=== PATIENT | female | born 1935 | race Caucasian/White ===

== ENCOUNTER → 2017-02-07 | Outpatient (CLI) | payer MEDICARE, BC ==
--- NOTE | 2017-02-07 12:54 | XR ---
EXAMINATION TYPE: XR cervical spine comp DATE OF EXAM: 02/07/2017 COMPARISON: NONE HISTORY: Pain TECHNIQUE: Four views are submitted. FINDINGS: The odontoid is intact. There are no compression deformities. The prevertebral soft tissue structur es are within normal limits. Severe degenerative disc disease with large anterior hypertrophic spurs at levels C3-C7. Marked facet arthropathy at all levels. Calcifications in the soft tissue the neck are likely vascular. Biapical pleural thickening. Multilev el foraminal encroachment at all levels bilaterally. Coarsened interstitial changes involving the dwaine g apices may been the basis of chronic interstitial lung disease. IMPRESSION: 1. Severe multilevel degenerative disc disease with bilateral foraminal encroachment recommend follow -up MRI. See above.
== END | disposition home or self-care (01) ==
LOC: RADXRYALE 10:35
PROVIDERS: ATTEND Physician Assistant Medical
DX: M50.31 Other cervical disc degeneration, high cervical region (principal)
CPT/HCPCS: 72050

== ENCOUNTER → 2017-09-16 | Outpatient (CLI) | payer MEDICARE, BC ==
--- NOTE | 2017-09-16 17:33 | XR ---
Right RIBS with PA chest x-ray HISTORY: Trauma 4 days prior, right rib pain Frontal view of the chest and 2 views of the right ribs submitted. No comparisons Chest x-ray is limited, patient is kyphotic and rotated. Interstitial lung disease is noted incidenta lly, the heart may be enlarged. Aorta is dense. Bone mineralization is decreased which could limit sensitivity. No displaced rib fracture is evident. There is no pneumothorax or pleural effusion. Arthropathy noted incidentally in the right shoulder. IMPRESSION: Exam is limited. Bone scan could be performed for increased sensitivity. Interstitial dwaine g disease and possible cardiomegaly. Low bone mineralization limits the exam. Only 2 view exam submit reynaldo of the ribs.
== END | disposition home or self-care (01) ==
LOC: RADXRYALE 11:17
PROVIDERS: ATTEND Physician Assistant Medical
DX: J84.9 Interstitial pulmonary disease, unspecified (principal); R07.89 Other chest pain

== ENCOUNTER 2017-10-26 15:21 | Emergency (ER) | payer MEDICARE, BC ==
[2017-10-26 16:30] LABS: Appearance,Urine Cloudy (Clear); Bacteria,Urine Many /hpf; Bilirubin,Urine Negative (Negative); Blood,Urine Negative (Negative); Color,Urine Yellow; Glucose,Urine (UA) Negative (Negative); Hyaline Casts,Urine 3 /lpf (0-2); Ketones,Urine Negative (Negative); Leukocyte Esterase,Urine Small (Negative); Mucus,Urine Rare /hpf; Nitrite,Urine Negative (Negative); PH, Urine 7.5 (5.0-8.0); Protein,Urine 1+ (Negative); RBC,Urine 8 /hpf (0-5); Specific Gravity,Urine 1.017 (1.001-1.035); Squamous Epithelial Cell,Urine 4 /hpf (0-4); WBC,Urine 29 /hpf (0-5)
[2017-10-26] MEDS ORDERED: ONDANSETRON 4 MG/2 ML VIAL IVP STA (17:21)
--- NOTE | 2017-10-26 17:28 | ED ---
General Adult HPI - General Chief complaint: Recheck/Abnormal Lab/Rx Stated complaint: Hypertension, altered mental status Time Seen by Provider: 10/26/17 17:04 Source: patient, family Mode of arrival: wheelchair Limitations: no limitations - History of Present Illness Initial comments: 82-year-old female patient presents to the emergency department today for evaluation of weakness and disorientation. Patient states that she woke feeling more weak than usual. The family states that she was using her walker inappropriately today and was banging it into a wall repeatedly. They state that she has went to the bathroom repeatedly attempting to urinate. Patient states that she feels shaky. Patient is also reporting nausea. She denies any chest pain, shortness of breath, abdominal pain, constipation, diarrhea, hematuria, dysuria, urinary urgency. She denies any back pain. She denies any fever or chills. Patient denies any recent rash, numbness, tingling, dizziness, headache, visual changes, or any other complaints. Patient does have a history of seizures starting in June 2017 for which she takes Keppra. 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 They deny any seizure activity today. - Related Data Previous Rx's Medication Instructions Recorded Cephalexin [Keflex] 500 mg PO BID #14 cap 10/26/17 Allergies Allergy/AdvReac Type Severity Reaction Status Date / Time phenytoin [From Dilantin] Allergy Unknown Verified 10/26/17 16:17 Review of Systems ROS Statement: Those systems with pertinent positive or pertinent negative responses have been documented in the HPI. ROS Other: All systems not noted in ROS Statement are negative. Past Medical History Past Medical History: Atrial Fibrillation, Diabetes Mellitus, Seizure Disorder History of Any Multi-Drug Resistant Organisms: None Reported Past Surgical History: Tubal Ligation Additional Past Surgical History / Comment(s): aneursym Past Psychological History: No Psychological Hx Reported Smoking Status: Never smoker Past Alcohol Use History: None Reported Past Drug Use History: None Reported General Exam Limitations: no limitations General appearance: alert, in no apparent distress, other (This is a well- developed elderly female patient in no acute distress. Vital signs upon presentation are temperature 97.4F, pulse 68, respirations 18, blood pressure 190/90, pulse ox 97% on room air.) Eye exam: Present: normal appearance, PERRL, EOMI. Absent: scleral icterus, conjunctival injection, periorbital swelling ENT exam: Present: normal exam, normal oropharynx, mucous membranes moist Respiratory exam: Absent: normal lung sounds bilaterally (Crackles bilateral bases), respiratory distress, wheezes, rales, rhonchi, stridor Cardiovascular Exam: Present: regular rate, normal rhythm, normal heart sounds. Absent: systolic murmur, diastolic murmur, rubs, gallop, clicks GI/Abdominal exam: Present: soft, normal bowel sounds. Absent: distended, tenderness, guarding, rebound, rigid Back exam: Present: normal inspection. Absent: CVA tenderness (R), CVA tenderness (L) Neurological exam: Present: alert, oriented X3, CN II-XII intact, other ( strength in all four extremities is equal and 3/5. ) Psychiatric exam: Present: normal affect, normal mood Skin exam: Present: warm, dry, intact, normal color. Absent: rash Course Vital Signs 10/26/17 10/26/17 16:13 17:56 Temperature 97.4 F L 98 F Pulse Rate 68 91 Respiratory 18 18 Rate Blood Pressure 198/90 188/73 O2 Sat by Pulse 97 97 Oximetry EKG Findings - EKG Comments: EKG Findings:: EKG obtained at 1745 shows atrial fibrillation with premature ventricular or aberrantly conducted complexes. Ventricular rate is 84, QRS duration 82, QT 356, QTC 420. Medical Decision Making - Medical Decision Making 82-year-old female patient presents to the emergency department today for complaints of weakness and confusion. Patient has had frequency of urination today. Physical examination is relatively unremarkable. Abdomen is soft and nontender. Patient has no CVA tenderness. Neurologic exam is within normal limits. Labs reviewed and showed a normal white blood cell count. Potassium is 3.3, lactic acid 1.0, urinalysis showed a cloudy appearance with 1+ protein, small leukocyte esterase, 8 red blood cells, 29 white blood cells, many bacteria , 3 hyaline casts, rare urine mucus. I did discuss findings and results with the family. Told in her symptoms could be related to urinary tract infection. I did offer admission for IV antibiotics. They state that the patient has appointment with her primary care physician trauma like to try treatment outpatient. We will give her a dose of IV Rocephin here in the department and discharge her home and a prescription of Keflex. We also replaced her potassium. Urine has been cultured. Chest x-ray was also obtained while here, did show evidence of possible soft tissue versus pneumonia versus neoplasm in the right lung, I did discuss this finding with the family as well and told follow-up x-ray should be obtained. Return parameters discussed in detail. They verbalize understanding and agree with this plan. - Lab Data Result diagrams: 10/26/17 17:53 10/26/17 17:53 Lab Results 10/26/17 10/26/17 10/26/17 Range/Units 16:18 17:53 17:53 WBC 8.4 (3.8-10.6) k/uL RBC 3.78 L (3.80-5.40) m/uL Hgb 11.5 (11.4-16.0) gm/dL Hct 34.2 (34.0-46.0) % MCV 90.5 (80.0-100.0) fL MCH 30.4 (25.0-35.0) pg MCHC 33.6 (31.0-37.0) g/dL RDW 13.4 (11.5-15.5) % Plt Count 266 (150-450) k/uL Neutrophils % 72 % Lymphocytes % 16 % Monocytes % 8 % Eosinophils % 3 % Basophils % 0 % Neutrophils # 6.0 (1.3-7.7) k/uL Lymphocytes # 1.3 (1.0-4.8) k/uL Monocytes # 0.7 (0-1.0) k/uL Eosinophils # 0.2 (0-0.7) k/uL Basophils # 0.0 (0-0.2) k/uL PT (9.0-12.0) sec INR (<1.2) APTT (22.0-30.0) sec Sodium (137-145) mmol/L Potassium (3.5-5.1) mmol/L Chloride (98-107) mmol/L Carbon Dioxide (22-30) mmol/L Anion Gap mmol/L BUN (7-17) mg/dL Creatinine (0.52-1.04) mg/dL Est GFR (CKD-EPI)AfAm (>60 ml/min/1.73 sqM) Est GFR (CKD-EPI)NonAf (>60 ml/min/1.73 sqM) Glucose (74-99) mg/dL Plasma Lactic Acid Babak (0.7-2.0) mmol/L Calcium (8.4-10.2) mg/dL Total Bilirubin (0.2-1.3) mg/dL AST (14-36) U/L ALT (9-52) U/L Alkaline Phosphatase (38-126) U/L Total Creatine Kinase 30 (30-135) U/L CK-MB (CK-2) 0.4 (0.0-2.4) ng/mL CK-MB (CK-2) Rel Index 1.3 Troponin I 0.030 (0.000-0.034) ng/mL Total Protein (6.3-8.2) g/dL Albumin (3.5-5.0) g/dL Urine Color Yellow Urine Appearance Cloudy H (Clear) Urine pH 7.5 (5.0-8.0) Ur Specific [place] 1.017 (1.001-1.035) Urine Protein 1+ H (Negative) Urine Glucose (UA) Negative (Negative) Urine Ketones Negative (Negative) Urine Blood Negative (Negative) Urine Nitrite Negative (Negative) Urine Bilirubin Negative (Negative) Urine Urobilinogen 4.0 (<2.0) mg/dL Ur Leukocyte Esterase Small H (Negative) Urine RBC 8 H (0-5) /hpf Urine WBC 29 H (0-5) /hpf Ur Squamous Epith Cells 4 (0-4) /hpf Urine Bacteria Many H (None) /hpf Hyaline Casts 3 H (0-2) /lpf Urine Mucus Rare H (None) /hpf 10/26/17 10/26/17 10/26/17 Range/Units 17:53 17:53 17:53 WBC (3.8-10.6) k/uL RBC (3.80-5.40) m/uL Hgb (11.4-16.0) gm/dL Hct (34.0-46.0) % MCV (80.0-100.0) fL MCH (25.0-35.0) pg MCHC (31.0-37.0) g/dL RDW (11.5-15.5) % Plt Count (150-450) k/uL Neutrophils % % Lymphocytes % % Monocytes % % Eosinophils % % Basophils % % Neutrophils # (1.3-7.7) k/uL Lymphocytes # (1.0-4.8) k/uL Monocytes # (0-1.0) k/uL Eosinophils # (0-0.7) k/uL Basophils # (0-0.2) k/uL PT 10.7 (9.0-12.0) sec INR 1.1 (<1.2) APTT 22.5 (22.0-30.0) sec Sodium 138 (137-145) mmol/L Potassium 3.3 L (3.5-5.1) mmol/L Chloride 95 L (98-107) mmol/L Carbon Dioxide 32 H (22-30) mmol/L Anion Gap 11 mmol/L BUN 15 (7-17) mg/dL Creatinine 0.75 (0.52-1.04) mg/dL Est GFR (CKD-EPI)AfAm 85 (>60 ml/min/1.73 sqM) Est GFR (CKD-EPI)NonAf 74 (>60 ml/min/1.73 sqM) Glucose 103 H (74-99) mg/dL Plasma Lactic Acid [place] 1.0 (0.7-2.0) mmol/L Calcium 11.2 H (8.4-10.2) mg/dL Total Bilirubin 0.7 (0.2-1.3) mg/dL AST 12 L (14-36) U/L ALT 21 (9-52) U/L Alkaline Phosphatase 100 (38-126) U/L Total Creatine Kinase (30-135) U/L CK-MB (CK-2) (0.0-2.4) ng/mL CK-MB (CK-2) Rel Index Troponin I (0.000-0.034) ng/mL Total Protein 7.3 (6.3-8.2) g/dL Albumin 4.2 (3.5-5.0) g/dL Urine Color Urine Appearance (Clear) Urine pH (5.0-8.0) Ur Specific [place] (1.001-1.035) Urine Protein (Negative) Urine Glucose (UA) (Negative) Urine Ketones (Negative) Urine Blood (Negative) Urine Nitrite (Negative) Urine Bilirubin (Negative) Urine Urobilinogen (<2.0) mg/dL Ur Leukocyte Esterase (Negative) Urine RBC (0-5) /hpf Urine WBC (0-5) /hpf Ur Squamous Epith Cells (0-4) /hpf Urine Bacteria (None) /hpf Hyaline Casts (0-2) /lpf Urine Mucus (None) /hpf - Radiology Data Radiology results: report reviewed, image reviewed Chronic interstitial changes are again noted. Increased opacity in the periphery of the right chest could be overlying soft tissue atelectasis and/or pneumonia and/or neoplasm. Cardiac silhouette is unchanged. No pneumothorax or pleural effusion is seen. There is diffuse osteopenia. Impression by Dr. Jose shows vague increased opacities in the periphery of the right lung most likely overlying soft tissue and compared to previous exam and allowing for differences in technique. Other etiologies are not excluded including atelectasis pneumonia and neoplasm. Disposition Clinical Impression: Urinary tract infection Disposition: HOME SELF-CARE Condition: Good Instructions: Urinary Tract Infection in Women (ED) Additional Instructions: Increase fluids. Complete antibiotic prescription in full. Follow-up with her primary care physician tomorrow as you have planned. Return here immediately for any new, worsening, or concerning symptoms. Prescriptions: Cephalexin [Keflex] 500 mg PO BID #14 cap Is patient prescribed a controlled substance at d/c from ED?: No Referrals: Adam Huntley DO [Primary Care Provider] - 1-2 days Time of Disposition: 18:50
[2017-10-26 18:10] LABS: Basophils % (A) 0 %; Eosinophils # (A) 0.2 k/uL (0-0.7); Eosinophils % (A) 3 %; HCT 34.2 % (34.0-46.0); HGB 11.5 gm/dL (11.4-16.0); Lymphocytes # (A) 1.3 k/uL (1.0-4.8); Lymphocytes % (A) 16 %; MCH 30.4 pg (25.0-35.0); MCHC 33.6 g/dL (31.0-37.0); MCV 90.5 fL (80.0-100.0); Mean Platelet Volume 7.4; Monocytes # (A) 0.7 k/uL (0-1.0); Monocytes % (A) 8 %; Neutrophils % (A) 72 %; Platelet Count 266 k/uL (150-450); RBC 3.78 m/uL (3.80-5.40); RDW 13.4 % (11.5-15.5); WBC 8.4 k/uL (3.8-10.6)
[2017-10-26 18:12] LABS: INR 1.1 (<1.2); Partial Thromboplastin Time 22.5 sec (22.0-30.0); Prothrombin Time 10.7 sec (9.0-12.0)
[2017-10-26 18:15] LABS: Albumin 4.2 g/dL (3.5-5.0); Calcium 11.2 mg/dL (8.4-10.2); Potassium 3.3 mmol/L (3.5-5.1); Total Bilirubin 0.7 mg/dL (0.2-1.3); Total Protein 7.3 g/dL (6.3-8.2)
--- NOTE | 2017-10-26 18:23 | XR ---
EXAMINATION TYPE: XR chest 2V DATE OF EXAM: 10/26/2017 COMPARISON: September 16, 2017 HISTORY: Weakness TECHNIQUE: Frontal and lateral views of the chest are obtained. FINDINGS: Chronic interstitial changes are again noted. Increased opacity in the periphery of the ri ght chest could be overlying soft tissue atelectasis and/or pneumonia and/or neoplasm. Cardiac silhou ette is unchanged. No pneumothorax or pleural effusion is seen. There is diffuse osteopenia. IMPRESSION: Vague increased opacities in the periphery of the right lung most likely overlying soft tissue and co mpared to previous exam and allowing for differences in technique. Other etiologies are not excluded including atelectasis pneumonia and neoplasm.
[2017-10-26 18:38] LABS: Creatine Kinase MB 0.4 ng/mL (0.0-2.4); Troponin I 0.03 ng/mL (0.000-0.034)
[2017-10-26] MEDS ORDERED: cefTRIAXone IN SWFI 1,000 MG/10 ML SYRINGE IVP STA (18:46)
[2017-10-26] MEDS ORDERED: POTASSIUM CHLORIDE ER 20 MEQ TAB.ER PO STA (18:47)
[2017-10-26 19:32] VITALS: BP 174/74; PULSE 80; RESP 20; TEMP 98.2
== END 2017-10-26 19:31 | disposition home or self-care (01) ==
LOC: EC 15:21
DX: N39.0 Urinary tract infection, site not specified (principal); R41.82 Altered mental status, unspecified; R11.0 Nausea; E87.6 Hypokalemia; Z88.8 Allergy status to other drugs, medicaments and biological substances
CPT/HCPCS: 36415; 93005; 80053; 82550; 82553; 83605; 84484; 85025; 85610; 85730; 81001; 87040; 87086; 71046; 99285; 96374; 96375; J2405; J0696; 87077; 87186

== ENCOUNTER → 2018-03-06 | Outpatient (CLI) | payer MEDICARE, BC ==
--- NOTE | 2018-03-06 12:48 | XR ---
EXAMINATION TYPE: XR chest 2V DATE OF EXAM: 03/06/2018 COMPARISON: Prior chest x-ray 10/26/2017 HISTORY: Cough and shortness of breath TECHNIQUE: Frontal and lateral views of the chest are obtained. FINDINGS: Diffuse interstitial lung disease is again noted, there may be underlying honeycombing. No evident pneumothorax or pleural effusion. Heart remains enlarged. Patient is rotated. Pulmonary vasc ularity and checo not significantly changed. There is a spinal curvature present. Bone mineralization is reduced. IMPRESSION: Interstitial lung disease is extensive.
== END | disposition home or self-care (01) ==
LOC: RADXRYALE 11:05
PROVIDERS: ATTEND Physician Assistant Medical
DX: J84.9 Interstitial pulmonary disease, unspecified (principal)
CPT/HCPCS: 71046

== ENCOUNTER → 2018-09-30 | Outpatient (CLI) | payer MEDICARE, BC ==
--- NOTE | 2018-10-01 14:35 | CT ---
EXAMINATION TYPE: CT ChestAbdPelvis wo/w con DATE OF EXAM: 09/30/2018 INDICATION: Abnormal weight loss. COMPARISON: CT abdomen and pelvis 07/26/2015 CT DLP: 818.4 mGycm CONTRAST: Performed with Oral Contrast and with IV Contrast, patient injected with 100ml mL of Isovue 300. TECHNIQUE: Axial images at 5 mm thick sections. Reconstructed images in the coronal plane. Delayed images through the kidneys. FINDINGS: CT CHEST: None Portion of the thyroid visualized is normal. There appears to be scarring and thickening at the bilateral lung apices. Consider follow-up CT chest in 3-6 months to confirm stability. Neoplasm is not excluded on the basis of this examination. There are increased lung markings throughout the bilateral lung [place]. Some pulmonary fibrosis is li severino present. No enlarged mediastinal or hilar adenopathy is evident. Scattered small lymph nodes are present. The ascending aorta diameter at the level of the main pulmonary artery is 3.6 cm. The main pulmonary artery diameter at the bifurcation is 2.5 cm. Mild coronary artery calcifications present. CT ABDOMEN: Liver: Normal Spleen: Normal Pancreas: Atrophic Adrenal glands: The adrenal glands are normal. Gallbladder: Normal Kidneys: No masses are evident. No hydronephrosis is present. No cysts are present. No renal stone s are evident. Aorta: Vascular calcification is within the aorta. Inferior vena cava: Normal. CT PELVIS: Loops of bowel within the abdomen and pelvis are normal. There are loops of bowel which are incom pletely distended or lack oral contrast limiting their evaluation. Contrast extends to the descending colon region. There is a fecal bolus of the rectum. Appendix: Normal as visualized. Urinary bladder: Partially decompressed limiting evaluation. Genitourinary structures: Air-filled vaginal vault appears to be present. Uterus is absent. Adnexal r egions are clear. Osseous structures: No suspicious lytic or sclerotic lesions. Facet degenerative changes are present. IMPRESSIONS: 1. Pulmonary fibrosis. There is irregular lung thickening at the lung apices bilaterally. Underlying neoplasm is not excluded. Consider short-term follow-up. 2. No suspicious interval changes CT abdomen and pelvis.
== END | disposition home or self-care (01) ==
LOC: RADCTMAIN 13:36
DX: J84.10 Pulmonary fibrosis, unspecified (principal); J98.4 Other disorders of lung; R63.4 Abnormal weight loss
CPT/HCPCS: 82565; 84520; 71270; 74178; 36415; Q9967

== ENCOUNTER → 2018-10-02 | Outpatient (CLI) | payer MEDICARE, BC ==
--- NOTE | 2018-10-02 13:23 | XR ---
EXAM TYPE: LUMBAR SPINE X RAY SERIES COMPARISON: CT scan 09/30/2018, lumbar spine series 08/11/2015 HISTORY: Pain TECHNIQUE: 4 views are submitted. FINDINGS: There is diffuse osteopenia. Curvature the spine noted. Due to overlying bowel gas and retained contr ast assessment is limited. There are compression deformities of L5 and T12 of indeterminate age. IMPRESSION: 1. There is progression of compression fracture of L5 relative to the exam of 2016. 2. There is progression of the compression fracture of T12 relative to the prior exam. Correlate with MRI as clinically warranted. 3. Multilevel degenerative disc disease. A Yellow level critical message alert has been initiated for Adam Huntley DO via the [employer] Critical Results System on 10/02/2018 1:21 PM. This message alert has been sent to Adam liard DO via the preferences provided by the clinician for the receipt of Radiology Critical Findings. Message ID [id number].
== END | disposition home or self-care (01) ==
LOC: RADXRYALE 11:52
PROVIDERS: ATTEND Family Medicine
DX: S32.059G Unspecified fracture of fifth lumbar vertebra, subsequent encounter for fracture with delayed healing (principal); S22.089G Unspecified fracture of T11-T12 vertebra, subsequent encounter for fracture with delayed healing; M51.36 Other intervertebral disc degeneration, lumbar region
CPT/HCPCS: 72100

== ENCOUNTER 2018-10-05 15:16 | Inpatient (IN) | payer MEDICARE, BC ==
[2018-10-05] MEDS ORDERED: HYDROmorphone 1 MG/ML 1 ML SYRINGE IVP STA ×2 (16:11→19:04)
[2018-10-05] MEDS ORDERED: KETOROLAC 60 MG/2 ML VIAL IVP STA (16:11)
--- NOTE | 2018-10-05 16:15 | ED ---
General Adult HPI - General Source: patient, RN notes reviewed Mode of arrival: EMS Limitations: no limitations <Martin Flynn - Last Filed: 10/05/18 17:02> <Martin Spears - Last Filed: 10/05/18 19:28> - General Chief complaint: Fall Stated complaint: fall Time Seen by Provider: 10/05/18 15:45 - History of Present Illness Initial comments: This is an 83-year-old female presents to the emergency department complaining of lower back pain particularly on the left. Patient states she fell on Friday landed on her buttocks and back and since then the pain is been getting progressively worse. Patient states she seen her primary medical care doctor he did x-rays and gave her a shot for pain but the pain continues to get worse per patient denies any numbness or weakness. Patient states problem is anytime she moves she gets the pain in her lower back. Patient denies any other injury since that time. Patient denies any fever chills. Patient denies any chest pain shortness of breath or difficulty breathing. Patient denies any abdominal pain. Patient denies any dysuria hematuria urinary frequency. (Martin Flynn) - Related Data Home Medications Medication Instructions Recorded Confirmed Carvedilol [Coreg] 6.25 mg PO BID 10/05/18 10/05/18 Cholecalciferol [Vitamin D3] 1,000 unit PO DAILY 10/05/18 10/05/18 Clopidogrel [Plavix] 75 mg PO DAILY@1200 10/05/18 10/05/18 Digestive Probiotic 1 tab PO DAILY 10/05/18 10/05/18 Lacosamide [Vimpat] 50 mg PO Q12H 10/05/18 10/05/18 Lovastatin [Mevacor] 20 mg PO HS 10/05/18 10/05/18 Metoclopramide [Reglan] 5 mg PO TID 10/05/18 10/05/18 Ondansetron [Zofran ODT] 4 mg PO TID PRN 10/05/18 10/05/18 Pantoprazole [Protonix] 40 mg PO DAILY 10/05/18 10/05/18 Quinapril HCl [Accupril] 10 mg PO DAILY@1200 10/05/18 10/05/18 guaiFENesin [Mucinex] 600 mg PO BID 10/05/18 10/05/18 levETIRAcetam [Keppra Oral 1,000 mg PO BID 10/05/18 10/05/18 Solution] metFORMIN HCL [Glucophage] 500 mg PO DAILY 10/05/18 10/05/18 Allergies Allergy/AdvReac Type Severity Reaction Status Date / Time phenytoin [From Dilantin] Allergy Anaphylaxis Verified 10/05/18 16:24 Review of Systems ROS Other: All systems not noted in ROS Statement are negative. <Martin Flynn - Last Filed: 10/05/18 17:02> ROS Other: All systems not noted in ROS Statement are negative. <Martin Spears - Last Filed: 10/05/18 19:28> ROS Statement: Those systems with pertinent positive or pertinent negative responses have been documented in the HPI. Past Medical History Past Medical History: Atrial Fibrillation, Diabetes Mellitus, Seizure Disorder History of Any Multi-Drug Resistant Organisms: None Reported Past Surgical History: Tubal Ligation Additional Past Surgical History / Comment(s): aneursym Past Psychological History: No Psychological Hx Reported Smoking Status: Never smoker Past Alcohol Use History: None Reported Past Drug Use History: None Reported <Martin Flynn - Last Filed: 10/05/18 17:02> General Exam Limitations: no limitations <Martin Flynn - Last Filed: 10/05/18 17:02> - General Exam Comments Initial Comments: GENERAL: Patient is somewhat cachectic in appearance but alert and oriented 4. ENT: Neck is soft and supple. No significant lymphadenopathy is noted. Oropharynx is clear. Moist mucous membranes. Neck has full range of motion without eliciting any pain. EYES: The sclera were anicteric and conjunctiva were pink and moist. Extraocular movements were intact and pupils were equal round and reactive to light. Eyelids were unremarkable. PULMONARY: Unlabored respirations. Good breath sounds bilaterally. No audible rales rhonchi or wheezing was noted. CARDIOVASCULAR: There is a regular rate and rhythm without any murmurs gallops or rubs. ABDOMEN: Soft and nontender with normal bowel sounds. SKIN: Skin is clear with no lesions or rashes and otherwise unremarkable. NEUROLOGIC: Patient is alert and oriented x3. Cranial nerves II through XII are grossly intact. Motor and sensory are also intact. Normal speech, volume and content. Symmetrical smile. MUSCULOSKELETAL: Patient has some tenderness of the lower lumbar spine as well as the sacral area especially on the left. LYMPHATICS: No significant lymphadenopathy is noted PSYCHIATRIC: Normal psychiatric evaluation. (Martin Flynn) Course <Martin Spears - Last Filed: 10/05/18 19:28> Vital Signs 10/05/18 15:49 Temperature 97.0 F L Pulse Rate 79 Respiratory 18 Rate Blood Pressure 180/117 O2 Sat by Pulse 97 Oximetry - Reevaluation(s) Reevaluation #1: 10/05/18 19:28 Medical record is reviewed (Martin Spears) Reevaluation #2: 10/05/18 19:28 Is unable to ambulate or move, still has pain (Martin Spears) Medical Decision Making <Martin Flynn - Last Filed: 10/05/18 17:02> - Radiology Data Radiology results: report reviewed (CT of the lumbosacral spine positive for fracture), image reviewed <Martin Spears - Last Filed: 10/05/18 19:28> - Medical Decision Making Dr. Spears to taking over the care of this patient at 5:00 (Martin Flynn) 83 female to ER for evaluation status post fall serious back pain and inability to ambulate no ADLs. T12 fracture acute, will admit for pain control and possible rehab placement (Martin Spears) - Lab Data Lab Results 10/05/18 Range/Units 19:15 Urine Color Yellow Urine Appearance Cloudy H (Clear) Urine pH 5.5 (5.0-8.0) Ur Specific [place] 1.013 (1.001-1.035) Urine Protein Trace H (Negative) Urine Glucose (UA) Negative (Negative) Urine Ketones 1+ H (Negative) Urine Blood Negative (Negative) Urine Nitrite Negative (Negative) Urine Bilirubin Negative (Negative) Urine Urobilinogen 2.0 (<2.0) mg/dL Ur Leukocyte Esterase Small H (Negative) Urine RBC 2 (0-5) /hpf Ur Squamous Epith Cells 2 (0-4) /hpf Urine Bacteria Many H (None) /hpf Urine Mucus Rare H (None) /hpf Disposition <Martin Flynn - Last Filed: 10/05/18 17:02> Is patient prescribed a controlled substance at d/c from ED?: No <Martin Spears - Last Filed: 10/05/18 19:28> Clinical Impression: Fall, Acute low back pain, Back contusion, T12 compression fracture Disposition: ADMITTED IP TO THIS HOSP Condition: Good Instructions (If sedation given, give patient instructions): Fall Prevention for Older Adults (ED), Back Pain (ED) Referrals: Adam Huntley DO [Primary Care Provider] - 1-2 days
[2018-10-05] MEDS: ONDANSETRON 4 MG/2 ML VIAL IVP STA (16:23)
--- NOTE | 2018-10-05 18:14 | CT ---
EXAMINATION TYPE: CT sacrum wo con DATE OF EXAM: 10/05/2018 COMPARISON: None HISTORY: Fall, low back pain. CT DLP: 524.3 mGycm Automated exposure control for dose reduction was used. FINDINGS: Sacral and coccygeal segments have normal alignment. There is osteopenia. I see no fracture line. Sac roiliac joints are intact. There is atherosclerotic vascular calcification. IMPRESSION: NO ACUTE ABNORMALITY OF THE SACRUM AND COCCYX. NO FRACTURE SEEN.
--- NOTE | 2018-10-05 18:23 | CT ---
EXAMINATION TYPE: CT lumbar spine wo con DATE OF EXAM: 10/05/2018 6:07 PM COMPARISON: 09/30/2018 HISTORY: Fall, low back pain. CT DLP: 524.3 combined dlp mGycm Automated exposure control for dose reduction was used. Unenhanced CT of the lumbar spine was performed. Bone and soft tissue window settings are submitted as well as coronal and sagittal reconstructions. There is 50% compression deformity of the L5 vertebral body. There is osteopenia. There is 40% compre ssion deformity of T12 vertebral body. Abdominal aorta is atheromatous. Sacroiliac joints are intact. Posterior elements appear intact. There is hypertrophic multilevel lumbar facet arthropathy. IMPRESSION: There is a compression fracture of T12 that has progressed compared to old CT scan of 09/30/2018 and co nsistent with continuation of fracture. There is old fracture of L5 unchanged.
[2018-10-05] MEDS ORDERED: SODIUM CHLORIDE 0.9% 1,000 ML IV ONE (19:04)
[2018-10-05] MEDS ORDERED: SODIUM CHLORIDE 0.9% 1,000 ML IV STA ×2 (19:04)
[2018-10-05] MEDS ORDERED: SODIUM CHLORIDE 0.9% 500 ML 500 ML IV STA (19:04)
[2018-10-05 19:25] LABS: Appearance,Urine Cloudy (Clear); Bacteria,Urine Many /hpf; Bilirubin,Urine Negative (Negative); Blood,Urine Negative (Negative); Color,Urine Yellow; Glucose,Urine (UA) Negative (Negative); Ketones,Urine 1+ (Negative); Leukocyte Esterase,Urine Small (Negative); Mucus,Urine Rare /hpf; Nitrite,Urine Negative (Negative); PH, Urine 5.5 (5.0-8.0); Protein,Urine Trace (Negative); RBC,Urine 2 /hpf (0-5); Specific Gravity,Urine 1.013 (1.001-1.035); Squamous Epithelial Cell,Urine 2 /hpf (0-4)
[2018-10-05 20:34] LABS: Albumin 3.2 g/dL (3.5-5.0); Calcium 8.7 mg/dL (8.4-10.2); Magnesium 1.6 mg/dL (1.6-2.3); Phosphorus 3.3 mg/dL (2.5-4.5); Total Bilirubin 1.4 mg/dL (0.2-1.3); Total Protein 6.5 g/dL (6.3-8.2)
[2018-10-05 20:37] LABS: Prothrombin Time 10.7 sec (9.0-12.0)
[2018-10-05 20:40] LABS: Basophils % (A) 0 %; Eosinophils # (A) 0.1 k/uL (0-0.7); Eosinophils % (A) 1 %; HCT 33.6 % (34.0-46.0); HGB 11.3 gm/dL (11.4-16.0); Lymphocytes # (A) 0.8 k/uL (1.0-4.8); Lymphocytes % (A) 7 %; MCHC 33.8 g/dL (31.0-37.0); MCV 88.9 fL (80.0-100.0); Mean Platelet Volume 7.5; Monocytes # (A) 0.9 k/uL (0-1.0); Monocytes % (A) 9 %; Neutrophils # (A) 8.8 k/uL (1.3-7.7); Neutrophils % (A) 81 %; Platelet Count 201 k/uL (150-450); RBC 3.78 m/uL (3.80-5.40); RDW 13.3 % (11.5-15.5); WBC 10.9 k/uL (3.8-10.6)
[2018-10-06 07:17] LABS: Glucose,Whole Blood 77 mg/dL (75-99)
[2018-10-06] MEDS: HYDROmorphone 0.5 MG/0.5 ML SYRINGE IVP PRN ×2 (08:30→21:14)
[2018-10-06] MEDS ORDERED: ALPRAZolam 0.25 MG TAB PO PRN (10:08)
[2018-10-06] MEDS ORDERED: CARVEDILOL 6.25 MG TAB PO STA (11:05)
[2018-10-06] MEDS: LISINOPRIL 10 MG TAB PO SCH (11:29)
[2018-10-06] MEDS: METOCLOPRAMIDE 5 MG TAB PO SCH (11:30)
[2018-10-06] MEDS: CLOPIDOGREL 75 MG TAB PO SCH (11:30)
[2018-10-06] MEDS: ONDANSETRON 4 MG/2 ML VIAL IVP STA (11:36)
[2018-10-06 11:39] LABS: Glucose,Whole Blood 82 mg/dL (75-99)
[2018-10-06] MEDS: levETIRAcetam ORAL SOLN 500 MG/5 ML CUP PO SCH (11:42)
[2018-10-06] MEDS: LACOSAMIDE 50 MG TABLET PO SCH ×2 (11:43→22:56)
[2018-10-06 15:38] VITALS: BMI 25.8
[2018-10-06] MEDS: CARVEDILOL 6.25 MG TAB PO SCH (16:47)
[2018-10-06 17:17] LABS: Glucose,Whole Blood 118 mg/dL (75-99)
[2018-10-06 20:13] LABS: Glucose,Whole Blood 136 mg/dL (75-99)
[2018-10-06] MEDS: ATORVASTATIN 10 MG TAB PO SCH (22:52)
[2018-10-06] MEDS: guaiFENesin 600 MG TABLET.ER PO SCH (22:53)
[2018-10-06] MEDS: HEPARIN SODIUM,PORCINE 5,000 UNIT/ML 1 ML VIAL SQ SCH (22:55)
--- NOTE | 2018-10-07 00:37 | HP ---
HISTORY AND PHYSICAL DATE OF SERVICE: 10/06/2018 CHIEF COMPLAINT: Fall and back pain. HISTORY OF PRESENT ILLNESS: This is this 83-year-old female with a past medical history of multiple medical problems including atrial fibrillation, ,diabetes, seizure disorder, brain aneurysm, tubal ligation being for Dr. Adam Huntley in the outpatient setting, was being evaluated for weight loss recently. The patient apparently had a CT scan. Patient went to the parking lot and patient apparently fell. Patient complaining of back pain. Patient is not getting up for the last couple days. The family is concerned. He was taken to [facility] and admitted for further evaluation and treatment. Initial evaluation showed WBC 10.9, and the patient also had evidence of UTI. Patient also had a lumbar spine CT scan which showed whole fracture L5 and compression fracture of T12 that is progressed compared to the old one. The patient was admitted for evaluation and treatment. There is no history of fevers or rigors. No history of headache, loss of consciousness or seizures. PAST MEDICAL HISTORY: History of atrial ablation, history of diabetes, seizure, history of brain aneurysm. MEDICATIONS: 1. Glucophage 500 mg p.o. daily. 2. Keppra 1000 mg b.i.d. 3. Mucinex mg b.i.d. 4. Lexapro 10 mg. 5. Protonix 40 mg. 6. Zofran 4 mg t.i.d. p.r.n. 7. Reglan 5 mg p.o. t.i.d. 8. Mevacor 20 mg p.o. at bedtime. 9. Vimpat 50 mg p.o. b.i.d. 10.Digestive probiotic 1 tablet p.o. daily. 11.Plavix 75 mg. 12.Vitamin D 3000 daily. 13.Coreg 6.25 mg p.o. b.i.d. ALLERGIES: PHENYTOIN. FAMILY HISTORY: History of arthritis. SOCIAL HISTORY: No history of smoking, no history of alcohol intake. REVIEW OF SYSTEMS: ENT: No diminished hearing or diminished vision. CARDIOVASCULAR: No angina or palpitations. RESPIRATORY: As mentioned earlier. GI: No nausea. : No dysuria or hematuria. MUSCULOSKELETAL: As mentioned. ENDOCRINE: Diabetes mellitus. CONSTITUTIONAL: As mentioned. PHYSICAL EXAMINATION: Alert oriented x3. Pulse is 84, blood pressure 160/83, respirations 16, temperature 97.2, pulse ox 100 percent on 2 L HEENT: Conjunctivae normal. Oral mucosa moist. NECK: No jugular venous distention. No lymph node enlargement CARDIOVASCULAR: S1 and S2 muffled. RESPIRATORY SYSTEM: Breath sounds diminished at the bases. No rhonchi. No crackles. ABDOMEN: Soft. EXTREMITIES: No edema. NERVOUS SYSTEM: No numbness or weakness. BACK: Tenderness present. LAB STUDIES: WBC 11.1, hemoglobin 11.2, sodium 130, potassium 4. ASSESSMENT: 1. Fall with severe back pain with fracture of T12. 2. Gait dysfunction. 3. Acute urinary tract infection present on admission. 4. Hyponatremia. 5. Gait dysfunction. 6. Increased WBC. 7. Anemia, normocytic. 8. Atrial fibrillation. 9. Diabetes mellitus type 2. 10.Seizure disorder. 11.History of brain aneurysm. RECOMMENDATIONS AND DISCUSSION: In this 83 woman who presented with multiple complex medical issues, we will monitor the patient closely, continue the current medications and symptomatic treatment. Would recommend pain medications both intravenous and oral. Otherwise I would also recommend orthopedic evaluation for continued monitoring. The patient had severe pain at this time. Patient will need more than 2 days of inpatient hospitalization for continued evaluation and treatment. I would also recommend possible ECF rehab also. As far as UTI is concerned, would recommend a set of cultures and IV antibiotic. Resume the home medications. DVT prophylaxis. Repeat labs. IV fluids will also will be ordered. Otherwise, prognosis guarded because of multiple complex medical issues. n PIA / CHAITANYAN: [id number] / MTDD
[2018-10-07] MEDS: METOCLOPRAMIDE 5 MG TAB PO SCH ×4 (00:41→20:07)
[2018-10-07] MEDS: levETIRAcetam ORAL SOLN 500 MG/5 ML CUP PO SCH ×3 (00:41→20:06)
[2018-10-07] MEDS: HYDROmorphone 0.5 MG/0.5 ML SYRINGE IVP PRN (06:35)
[2018-10-07] MEDS: CARVEDILOL 6.25 MG TAB PO SCH ×2 (06:36→17:02)
[2018-10-07 07:12] LABS: Glucose,Whole Blood 98 mg/dL (75-99)
--- NOTE | 2018-10-07 09:13 | P.CNOR ---
History of Present Illness - [facility] Consult date: 10/06/18 Requesting physician: Emilie De La Torre Consult reason: fracture (Acute T12 compression fracture deformity status post fall) History of present illness: Patient is a very pleasant 83-year-old female who is seen and examined the bedside for further evaluation in regards to acute thoracic back pain and evidence of acute T12 compression fracture deformity. Patient is having some difficulty with constipation. Family states the patient has not been eating much food lately as well. Last week she had a CT abdomen and pelvis with contrast performed on 09/30/2017. Following the imaging she felt sick and nauseous. She fell in the parking lot. Since that time she has had an exacerbation of thoracic back pain. Her pain was unable to be controlled at home. She was brought to the emergency department via EMS yesterday, 10/05/2018. Multiple imaging modalities were taken at that time including CT of the lumbar spine and CT of the sacrum. X-rays of the lumbar spine were also performed by her primary care provider on 10/02/2018. Patient states she has had significant thoracic back pain since her recent fall on 09/30/2018. Her pain is exacerbated with any activities of the spine. She does admit to chronic low back pain. She feels her symptoms are currently different than her regular chronic pain. She currently denies any specific lower extremity weakness or radiculopathy bilaterally she denies any acute changes in the lower extremities. She normally ambulates with the assistance of a wheeled walker. Her family states she has drifted during ambulation as long as they can remember. Patient continues to have some nausea following her computed tomography scan imaging performed last week. Family states providers her discussing the possibility of a reaction to the contrast used for the computed tomography scan. 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 Past Anesthesia/Blood Transfusion Reactions: No Reported Reaction Past Psychological History: No Psychological Hx Reported Smoking Status: Never smoker Past Alcohol Use History: None Reported Past Drug Use History: None Reported - Past Family History Daughter(s) Additional Family Medical History / Comment(s): arthritis Medications and Allergies Home Medications Medication Instructions Recorded Confirmed Type Carvedilol [Coreg] 6.25 mg PO BID 10/05/18 10/05/18 History Cholecalciferol [Vitamin D3] 1,000 unit PO DAILY 10/05/18 10/05/18 History Clopidogrel [Plavix] 75 mg PO DAILY@1200 10/05/18 10/05/18 History Digestive Probiotic 1 tab PO DAILY 10/05/18 10/05/18 History Lacosamide [Vimpat] 50 mg PO Q12H 10/05/18 10/05/18 History Lovastatin [Mevacor] 20 mg PO HS 10/05/18 10/05/18 History Metoclopramide [Reglan] 5 mg PO TID 10/05/18 10/05/18 History Ondansetron [Zofran ODT] 4 mg PO TID PRN 10/05/18 10/05/18 History Pantoprazole [Protonix] 40 mg PO DAILY 10/05/18 10/05/18 History Quinapril HCl [Accupril] 10 mg PO DAILY@1200 10/05/18 10/05/18 History guaiFENesin [Mucinex] 600 mg PO BID 10/05/18 10/05/18 History levETIRAcetam [Keppra Oral 1,000 mg PO BID 10/05/18 10/05/18 History Solution] metFORMIN HCL [Glucophage] 500 mg PO DAILY 10/05/18 10/05/18 History Allergies Allergy/AdvReac Type Severity Reaction Status Date / Time phenytoin [From Dilantin] Allergy Anaphylaxis Verified 10/05/18 16:24 Physical Examination Physical exam: Patient is awake, alert, and oriented 3 Vital signs stable Good chest excursion with deep inspiration and expiration Abdomen soft nontender Examination of lumbar spine reveals skin is intact with no abrasions, lacerations, or bruises; no erythema, purulence or signs of infection Evidence of thoracolumbar kyphosis Significant pain with palpation of the lower thoracic spine No significant pain with palpation of the lower lumbar spine Dorsiflexion, plantarflexion, and extensor hallucis longus positive sustained bilaterally Patient is able to move legs independently in bed but slowly No lower extremity hyperreflexia bilaterally No signs or symptoms of DVT; no calf pain No pain with internal and external rotation of the hips bilaterally Neurovascularly intact Results Pertinent studies: Lumbar spine CT taken on 10/05/2018: T12 wedging vertebral body compression fracture deformity at approximately 40% height loss that has progressed as compared to recent computed tomography scan performed on 09/30/2018; L5 chronic compression fracture deformity at approximately 50% height loss; osteopenia; sclerosis of the abdominal aorta; multilevel facet hypertrophy CT of the sacrum taken on 10/05/2018: No acute abnormality of the sacrum and coccyx; no evidence of fracture; osteopenia; sacroiliac joints appear to be intact X-ray of the lumbar spine taken on 10/02/2018: T12 compression fracture deformity with progression as compared to recent study performed on 09/30/2018; L5 compression fracture deformity with some progression as compared to previous lumbar imaging taken on 08/11/2015; multilevel degenerative disc disease - Labs Labs: Abnormal Lab Results - Last 24 Hours (Table) 10/05/18 10/05/18 10/05/18 Range/Units 19:15 19:50 19:50 WBC 10.9 H (3.8-10.6) k/uL RBC 3.78 L (3.80-5.40) m/uL Hgb 11.3 L (11.4-16.0) gm/dL Hct 33.6 L (34.0-46.0) % Neutrophils # 8.8 H (1.3-7.7) k/uL Lymphocytes # 0.8 L (1.0-4.8) k/uL Sodium 130 L (137-145) mmol/L Chloride 87 L (98-107) mmol/L Carbon Dioxide 31 H (22-30) mmol/L BUN 26 H (7-17) mg/dL Total Bilirubin 1.4 H (0.2-1.3) mg/dL Albumin 3.2 L (3.5-5.0) g/dL Urine Appearance Cloudy H (Clear) Urine Protein Trace H (Negative) Urine Ketones 1+ H (Negative) Ur Leukocyte Esterase Small H (Negative) Urine WBC 18 H (0-5) /hpf Urine Bacteria Many H (None) /hpf Urine Mucus Rare H (None) /hpf Microbiology - Last 24 Hours (Table) 10/05/18 19:15 Urine Culture - Preliminary Urine,Voided H & H 10/05/18 Range/Units 19:50 Hgb 11.3 L (11.4-16.0) gm/dL Hct 33.6 L (34.0-46.0) % Coagulation 10/05/18 Range/Units 19:50 INR 1.0 (<1.2) Result Diagrams: 10/05/18 19:50 10/05/18 19:50 Assessment and Plan Assessment: Assessment: Acute traumatic T12 compression fracture deformity Thoracic back pain Status post fall Chronic L5 compression fracture deformity Lumbar facet arthropathy Nausea (1) Acute thoracic back pain Current Visit: Yes Status: Acute Code(s): M54.6 - PAIN IN THORACIC SPINE SNOMED Code(s): 829574098 (2) Status post fall Current Visit: Yes Status: Acute Code(s): Z91.81 - HISTORY OF FALLING SNOMED Code(s): 363195032 (3) Lumbar facet arthropathy Current Visit: Yes Status: Acute Code(s): M47.816 - SPONDYLOSIS W/O MYELOPATHY OR RADICULOPATHY, LUMBAR REGION SNOMED Code(s): 433565412 (4) Compression fracture of L5 vertebra Current Visit: Yes Status: Acute Code(s): S32.050A - WEDGE COMPRESSION FRACTURE OF FIFTH LUMBAR VERTEBRA, INIT SNOMED Code(s): 306288874 (5) Traumatic compression fracture of T12 thoracic vertebra Current Visit: Yes Status: Acute Code(s): S22.080A - WEDGE COMPRESSION FRACTURE OF T11-T12 VERTEBRA, INIT SNOMED Code(s): 263889117 (6) Nausea Current Visit: Yes Status: Acute Code(s): R11.0 - NAUSEA SNOMED Code(s): 225999127 Plan: Plan: 1. After reviewing of imaging, physical examination the patient, and further discussion with the patient and the patient's family, we will plan to continue with conservative treatment at this time. Patient recently sustained a fall on 09/30/[address] imaging of the abdomen and pelvis here [facility]. That imaging was taken with contrast. Patient is felt nauseous and fell at that time. After her recent fall she's been experiencing significant thoracic back pain that is exacerbated with any movements of the thoracic spine. Her pain was unable to be controlled she is brought to the emergency department on 10/05/[address] imaging taken at that time did show evidence of a T12 compression fracture deformity which has progressed as compared to imaging performed on 09/30/2018. The patient's pain correlates well with the level of her fracture. Patient does have a history of previous L5 compression fracture deformity which appears stable and chronic. At this time, we will plan for bracing. We will order a [employer] TLSO brace. Prescription has been written, signed, and provided to case management. Once this brace has been delivered and fitted appropriately, patient should wear this brace while sitting upright at great and 45, during ambulation, and during increase activities. Brace does not have to be worn while lying in bed or while bathing. Once this brace is delivered and fitted appropriately, patient is clear for discharge from an orthopedic spine standpoint. We will plan to have her follow-up in approximately 2 weeks for further evaluation outpatient setting. Following discharge, patient may follow-up with Trevin Wylie PA-C or Dr. Cesar Gutierres at [facility] in approximately 2-3 weeks for further evaluation. 2. Patient will continue be seen and examined by medicine for her other medical diagnoses 3. Patient will most likely remain in the hospital until this coming or Friday at which time patient may be discharged to a rehabilitation facility or may be able to be discharged home with home care Time with Patient: Greater than 30 (Including obtaining history, physical examination, reviewing of imaging, and dictation.)
--- NOTE | 2018-10-07 09:15 | P.CNOR ---
History of Present Illness - [facility] Consult date: 10/07/18 Consult reason: fracture (T12 fracture) History of present illness: Patient is a pleasant 83-year-old woman who has been having severe pain in her back and inability to ambulate. Apparently the patient had sustained fracture and had recurrent fall in the parking lot. She had severe pain over the past several days since that fall and has been staying with her kids. She's been unable to get out of bed and was having such significant pain that she was having difficulty with eating any food. She was having worsening of her symptoms and presented to the hospital in this regard. She's had to have worsening of the T12 fracture with progression of the compression fracture. She does have an old L5 compression fracture as well. She's not having shortness of breath. Patient having any nausea or vomiting. She denies any fevers. She denies any changes in her lower extremity in terms of numbness tingling but has not been able to stand due to her pain. She is extensive medical history as well as per her note from medical service is reviewed. Review of Systems Worsening pain in the middle of her back. No weakness in her lower extremities. Unable to stand up or ambulate. She is unable get out of bed on her own. 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 Past Anesthesia/Blood Transfusion Reactions: No Reported Reaction Past Psychological History: No Psychological Hx Reported Smoking Status: Never smoker Past Alcohol Use History: None Reported Past Drug Use History: None Reported - Past Family History Daughter(s) Additional Family Medical History / Comment(s): arthritis Medications and Allergies Home Medications Medication Instructions Recorded Confirmed Type Carvedilol [Coreg] 6.25 mg PO BID 10/05/18 10/05/18 History Cholecalciferol [Vitamin D3] 1,000 unit PO DAILY 10/05/18 10/05/18 History Clopidogrel [Plavix] 75 mg PO DAILY@1200 10/05/18 10/05/18 History Digestive Probiotic 1 tab PO DAILY 10/05/18 10/05/18 History Lacosamide [Vimpat] 50 mg PO Q12H 10/05/18 10/05/18 History Lovastatin [Mevacor] 20 mg PO HS 10/05/18 10/05/18 History Metoclopramide [Reglan] 5 mg PO TID 10/05/18 10/05/18 History Ondansetron [Zofran ODT] 4 mg PO TID PRN 10/05/18 10/05/18 History Pantoprazole [Protonix] 40 mg PO DAILY 10/05/18 10/05/18 History Quinapril HCl [Accupril] 10 mg PO DAILY@1200 10/05/18 10/05/18 History guaiFENesin [Mucinex] 600 mg PO BID 10/05/18 10/05/18 History levETIRAcetam [Keppra Oral 1,000 mg PO BID 10/05/18 10/05/18 History Solution] metFORMIN HCL [Glucophage] 500 mg PO DAILY 10/05/18 10/05/18 History Allergies Allergy/AdvReac Type Severity Reaction Status Date / Time phenytoin [From Dilantin] Allergy Anaphylaxis Verified 10/05/18 16:24 Physical Examination Osteopathic Statement: *. No significant issues noted on an osteopathic structural exam other than those noted in the History and Physical/Consult. - L Spine: dermatomal strength & reflexes bilateral Strength: hip flexion: 5/5 (She has some global weakness to shoulder pain at her upper and lower extremities but no specific focal weakness in her extremity. Her back is tender to palpation at the mid and lower thoracic spine. She is has a great deal of difficulty with any sort of mobilization. Her hips are stable with no pain with internal or external rotation. Pelvis is stable. No crepitus) Results - Labs Labs: Abnormal Lab Results - Last 24 Hours (Table) 10/06/18 10/06/18 Range/Units 17:15 20:12 POC Glucose (mg/dL) 118 H 136 H (75-99) mg/dL Microbiology - Last 24 Hours (Table) 10/05/18 19:15 Urine Culture - Final Urine,Voided H & H 10/05/18 Range/Units 19:50 Hgb 11.3 L (11.4-16.0) gm/dL Hct 33.6 L (34.0-46.0) % Coagulation 10/05/18 Range/Units 19:50 INR 1.0 (<1.2) Result Diagrams: 10/05/18 19:50 10/05/18 19:50 - Diagnostic results CT scan - lumbar myelogram: report reviewed, image reviewed (Computed tomography scan of her lumbar spine is reviewed. She has significant degenerative changes. She has a compression fracture at L5. 50% height loss which appears to be old. There is compression deformity at T12 with about 60% height loss which has progressed from a [place] 30% height loss on earlier CT in September. She has significant stenosis L3 4 L4 5. She is significant facet arthrosis through his lumbar spine. 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 The patient a family do not wish to consider any surgical intervention at this point and I think that treating her conservatively is most reasonable option for her. We'll order a TLSO brace for her to utilize to try to help her mobilization and ambulation. When she has brace we will start to mobilize her with physical therapy and see if she can continue mobilization further. She may need acute placement as she is severely unable to mobilize and ambulate on her own and we'll have case management seizures regards to possibly assisted and continued therapy. We have ordered the brace. The patient has significant arthritic and degenerative changes at her lumbar spine and could have some benefit with anti-inflammatory medications well. She's not having severe specific radiculopathy at this point and I would not plan interventional pain management at least until her fracture has healed next 3 months. It will likely take a few months for a fracture to stabilize heal fully and she'll likely need brace for the next 3 month time. Over that time we can follow her as an outpatient if we're able control her pain.
[2018-10-07] MEDS: guaiFENesin 600 MG TABLET.ER PO SCH ×2 (09:35→20:07)
[2018-10-07] MEDS: HEPARIN SODIUM,PORCINE 5,000 UNIT/ML 1 ML VIAL SQ SCH ×2 (09:35→20:07)
[2018-10-07] MEDS: PANTOPRAZOLE 40 MG TABLET PO SCH (09:35)
[2018-10-07] MEDS: CHOLECALCIFEROL 1,000 UNIT TAB PO SCH (09:35)
[2018-10-07] MEDS: LISINOPRIL 10 MG TAB PO SCH (09:35)
[2018-10-07] MEDS: CLOPIDOGREL 75 MG TAB PO SCH (09:35)
[2018-10-07] MEDS: metFORMIN 500 MG TAB PO SCH (09:35)
[2018-10-07] MEDS: LACOSAMIDE 50 MG TABLET PO SCH ×2 (09:39→20:06)
[2018-10-07 09:40] LABS: Anion Gap 6 mmol/L; Blood Urea Nitrogen 12 mg/dL (7-17); Calcium 8.3 mg/dL (8.4-10.2); Carbon Dioxide 32 mmol/L (22-30); Chloride 94 mmol/L (98-107); Glucose 94 mg/dL (74-99); Potassium 3.4 mmol/L (3.5-5.1); Sodium 132 mmol/L (137-145)
[2018-10-07 09:55] LABS: Basophils % (A) 0 %; Eosinophils # (A) 0.3 k/uL (0-0.7); Eosinophils % (A) 3 %; HCT 29.9 % (34.0-46.0); HGB 10.2 gm/dL (11.4-16.0); Lymphocytes # (A) 0.6 k/uL (1.0-4.8); Lymphocytes % (A) 7 %; MCH 31.1 pg (25.0-35.0); MCHC 34.2 g/dL (31.0-37.0); MCV 90.8 fL (80.0-100.0); Mean Platelet Volume 7.6; Monocytes # (A) 0.8 k/uL (0-1.0); Monocytes % (A) 9 %; Neutrophils # (A) 6.7 k/uL (1.3-7.7); Neutrophils % (A) 78 %; Platelet Count 225 k/uL (150-450); RDW 13.8 % (11.5-15.5); WBC 8.7 k/uL (3.8-10.6)
[2018-10-07 12:42] LABS: Glucose,Whole Blood 118 mg/dL (75-99)
[2018-10-07] MEDS: HYDROcodone/APAP 5-325MG 1 EACH TAB PO PRN ×2 (12:52→20:07)
[2018-10-07 17:16] LABS: Glucose,Whole Blood 117 mg/dL (75-99)
[2018-10-07] MEDS: ATORVASTATIN 10 MG TAB PO SCH (20:06)
--- NOTE | 2018-10-07 20:09 | PN ---
PROGRESS NOTE DATE OF SERVICE: 10/07/2018 This 83-year-old woman who was admitted with a fall and fracture of the T12, which is worse that the previous one, is being closely monitored. Patient was seen by Dr. Gutierres. The patient is complaining of severe back pain at this time. The patient had chronic fracture of the L5 and spinal stenosis, L2, 3, 4, 5. Dr. Gutierres has recommended a brace and continued monitoring. Possible ECF rehab is being contemplated at this time. No chest pain. No palpitations. No fever. On exam, alert and oriented x3. Pulse is 77, blood pressure 186/72, respirations 16, temperature 97.6, pulse ox 100% on 2 L. HEENT: Conjunctivae normal. NECK: No jugular venous distention. CARDIOVASCULAR SYSTEM: S1, S2 muffled. RESPIRATORY SYSTEM: Breath sounds diminished at the bases. A few scattered rhonchi and crackles. ABDOMEN: Soft, non-tender. NERVOUS SYSTEM: No focal deficit. LABS: WBC 8.7, hemoglobin 10.2, sodium 132, potassium 3.4. ASSESSMENT: 1. Fall with severe back pain and fracture of T12. 2. Gait dysfunction. 3. Acute urinary tract infection, present on admission. 4. Hyponatremia. 5. Increased white count. 6. Anemia, normocytic. 7. Atrial fibrillation. 8. Diabetes mellitus, type 2. 9. Seizure disorder. 10.History of brain aneurysm. 11.Hypokalemia. RECOMMENDATIONS AND DISCUSSION: I recommend to continue current medications, continue with the monitoring, symptomatic treatment. Otherwise at this time I would recommend continuing with the pain medications. Closely follow with Orthopedic Surgery. Guarded prognosis. Further recommendations to follow. MMODL / IJN: [id number] /
[2018-10-07 20:39] LABS: Glucose,Whole Blood 144 mg/dL (75-99)
[2018-10-08] MEDS: HYDROcodone/APAP 5-325MG 1 EACH TAB PO PRN ×2 (02:50→18:50)
[2018-10-08 07:10] LABS: Glucose,Whole Blood 107 mg/dL (75-99)
[2018-10-08] MEDS: levETIRAcetam ORAL SOLN 500 MG/5 ML CUP PO SCH ×2 (08:26→21:21)
[2018-10-08] MEDS: PANTOPRAZOLE 40 MG TABLET PO SCH (08:26)
[2018-10-08] MEDS: HEPARIN SODIUM,PORCINE 5,000 UNIT/ML 1 ML VIAL SQ SCH ×2 (08:26→21:21)
[2018-10-08] MEDS: metFORMIN 500 MG TAB PO SCH (08:26)
[2018-10-08] MEDS: guaiFENesin 600 MG TABLET.ER PO SCH ×2 (08:26→21:22)
[2018-10-08] MEDS: CARVEDILOL 6.25 MG TAB PO SCH ×2 (08:26→15:50)
[2018-10-08] MEDS: LACOSAMIDE 50 MG TABLET PO SCH ×2 (08:27→21:22)
[2018-10-08] MEDS: METOCLOPRAMIDE 5 MG TAB PO SCH ×3 (08:27→21:22)
[2018-10-08] MEDS: ONDANSETRON ODT 4 MG TAB PO PRN (09:23)
[2018-10-08 10:57] LABS: Basophils % (A) 0 %; Eosinophils # (A) 0.3 k/uL (0-0.7); Eosinophils % (A) 4 %; HCT 33.5 % (34.0-46.0); HGB 10.5 gm/dL (11.4-16.0); Lymphocytes # (A) 0.8 k/uL (1.0-4.8); Lymphocytes % (A) 11 %; MCH 29.7 pg (25.0-35.0); MCHC 31.4 g/dL (31.0-37.0); MCV 94.4 fL (80.0-100.0); Mean Platelet Volume 7.3; Monocytes # (A) 0.8 k/uL (0-1.0); Monocytes % (A) 10 %; Neutrophils # (A) 5.6 k/uL (1.3-7.7); Neutrophils % (A) 72 %; Platelet Count 221 k/uL (150-450); RBC 3.55 m/uL (3.80-5.40); RDW 13.4 % (11.5-15.5); WBC 7.8 k/uL (3.8-10.6)
[2018-10-08 11:22] LABS: Anion Gap 4 mmol/L; Blood Urea Nitrogen 13 mg/dL (7-17); Calcium 8.5 mg/dL (8.4-10.2); Carbon Dioxide 34 mmol/L (22-30); Chloride 93 mmol/L (98-107); Glucose 124 mg/dL (74-99); Potassium 3.5 mmol/L (3.5-5.1); Sodium 131 mmol/L (137-145)
[2018-10-08] MEDS: CLOPIDOGREL 75 MG TAB PO SCH (11:33)
[2018-10-08] MEDS: CHOLECALCIFEROL 1,000 UNIT TAB PO SCH (11:33)
[2018-10-08] MEDS: LISINOPRIL 10 MG TAB PO SCH (11:33)
[2018-10-08 12:39] LABS: Glucose,Whole Blood 146 mg/dL (75-99)
--- NOTE | 2018-10-08 17:01 | PN ---
PROGRESS NOTE DATE OF SERVICE: 10/08/2018 This 83-year-old woman was admitted with fall and back pain, also had compression fracture of T12. The patient treated symptomatically. Back brace recommended. PT/OT evaluating the patient, possible ECF rehab. Patient complaining of severe pain even on slightest movements. EXAM: Alert and oriented x2. Pulse is 81. Blood pressure 172/84, respirations 18, temperature 96.8, pulse ox 94% on room air. HEENT: Conjunctivae normal. NECK: No jugular venous distention. CARDIOVASCULAR: S1, S2 muffled. RESPIRATIONS: Breath sounds diminished in the bases. A few scattered rhonchi. No crackles. ABDOMEN is soft. NERVOUS SYSTEM: No focal deficits. Examination of the back is tender, even movements in the bed is painful. LAB STUDIES: WBC 11.7, hemoglobin 10.5. ASSESSMENT: 1. Fall with severe back pain and fracture, T12. 2. Gait dysfunction. 3. Acute urinary tract infection present on admission. 4. Hyponatremia. 5. Increased WBC. 6. Anemia, normocytic. 7. Atrial fibrillation. 8. Diabetes mellitus type 2. 9. Seizure disorder. 10.History of brain aneurysm. 11.Hypokalemia. RECOMMENDATIONS AND DISCUSSION: In this 83-year-old woman who presented with multiple complex medical issues, we will monitor the patient closely. Continue current medications, management. Pain medication. PT/OT evaluation, possible ECF rehab. Otherwise, follow closely with Orthopedic surgery. Patient has significant limitations in daily activities and at her age will require some PT/OT evaluation and treatment also to prevent further falls as well as continued monitoring. Further recommendations to follow. MMODL / IJN: [id number] /
[2018-10-08 17:28] LABS: Glucose,Whole Blood 168 mg/dL (75-99)
[2018-10-08 20:44] LABS: Glucose,Whole Blood 171 mg/dL (75-99)
[2018-10-08] MEDS: HYDROmorphone 0.5 MG/0.5 ML SYRINGE IVP PRN (20:53)
[2018-10-08] MEDS: ATORVASTATIN 10 MG TAB PO SCH (21:22)
[2018-10-09 00:03] VITALS: RESP 18
[2018-10-09] MEDS: HYDROmorphone 0.5 MG/0.5 ML SYRINGE IVP PRN (03:20)
[2018-10-09 07:18] LABS: Glucose,Whole Blood 125 mg/dL (75-99)
[2018-10-09] MEDS: PANTOPRAZOLE 40 MG TABLET PO SCH (07:36)
[2018-10-09] MEDS: metFORMIN 500 MG TAB PO SCH (07:37)
[2018-10-09] MEDS: HEPARIN SODIUM,PORCINE 5,000 UNIT/ML 1 ML VIAL SQ SCH (07:37)
[2018-10-09] MEDS: guaiFENesin 600 MG TABLET.ER PO SCH (07:37)
[2018-10-09] MEDS: CARVEDILOL 6.25 MG TAB PO SCH (07:37)
[2018-10-09] MEDS: LACOSAMIDE 50 MG TABLET PO SCH (07:38)
[2018-10-09] MEDS: HYDROcodone/APAP 5-325MG 1 EACH TAB PO PRN ×2 (07:38→14:51)
[2018-10-09] MEDS: METOCLOPRAMIDE 5 MG TAB PO SCH (07:39)
[2018-10-09] MEDS: levETIRAcetam ORAL SOLN 500 MG/5 ML CUP PO SCH (07:39)
--- NOTE | 2018-10-09 11:22 | P.DS ---
Providers Date of admission: 10/06/18 17:29 Attending physician: Emilie De La Torre Consults: 10/06/18 09:37 Consult Physician Routine Consulting Provider: Kalli Gutierres Consult Reason/Comments: T12 fracture Do you want consulting provider notified?: Yes [facility] [place] [facility] Course: Final diagnosis Fall with a severe back pain and Fracture T12 Gait dysfunction Acute UTI present on admission Hyponatremia Increased WBC Anemia normocytic Atrial fibrillation chronic intermittent Diabetes mellitus was type II Seizure disorder History of brain aneurysm Hypokalemia history of present illness This 83-year-old woman with a past medical history multiple medical problems was admitted with the back pain. T12 fracture was noted. Dr. Gutierres saw the patient. Conservative plan of treatment was recommended. Braces arranged. Patient improved significantly. ECF rehab is being arranged. On exam vitals are stable. Cardio S1 and S2 normal. Respirator system clear to auscultation. Abdomen soft nontender nervous system mild diffuse weakness. Discharge disposition Patient be discharged in a stable condition with the guarded prognosis to ECF. Total time taken 35 minutes. Please refer to the medication reconciliation for list of medications. Patient Condition at Discharge: Good Plan - Discharge Summary Discharge Rx Participant: No New Discharge Prescriptions: New Docusate [Colace] 100 mg PO BID #1 capsule HYDROcodone/APAP 5-325MG [[place] 5-325] 1 each PO Q6HR PRN #10 tab PRN Reason: Pain Sennosides-Docusate Sodium [Senokot-S] 1 tab PO BID PRN #1 tablet PRN Reason: Constipation Continue levETIRAcetam [Keppra Oral Solution] 1,000 mg PO BID guaiFENesin [Mucinex] 600 mg PO BID Ondansetron [Zofran ODT] 4 mg PO TID PRN PRN Reason: Nausea Lovastatin [Mevacor] 20 mg PO HS Clopidogrel [Plavix] 75 mg PO DAILY@1200 Carvedilol [Coreg] 6.25 mg PO BID metFORMIN HCL [Glucophage] 500 mg PO DAILY Quinapril HCl [Accupril] 10 mg PO DAILY@1200 Pantoprazole [Protonix] 40 mg PO DAILY Metoclopramide [Reglan] 5 mg PO TID Lacosamide [Vimpat] 50 mg PO Q12H Cholecalciferol [Vitamin D3] 1,000 unit PO DAILY Digestive Probiotic 1 tab PO DAILY Discharge Medication List Carvedilol [Coreg] 6.25 mg PO BID 10/05/18 [History] Cholecalciferol [Vitamin D3] 1,000 unit PO DAILY 10/05/18 [History] Clopidogrel [Plavix] 75 mg PO DAILY@1200 10/05/18 [History] Digestive Probiotic 1 tab PO DAILY 10/05/18 [History] Lacosamide [Vimpat] 50 mg PO Q12H 10/05/18 [History] Lovastatin [Mevacor] 20 mg PO HS 10/05/18 [History] Metoclopramide [Reglan] 5 mg PO TID 10/05/18 [History] Ondansetron [Zofran ODT] 4 mg PO TID PRN 10/05/18 [History] Pantoprazole [Protonix] 40 mg PO DAILY 10/05/18 [History] Quinapril HCl [Accupril] 10 mg PO DAILY@1200 10/05/18 [History] guaiFENesin [Mucinex] 600 mg PO BID 10/05/18 [History] levETIRAcetam [Keppra Oral Solution] 1,000 mg PO BID 10/05/18 [History] metFORMIN HCL [Glucophage] 500 mg PO DAILY 10/05/18 [History] Docusate [Colace] 100 mg PO BID #1 capsule 10/09/18 [Rx] HYDROcodone/APAP 5-325MG [[place] 5-325] 1 each PO Q6HR PRN #10 tab 10/09/18 [Rx] Sennosides-Docusate Sodium [Senokot-S] 1 tab PO BID PRN #1 tablet 10/09/18 [Rx] Follow up Appointment(s)/Referral(s): Trevin Wylie PAC [PHYSICIAN CAPACITOR REPAIRER] - 2 Weeks (Patient may follow-up with Trevin Wylie PA-C or Dr. Cesar Gutierres at [facility] in 2-3 weeks following discharge. ) Adam Huntley DO [Primary Care Provider] - 1-2 days Patient Instructions/Handouts: Fall Prevention for Older Adults (ED), Back Pain (ED) Activity/Diet/Wound Care/Special Instructions: 1. Patient may wear Spinomed TLSO brace for comfort and support while sitting upright at greater than 45, while working with therapy, and while ambulating; patient does not have to wear the brace while lying in bed or bathing 2. Patient should avoid excessive bending, twisting, and lifting; no lifting greater than 10 pounds
[2018-10-09 11:27] LABS: Basophils % (A) 0 %; Eosinophils # (A) 0.4 k/uL (0-0.7); Eosinophils % (A) 4 %; HCT 32.4 % (34.0-46.0); HGB 10.8 gm/dL (11.4-16.0); Lymphocytes # (A) 0.9 k/uL (1.0-4.8); Lymphocytes % (A) 10 %; MCH 30.7 pg (25.0-35.0); MCHC 33.2 g/dL (31.0-37.0); MCV 92.4 fL (80.0-100.0); Mean Platelet Volume 7.5; Monocytes # (A) 0.6 k/uL (0-1.0); Monocytes % (A) 7 %; Neutrophils # (A) 6.8 k/uL (1.3-7.7); Neutrophils % (A) 77 %; Platelet Count 250 k/uL (150-450); RBC 3.51 m/uL (3.80-5.40); RDW 13.7 % (11.5-15.5); WBC 8.8 k/uL (3.8-10.6)
[2018-10-09 11:30] LABS: Anion Gap 5 mmol/L; Blood Urea Nitrogen 13 mg/dL (7-17); Calcium 8.9 mg/dL (8.4-10.2); Carbon Dioxide 32 mmol/L (22-30); Chloride 96 mmol/L (98-107); Glucose 150 mg/dL (74-99); Potassium 3.7 mmol/L (3.5-5.1); Sodium 133 mmol/L (137-145)
[2018-10-09] MEDS ORDERED: DOCUSATE 100 MG CAP PO SCH (11:30)
[2018-10-09] MEDS: ONDANSETRON ODT 4 MG TAB PO PRN (11:33)
[2018-10-09] MEDS: LISINOPRIL 10 MG TAB PO SCH (11:50)
[2018-10-09] MEDS: CLOPIDOGREL 75 MG TAB PO SCH (11:50)
[2018-10-09] MEDS: CHOLECALCIFEROL 1,000 UNIT TAB PO SCH (11:50)
[2018-10-09 12:09] LABS: Glucose,Whole Blood 156 mg/dL (75-99)
[2018-10-09] MEDS ORDERED: LACTULOSE 20 GM/30 ML CUP PO PRN (13:19)
[2018-10-09 13:52] VITALS: BP 172/92; PULSE 73; TEMP 97.6
== END 2018-10-09 15:04 | DRG 552 ==
LOC: EC 15:16 → 4MS4W 19:05 → OBSVTOIN 10-06 17:29
PROVIDERS: ADMIT Hospitalist; ATTEND Hospitalist
DX: S22.080A Wedge compression fracture of T11-T12 vertebra, initial encounter for closed fracture (principal); E87.1 Hypo-osmolality and hyponatremia; N39.0 Urinary tract infection, site not specified; I48.2 Chronic atrial fibrillation; G40.909 Epilepsy, unspecified, not intractable, without status epilepticus; D64.9 Anemia, unspecified; E11.9 Type 2 diabetes mellitus without complications; R26.9 Unspecified abnormalities of gait and mobility; G89.29 Other chronic pain; M46.96 Unspecified inflammatory spondylopathy, lumbar region; M48.061 Spinal stenosis, lumbar region without neurogenic claudication; K59.00 Constipation, unspecified; E87.6 Hypokalemia; M48.56XD Collapsed vertebra, not elsewhere classified, lumbar region, subsequent encounter for fracture with routine healing; W18.30XA Fall on same level, unspecified, initial encounter; Y92.481 Parking lot as the place of occurrence of the external cause; Z79.899 Other long term (current) drug therapy; Z79.02 Long term (current) use of antithrombotics/antiplatelets; Z79.84 Long term (current) use of oral hypoglycemic drugs; Z86.79 Personal history of other diseases of the circulatory system; Z98.51 Tubal ligation status; Z88.8 Allergy status to other drugs, medicaments and biological substances
CPT/HCPCS: 36415; 72131; 72192; 80048; 80053; 80177; 81001; 83605; 83735; 84100; 84484; 85025; 85610; 85652; 85730; 86140; 87040; 87086; 93005; 94760; 96361; 96374; 96375; 96376; 99285

== ENCOUNTER → 2019-02-08 | Outpatient (CLI) | payer MEDICARE, BC ==
--- NOTE | 2019-02-08 14:15 | FL ---
EXAMINATION TYPE: FL barium swallow w video DATE OF EXAM: 02/08/2019 MODIFIED SWALLOW / DEGLUTITION STUDY CLINICAL HISTORY: Dysphagia. TECHNIQUE: Deglutition study is performed utilizing thin liquid barium, honey and nectar thick liqui d barium, barium thick applesauce, and barium coated cracker. COMPARISON: None. FINDINGS: Fluoroscopy time was 30 seconds. 0 images were submitted. A number of thin and thick substa nces were ingested under the care of the Department of speech pathology. There is one episode of aspi ration along the posterior tracheal wall with thin liquids. No evidence of obstruction. No aspiration or penetration with remaining substances. IMPRESSION: 1 episode of aspiration with thin liquids. Please refer to speech therapist notes for fur ther details if necessary.
== END | disposition home or self-care (01) ==
LOC: RADFLMAIN 10:45
PROVIDERS: ATTEND Family Medicine
DX: R13.10 Dysphagia, unspecified (principal)
CPT/HCPCS: 74230

== ENCOUNTER 2019-03-02 12:39 | Emergency (ER) | payer MEDICARE, BC ==
[2019-03-02] MEDS ORDERED: SODIUM CHLORIDE 0.9% 1,000 ML IV STA (12:46)
--- NOTE | 2019-03-02 12:51 | ED ---
Neuro HPI - General Stated Complaint: Poss CVA Time Seen by Provider: 03/02/19 12:41 Source: RN notes reviewed, old records reviewed Limitations: altered mental status - History of Present Illness Is the patient presenting with stroke symptoms?: Yes Last Known Well Date: 03/02/19 Last Known Well Time: 12:00 -: minutes(s) (30) Initial Comments: This is an 84-year-old female the ER for evaluation of strokelike symptoms. Patient presents by EMS for one half hour of slurred speech and left-sided weakness. Medical history consists of atrial fibrillation on anticoagulation although at this time unknown medication. Patient's presented with a half-hour prior to arrival of left-sided weakness left arm weakness left leg weakness and slurred speech. Patient's brought in by EMS. Patient is able to give history family is on way. Patient has history of atrial fibrillation again anticoagulation and history of aneurysm, seizure disorder Location: speech, left arm, left leg, ataxia History of same: No Place: home Severity: moderate Quality: weak, numb Improves With: none Worsens With: none On Anticoagulants: Yes Associated Symptoms: confusion Treatments Prior to Arrival: none - Related Data Home Medications: Home Medications Medication Instructions Recorded Confirmed Carvedilol [Coreg] 6.25 mg PO BID 10/05/18 10/05/18 Cholecalciferol [Vitamin D3 (25 1,000 unit PO DAILY 10/05/18 10/05/18 Mcg = 1000 Iu)] Clopidogrel [Plavix] 75 mg PO DAILY@1200 10/05/18 10/05/18 Digestive Probiotic 1 tab PO DAILY 10/05/18 10/05/18 Lacosamide [Vimpat] 50 mg PO Q12H 10/05/18 10/05/18 Lovastatin [Mevacor] 20 mg PO HS 10/05/18 10/05/18 Metoclopramide [Reglan] 5 mg PO TID 10/05/18 10/05/18 Ondansetron [Zofran ODT] 4 mg PO TID PRN 10/05/18 10/05/18 Pantoprazole [Protonix] 40 mg PO DAILY 10/05/18 10/05/18 Quinapril HCl [Accupril] 10 mg PO DAILY@1200 10/05/18 10/05/18 guaiFENesin [Mucinex] 600 mg PO BID 10/05/18 10/05/18 levETIRAcetam [Keppra Oral 1,000 mg PO BID 10/05/18 10/05/18 Solution] metFORMIN HCL [Glucophage] 500 mg PO DAILY 10/05/18 10/05/18 Previous Rx's Medication Instructions Recorded Cefuroxime Axetil [Ceftin] 500 mg PO BID 3 Days #6 tab 10/09/18 Docusate [Colace] 100 mg PO BID #1 capsule 10/09/18 HYDROcodone/APAP 5-325MG [[place] 1 each PO Q6HR PRN #10 tab 10/09/18 5-325] Sennosides-Docusate Sodium 1 tab PO BID PRN #1 tablet 10/09/18 [Senokot-S] Allergies/Adverse Reactions: Allergies Allergy/AdvReac Type Severity Reaction Status Date / Time phenytoin [From Dilantin] Allergy Anaphylaxis Verified 10/05/18 16:24 Review of Systems ROS Statement: Those systems with pertinent positive or pertinent negative responses have been documented in the HPI. ROS Other: All systems not noted in ROS Statement are negative. General Exam General appearance: alert, lethargic, in distress Head exam: Present: atraumatic, normocephalic, normal inspection Eye exam: Present: normal appearance, PERRL, EOMI. Absent: scleral icterus, conjunctival injection, periorbital swelling ENT exam: Present: normal exam, mucous membranes moist Neck exam: Present: normal inspection. Absent: tenderness, meningismus, lymphadenopathy Respiratory exam: Present: normal lung sounds bilaterally. Absent: respiratory distress, wheezes, rales, rhonchi, stridor Cardiovascular Exam: Present: regular rate, normal rhythm, normal heart sounds. Absent: systolic murmur, diastolic murmur, rubs, gallop, clicks GI/Abdominal exam: Present: soft, normal bowel sounds. Absent: distended, tenderness, guarding, rebound, rigid Extremities exam: Present: normal inspection, full ROM, normal capillary refill. Absent: tenderness, pedal edema, joint swelling, calf tenderness Back exam: Present: normal inspection Neurological exam: Present: alert, oriented X3, CN II-XII intact Psychiatric exam: Present: normal affect, normal mood Skin exam: Present: warm, dry, intact, normal color. Absent: rash Stroke MDM - Lab Data Result diagrams: 03/02/19 12:56 Lab Results 03/02/19 Range/Units 12:56 WBC 6.3 (3.8-10.6) k/uL RBC 3.23 L (3.80-5.40) m/uL Hgb 9.7 L (11.4-16.0) gm/dL Hct 29.9 L (34.0-46.0) % MCV 92.5 (80.0-100.0) fL MCH 30.2 (25.0-35.0) pg MCHC 32.6 (31.0-37.0) g/dL RDW 14.8 (11.5-15.5) % Plt Count 210 (150-450) k/uL Neutrophils % 80 % Lymphocytes % 11 % Monocytes % 6 % Eosinophils % 1 % Basophils % 1 % Neutrophils # 5.1 (1.3-7.7) k/uL Lymphocytes # 0.7 L (1.0-4.8) k/uL Monocytes # 0.4 (0-1.0) k/uL Eosinophils # 0.1 (0-0.7) k/uL Basophils # 0.0 (0-0.2) k/uL - NIH Stroke Scale 1a. Level of Consciousness: (0) alert 1b. LOC Questions: (1) answers 1 question correctly 1c. LOC Commands: (0) performs tasks correctly 2. Best Gaze: (0) normal 3. Visual: (0) no visual loss 4. Facial Palsy: (0) normal symmetrical movement 5a. Motor Arm Left: (2) some gravity effort 5b. Motor Arm Right: (0) no drift 6a. Motor Leg Left: (1) drift 6b. Motor Leg Right: (0) no drift 7. Limb Ataxia: (0) absent 8. Sensory: (0) normal 9. Best Language: (1) mild/moderate aphasia 10. Dysarthria: (1) mild/moderate dysarthria 11. Extinction/Inattention: (0) no abnormality - Thrombolytic Inclusion/Exclusion Thrombolytic Inclusion Criteria: Ischemic Stroke Onset< 3h, NIH Stroke Scale Deficit (6) Thrombolytic Contraindications: Patient on Anticoagulants (per report patient on anticoagulation secondary to atrial fibrillation unknown medication) - Medical Decision Making 84 female the ER for evaluation presents today for evaluation regards to CVA symptoms. Third speech left-sided weakness. Symptoms are persistent with an NIH of 6, patient be transferred for neuro intervention evaluation and care, Yarelis Rowe - Radiology Data Radiology results: report reviewed (CT brain and CTA is positive for embolic CVA), image reviewed - EKG Data -: EKG Interpreted by Me (EKG shows a flutter rate of 98, QRS 84, QTc 472) Past Medical History Past Medical History: Atrial Fibrillation, Diabetes Mellitus, Seizure Disorder Additional Past Medical History / Comment(s): brain aneurysm that caused seizure History of Any Multi-Drug Resistant Organisms: None Reported Past Surgical History: Tubal Ligation Additional Past Surgical History / Comment(s): aneursym sx. Past Anesthesia/Blood Transfusion Reactions: No Reported Reaction Past Psychological History: No Psychological Hx Reported Smoking Status: Never smoker Past Alcohol Use History: None Reported Past Drug Use History: None Reported - Past Family History Daughter(s) Additional Family Medical History / Comment(s): arthritis Course Vital Signs 03/02/19 13:00 Temperature 97.6 F Pulse Rate 91 Respiratory 18 Rate Blood Pressure 183/102 O2 Sat by Pulse 95 Oximetry - Reevaluation(s) Reevaluation #1: 03/02/19 13:11 Medical record is reviewed Reevaluation #2: 03/02/19 13:11 Spoke with no intervention, after code stroke was paged. He did evaluate CT angiogram states patient is candidate for neuro intervention secondary to embolus Reevaluation #3: 03/02/19 13:12 Patient has no change in symptoms Reevaluation #4: 03/02/19 13:12 Spoke with patient, family at length, questions answered Reevaluation #5: 03/02/19 13:16 Patient's medication list is noted at this time, we did report that she is on anticoagulation secondary to atrial fibrillation but no no medication Will include blood pressure control 03/02/19 13:32 Patient again reevaluated, patient's stroke symptoms are improving left-sided weakness leg weakness and slurred speech are improving 03/02/19 13:36 No TPA secondary to improving of stroke symptoms NIH is now 4 Critical Care Time Critical Care Time: Yes Total Critical Care Time: 31 Disposition Clinical Impression: Cerebrovascular accident Disposition: OTHER INSTITUTION NOT DEFINED Condition: Serious Is patient prescribed a controlled substance at d/c from ED?: No Referrals: Adam Huntley DO [Primary Care Provider] - 1-2 days - Out of Hospital Transfer - Req. Specs Out of Hospital Transfer - Requested Specifics: Other Emergency Center ([facility])
[2019-03-02 13:01] VITALS: TEMP 97.6
--- NOTE | 2019-03-02 13:05 | CT ---
EXAMINATION TYPE: CT brain wo con DATE OF EXAM: 03/02/2019 COMPARISON: None HISTORY: 84-year-old female Left sided weakness. TECHNIQUE: Examination was done in axial plane without intravenous contrast. Coronal and sagittal r econstructions performed. CT DLP: 1065 mGycm Automated exposure control for dose reduction was used. FINDINGS: There is no evidence of acute intracranial hemorrhage, acute ischemic changes, mass, mass-effect, or extra-axial fluid collection. There is no effacement of cerebral sulci or basal subarachnoid cister ns. There is no hydrocephalus. There is no midline shift. Lucero-white matter distinction is preserv ed. Previous right perimedian frontal craniotomy flap with underlying encephalomalacia anterior right fro ntal lobe. Additional small area of encephalomalacia more superiorly within the right frontal lobe. M ild ventricular prominence likely secondary to central cerebral atrophy. Surgical clips noted along the right horizontal fissure and also along the anterior inferior midline. Metal hardware artifact from these lips limited assessment. Complete opacification of the surgery and right frontal sinus. Additional opacification within the ri ght mastoid air cells and middle ear cavity. Moderate mucosal thickening right maxillary sinus. IMPRESSION: 1. Prior anterior right frontal craniotomy flap and underlying extensive encephalomalacia of the righ t frontal lobe. Second smaller area of encephalomalacia more superiorly within the right frontal lobe . 2. Mild generalized atrophy. Prior surgical clips along the right horizontal fissure and along the an terior inferior midline with metal artifact limiting assessment. 3. No definite acute intracranial abnormality seen allowing for these limitations. 4. Correlate for right-sided otomastoiditis given complete opacification. 5. Chronic right frontal and right maxillary sinus disease.
[2019-03-02] MEDS ORDERED: LABETALOL 5 MG/ML VIAL MDV IVP STA (13:17)
[2019-03-02] MEDS ORDERED: ALTEPLASE IV STA (13:23)
[2019-03-02] MEDS ORDERED: ALTEPLASE BOLUS 4 MG in EMPTY SYRINGE 1 SYR IV STA (13:23)
[2019-03-02] MEDS ORDERED: ENALAPRILAT 1.25 MG/ML 1 ML VIAL IVP STA (13:31)
[2019-03-02 13:35] LABS: Basophils % (A) 1 %; Eosinophils # (A) 0.1 k/uL (0-0.7); Eosinophils % (A) 1 %; HCT 29.9 % (34.0-46.0); HGB 9.7 gm/dL (11.4-16.0); Lymphocytes # (A) 0.7 k/uL (1.0-4.8); Lymphocytes % (A) 11 %; MCH 30.2 pg (25.0-35.0); MCHC 32.6 g/dL (31.0-37.0); MCV 92.5 fL (80.0-100.0); Mean Platelet Volume 7.9; Monocytes # (A) 0.4 k/uL (0-1.0); Monocytes % (A) 6 %; Neutrophils # (A) 5.1 k/uL (1.3-7.7); Neutrophils % (A) 80 %; Platelet Count 210 k/uL (150-450); RBC 3.23 m/uL (3.80-5.40); RDW 14.8 % (11.5-15.5); WBC 6.3 k/uL (3.8-10.6)
--- NOTE | 2019-03-02 13:41 | CT ---
EXAMINATION TYPE: CT angio head neck DATE OF EXAM: 03/02/2019 COMPARISON: CT chest 09/30/2018 HISTORY: 84-year-old female Left sided weakness. TECHNIQUE: Contiguous axial scanning of the head and neck performed with IV Contrast, patient injecte d with 50 mL of Isovue 370. Coronal/sagittal MIP reconstructions performed. 3-D reconstructions gener ated on a dedicated independent workstation. CT DLP: 319.5 mGycm Automated exposure control for dose reduction was used. FINDINGS: NECK: Moderate atherosclerotic arch calcifications. Mediastinal lymph nodes measure up to 9 mm in the super ior mediastinum. Thickened biapical pleural-parenchymal scarring. New patchy groundglass and septal thickening and int erstitial fibrotic changes in the periphery of the lungs. The groundglass changes are new. Mild to moderate atherosclerotic arch calcifications. Conventional arch vessel branching anatomy. The left vertebral artery is dominant. Mild to moderate atherosclerotic calcifications at the origin of the nondominant right vertebral artery. Mild atherosclerotic calcifications V1 segment left verteb ral artery. Moderate atherosclerotic calcifications V3/V4 segment left vertebral artery. Right common carotid artery is patent. There is moderate atherosclerotic calcification at the right carotid bifurcation resulting in moderat e, 60% proximal ICA narrowing. Second area of mild, approximately 40% narrowing proximal ICA just bey ond the carotid bulb. Left common carotid artery is patent. Mild to moderate atherosclerotic change at the left carotid bifurcation with a mild, approximately 30 % proximal ICA stenosis. Remainder of the left ICA is patent. HEAD: Moderate atherosclerotic narrowing V3/V4 junction left vertebral artery. Nondominant right vertebral artery redemonstrated. The basilar artery is patent. There appears to be persistent origin left posterior cerebral artery. Moderate atherosclerotic narrowing within the carotid siphons, more moderate to severe along the righ t supraclinoid ICA. Aneurysm clip at the distal M1 segment right MCA with metal hardware artifact.. Mild atherosclerotic narrowing proximal A1 and M1 segments left DEL and MCA, respectively. Another aneurysm clip anterior-inferior aspect of the A2 segment. No convincing aneurysmal change seen. IMPRESSION: NECK: 1. ATHEROSCLEROTIC CHANGE AT THE BILATERAL bifurcations with a moderate, approximately 60% proximal r ight ICA stenosis. Second area of mild, 40% stenosis proximal right ICA just beyond the carotid bulb secondary to noncalcified plaque. 2. Mild, 30% proximal left ICA stenosis. 3. Dominant left vertebral artery.. Mild to moderate atherosclerotic narrowing at the origin of the n ondominant right vertebral artery and moderate atelectatic calcifications at the v3/v4 segment left v ertebral artery. 4. UIP/IPF changes but with new groundglass densities. Correlate for superimposed pulmonary edema, at ypical infections, or acute exacerbation of UIP. HEAD: 1. Moderate atherosclerotic changes in the bilateral carotid siphons with more moderate to severe ath erosclerotic narrowing along the supraclinoid right ICA. 2. Aneurysm clips distal M1 segment right MCA and along the anterior inferior aspect of the A2 segmen t of the DEL. This causes metal hardware artifact and limits the evaluation. 3. Nondominant right vertebral artery. Otherwise, no large vessel intracranial arterial occlusion or convincing aneurysmal change seen.
[2019-03-02 13:43] LABS: Albumin 3.2 g/dL (3.5-5.0); Calcium 8.3 mg/dL (8.4-10.2); Potassium 3.9 mmol/L (3.5-5.1); Total Bilirubin 1.1 mg/dL (0.2-1.3); Total Protein 6.4 g/dL (6.3-8.2)
[2019-03-02 13:48] LABS: INR 1.1 (<1.2); Partial Thromboplastin Time 25.3 sec (22.0-30.0); Prothrombin Time 11.7 sec (9.0-12.0)
[2019-03-02 14:12] VITALS: BP 175/106; PULSE 99; RESP 24
== END 2019-03-02 14:05 | disposition other institution (70) ==
LOC: EC 12:39
DX: I63.9 Cerebral infarction, unspecified (principal); R29.706 NIHSS score 6; I48.91 Unspecified atrial fibrillation; E11.9 Type 2 diabetes mellitus without complications; G40.909 Epilepsy, unspecified, not intractable, without status epilepticus; Z79.01 Long term (current) use of anticoagulants; Z79.02 Long term (current) use of antithrombotics/antiplatelets; Z79.84 Long term (current) use of oral hypoglycemic drugs; Z79.899 Other long term (current) drug therapy; Z88.8 Allergy status to other drugs, medicaments and biological substances
CPT/HCPCS: 36415; 80053; 82550; 84484; 85025; 85610; 85730; 70496; 70450; 70498; 99291; 96374; 96375; 96361; Q9967

== ENCOUNTER → 2019-03-29 | Outpatient (CLI) | payer MEDICARE, BC ==
--- NOTE | 2019-03-30 07:51 | XR ---
EXAM TYPE: LUMBAR SPINE X RAY SERIES COMPARISON: 10/05/2018 HISTORY: Pain TECHNIQUE: 4 views are submitted. FINDINGS: There is progression of a compression fracture of T12 which now demonstrates a complete compression f racture. Superior endplate deformity of L3 is mildly progressed from the prior exam and there is a stable appe aring compression fracture of L5. There is diffuse osteopenia and multilevel hypertrophic and degenerative disc disease and facet arthr opathy. Vascular calcifications are noted. Curvature the spine noted and is arthropathy of the SI geovany nts. IMPRESSION: 1. There is acute interval progression of a compression fracture of T12 which now appears compatible with a severe complete compression fracture with retropulsion. Recommend follow-up CT scan. 2. Mild compression of a superior endplate compression fracture L3. 3. Stable compression fracture L5 appears chronic. 4. Multilevel degenerative disc disease and hypertrophic changes. A [place] level critical message alert has been initiated for MAYA Oliveros via the [employer] Critical Results System on 03/30/2019 7:48 AM. This message alert has been sent to MAYA Oliveros via the preferences provided by the clinician for the receipt of Radiology Critical Fin elly. Message ID [id number].
== END | disposition home or self-care (01) ==
LOC: RADXRYALE 16:23
PROVIDERS: ATTEND Physician Assistant Medical
DX: M51.36 Other intervertebral disc degeneration, lumbar region (principal); M48.56XA Collapsed vertebra, not elsewhere classified, lumbar region, initial encounter for fracture
CPT/HCPCS: 72110

== ENCOUNTER 2019-04-01 13:20 | Inpatient (IN) | payer MEDICARE, BC ==
[2019-04-01] MEDS ORDERED: ONDANSETRON 4 MG/2 ML VIAL IVP STA (14:12)
[2019-04-01] MEDS ORDERED: SODIUM CHLORIDE 0.9% 1,000 ML IV STA (14:12)
[2019-04-01 14:22] LABS: Basophils # (A) 0.1 k/uL (0-0.2); Basophils % (A) 1 %; Eosinophils % (A) 1 %; HCT 30.9 % (34.0-46.0); HGB 9.9 gm/dL (11.4-16.0); Lymphocytes # (A) 0.4 k/uL (1.0-4.8); Lymphocytes % (A) 6 %; MCH 29.8 pg (25.0-35.0); MCHC 31.9 g/dL (31.0-37.0); MCV 93.3 fL (80.0-100.0); Mean Platelet Volume 7.2; Monocytes # (A) 0.5 k/uL (0-1.0); Monocytes % (A) 7 %; Neutrophils # (A) 6.3 k/uL (1.3-7.7); Neutrophils % (A) 84 %; Platelet Count 199 k/uL (150-450); RBC 3.32 m/uL (3.80-5.40); RDW 14.4 % (11.5-15.5); WBC 7.5 k/uL (3.8-10.6)
[2019-04-01 14:31] LABS: INR 1.2 (<1.2); Partial Thromboplastin Time 31.5 sec (22.0-30.0); Prothrombin Time 12.1 sec (9.0-12.0)
[2019-04-01 14:34] LABS: Ionized Calcium 3.9 mg/dL (4.5-5.3)
[2019-04-01 14:42] LABS: Calcium 7.9 mg/dL (8.4-10.2); Total Bilirubin 0.9 mg/dL (0.2-1.3); Total Protein 7.1 g/dL (6.3-8.2)
--- NOTE | 2019-04-01 14:42 | ED ---
General Adult HPI - General Chief complaint: Weakness Stated complaint: Weakness, anxiety Time Seen by Provider: 04/01/19 13:36 Source: patient, family Mode of arrival: wheelchair Limitations: no limitations - History of Present Illness Initial comments: Dictation was produced using Snapt dictation software. please excuse any grammatical, word or spelling errors. Chief Complaint: 84-year-old with 2 days of nausea, vomiting and dizziness. History of Present Illness: His 84-year-old female she presents today for 2 days of symptoms. Patient states she has an abnormal sensation where she feels that she is celebrating forward and backward. Patient has had symptoms like this in the past. She denies any pain complaints. States that she feels when she had the symptoms she becomes nauseated and has episodes of emesis. Patient denies any weakness. She has history of CVA with left-sided upper extremity weakness. Family bedside and reports that they were concerned about her to the emergency department. The ROS documented in this emergency department record has been reviewed and confirmed by me. Those systems with pertinent positive or negative responses have been documented in the HPI. All other systems are other negative and/or noncontributory. PHYSICAL EXAM: General Impression: Alert and oriented x3, not in acute distress HEENT: Normocephalic atraumatic, extra-ocular movements intact, pupils equal and reactive to light bilaterally, dry mucous members Cardiovascular: Heart regular rate and rhythm, S1&S2 audible, no murmurs, rubs or gallops Chest: Lungs clear to auscultation bilaterally, no rhonchi, no wheeze, no rales Abdomen: Bowel sounds present, abdomen soft, mild epigastric tenderness, non- distended, no organomegaly Musculoskeletal: Pulses present and equal in all extremities, no peripheral edema Motor: no focal deficits noted Neurological: CN II-XII grossly intact, no focal motor or sensory deficits noted Skin: Intact with no visualized rashes Psych: Normal affect and mood ED course: 84 presents with vertiginous symptoms and nausea and vomiting. Vital signs upon arrival are within acceptable limits. Patient states her symptoms are paroxysmal. She denies that they're continuous. She does have a history of stroke. Patient is atrial flutter on her EKG however it is apparent and on previous EKGs from last month. Medications are reviewed. She is not on any anticoagulation medications. She is on seizure medications. 4 history of seizures from brain aneurysm. Lab evaluation obtained. CBC unremarkable. Coag panel is negative. Patient has sodium of 1:30 with magnesium that critically low at 0.8. Patient is a slight 1 elevation of 0.027. Urinalysis shows 7 white blood cells but 13 squamous epithelial cells. Urinalysis will be reflex for culture. Chest x-ray shows no acute processes. Discussed patient case with Dr. Perdue has not. Patient has critically low magnesium. Patient admitted for medical monitoring and parenteral magnesium. EKG interpretation: Ventricular rate 65, atrial flutter, QRS 92, QTC 482. No OR prolongation, no QTC prolongation, no ST or T-wave changes noted. EKG compared to centimeter 2018 showing no changes. Overall, this EKG is unremarkable - Related Data Home Medications Medication Instructions Recorded Confirmed Carvedilol [Coreg] 6.25 mg PO BID 10/05/18 04/01/19 Cholecalciferol [Vitamin D3 (25 1,000 unit PO DAILY 10/05/18 04/01/19 Mcg = 1000 Iu)] Lacosamide [Vimpat] 50 mg PO Q12H 10/05/18 04/01/19 Ondansetron [Zofran ODT] 4 mg PO TID PRN 10/05/18 04/01/19 Pantoprazole [Protonix] 40 mg PO DAILY 10/05/18 04/01/19 levETIRAcetam [Keppra Oral 1,000 mg PO BID 10/05/18 04/01/19 Solution] metFORMIN HCL [Glucophage] 500 mg PO BID 10/05/18 04/01/19 HYDROcodone/APAP 7.5-325MG [[place] 1 tab PO Q6H PRN 03/02/19 04/01/19 7.5-325] Lisinopril [Zestril] 20 mg PO BID 03/02/19 04/01/19 Amiodarone [Cordarone] 200 mg PO BID 04/01/19 04/01/19 Apixaban [Eliquis] 2.5 mg PO DAILY 04/01/19 04/01/19 Atorvastatin [Lipitor] 20 mg PO DAILY 04/01/19 04/01/19 Lactobacillus Acidophilus 1 tab PO DAILY 10/03/19 10/03/19 [Acidophilus] Lactulose 10 gm PO DAILY 04/01/19 04/01/19 Nitroglycerin Sl Tabs [Nitrostat] 0.4 mg SUBLINGUAL Q5M PRN 04/01/19 04/01/19 amLODIPine [Norvasc] 2.5 mg PO DAILY 04/01/19 04/01/19 Allergies Allergy/AdvReac Type Severity Reaction Status Date / Time phenytoin [From Dilantin] Allergy Anaphylaxis Verified 04/01/19 14:06 Review of Systems ROS Statement: Those systems with pertinent positive or pertinent negative responses have been documented in the HPI. ROS Other: All systems not noted in ROS Statement are negative. 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 Past Anesthesia/Blood Transfusion Reactions: No Reported Reaction Past Psychological History: No Psychological Hx Reported Smoking Status: Never smoker Past Alcohol Use History: None Reported Past Drug Use History: None Reported - Past Family History Daughter(s) Additional Family Medical History / Comment(s): arthritis General Exam Limitations: no limitations Course Vital Signs 04/01/19 04/01/19 13:23 16:25 Temperature 97.4 F L 97.3 F L Pulse Rate 73 63 Respiratory 22 16 Rate Blood Pressure 152/92 157/73 O2 Sat by Pulse 96 97 Oximetry Medical Decision Making - Lab Data Result diagrams: 04/01/19 14:00 04/01/19 14:00 Lab Results 04/01/19 04/01/19 04/01/19 Range/Units 14:00 14:00 14:00 WBC 7.5 (3.8-10.6) k/uL RBC 3.32 L (3.80-5.40) m/uL Hgb 9.9 L (11.4-16.0) gm/dL Hct 30.9 L (34.0-46.0) % MCV 93.3 (80.0-100.0) fL MCH 29.8 (25.0-35.0) pg MCHC 31.9 (31.0-37.0) g/dL RDW 14.4 (11.5-15.5) % Plt Count 199 (150-450) k/uL Neutrophils % 84 % Lymphocytes % 6 % Monocytes % 7 % Eosinophils % 1 % Basophils % 1 % Neutrophils # 6.3 (1.3-7.7) k/uL Lymphocytes # 0.4 L (1.0-4.8) k/uL Monocytes # 0.5 (0-1.0) k/uL Eosinophils # 0.0 (0-0.7) k/uL Basophils # 0.1 (0-0.2) k/uL PT (9.0-12.0) sec INR (<1.2) APTT (22.0-30.0) sec Sodium 130 L (137-145) mmol/L Potassium 4.3 (3.5-5.1) mmol/L Chloride 91 L (98-107) mmol/L Carbon Dioxide 28 (22-30) mmol/L Anion Gap 11 mmol/L BUN 24 H (7-17) mg/dL Creatinine 0.87 (0.52-1.04) mg/dL Est GFR (CKD-EPI)AfAm 70 (>60 ml/min/1.73 sqM) Est GFR (CKD-EPI)NonAf 61 (>60 ml/min/1.73 sqM) Glucose 109 H (74-99) mg/dL Plasma Lactic Acid Babak 1.3 (0.7-2.0) mmol/L Calcium 7.9 L (8.4-10.2) mg/dL Ionized Calcium Malik 3.9 L (4.5-5.3) mg/dL Magnesium 0.8 L* (1.6-2.3) mg/dL Total Bilirubin 0.9 (0.2-1.3) mg/dL AST 33 (14-36) U/L ALT 23 (9-52) U/L Alkaline Phosphatase 78 (38-126) U/L Troponin I (0.000-0.034) ng/mL Total Protein 7.1 (6.3-8.2) g/dL Albumin 3.7 (3.5-5.0) g/dL Urine Color Urine Appearance (Clear) Urine pH (5.0-8.0) Ur Specific [place] (1.001-1.035) Urine Protein (Negative) Urine Glucose (UA) (Negative) Urine Ketones (Negative) Urine Blood (Negative) Urine Nitrite (Negative) Urine Bilirubin (Negative) Urine Urobilinogen (<2.0) mg/dL Ur Leukocyte Esterase (Negative) Urine RBC (0-5) /hpf Urine WBC (0-5) /hpf Ur Squamous Epith Cells (0-4) /hpf Amorphous Sediment (None) /hpf Urine Bacteria (None) /hpf Hyaline Casts (0-2) /lpf Urine Mucus (None) /hpf 04/01/19 04/01/19 04/01/19 Range/Units 14:00 14:00 14:50 WBC (3.8-10.6) k/uL RBC (3.80-5.40) m/uL Hgb (11.4-16.0) gm/dL Hct (34.0-46.0) % MCV (80.0-100.0) fL MCH (25.0-35.0) pg MCHC (31.0-37.0) g/dL RDW (11.5-15.5) % Plt Count (150-450) k/uL Neutrophils % % Lymphocytes % % Monocytes % % Eosinophils % % Basophils % % Neutrophils # (1.3-7.7) k/uL Lymphocytes # (1.0-4.8) k/uL Monocytes # (0-1.0) k/uL Eosinophils # (0-0.7) k/uL Basophils # (0-0.2) k/uL PT 12.1 H (9.0-12.0) sec INR 1.2 H (<1.2) APTT 31.5 H (22.0-30.0) sec Sodium (137-145) mmol/L Potassium (3.5-5.1) mmol/L Chloride (98-107) mmol/L Carbon Dioxide (22-30) mmol/L Anion Gap mmol/L BUN (7-17) mg/dL Creatinine (0.52-1.04) mg/dL Est GFR (CKD-EPI)AfAm (>60 ml/min/1.73 sqM) Est GFR (CKD-EPI)NonAf (>60 ml/min/1.73 sqM) Glucose (74-99) mg/dL Plasma Lactic Acid Babak (0.7-2.0) mmol/L Calcium (8.4-10.2) mg/dL Ionized Calcium Malik (4.5-5.3) mg/dL Magnesium (1.6-2.3) mg/dL Total Bilirubin (0.2-1.3) mg/dL AST (14-36) U/L ALT (9-52) U/L Alkaline Phosphatase (38-126) U/L Troponin I 0.027 (0.000-0.034) ng/mL Total Protein (6.3-8.2) g/dL Albumin (3.5-5.0) g/dL Urine Color Yellow Urine Appearance Cloudy H (Clear) Urine pH 5.5 (5.0-8.0) Ur Specific [place] 1.019 (1.001-1.035) Urine Protein 1+ H (Negative) Urine Glucose (UA) Negative (Negative) Urine Ketones Negative (Negative) Urine Blood Small H (Negative) Urine Nitrite Negative (Negative) Urine Bilirubin Negative (Negative) Urine Urobilinogen 2.0 (<2.0) mg/dL Ur Leukocyte Esterase Trace H (Negative) Urine RBC 2 (0-5) /hpf Urine WBC 7 H (0-5) /hpf Ur Squamous Epith Cells 13 H (0-4) /hpf Amorphous Sediment Occasional H (None) /hpf Urine Bacteria Many H (None) /hpf Hyaline Casts 50 H (0-2) /lpf Urine Mucus Rare H (None) /hpf Disposition Clinical Impression: Hypomagnesemia Disposition: ADMITTED IP TO THIS [facility] Condition: Fair Is patient prescribed a controlled substance at d/c from ED?: No Referrals: Adam Huntley DO [Primary Care Provider] - 1-2 days Decision Time: 16:52
[2019-04-01 14:45] LABS: Potassium 4.3 mmol/L (3.5-5.1)
--- NOTE | 2019-04-01 15:02 | XR ---
EXAMINATION TYPE: XR chest 2V DATE OF EXAM: 04/01/2019 COMPARISON: 03/16/2018 TECHNIQUE: PA and lateral views submitted. HISTORY: Weakness FINDINGS: Coarsened interstitium is noted with no pleural effusion or pneumothorax. Biapical pleural thickening . Diffuse osteopenia. Hypertrophic and degenerative change of the spine. Complete compression deformi ty at the thoracolumbar junction is noted. Atherosclerotic change aorta. IMPRESSION: 1. Correlate for pulmonary fibrosis. Underlying superimposed interstitial pneumonitis or venous conge stion not entirely excluded. 2. Complete compression fracture thoracolumbar junction.
[2019-04-01 15:11] LABS: Albumin 3.7 g/dL (3.5-5.0)
[2019-04-01 15:14] LABS: Amorphous Sediment,Urine Occasional /hpf; Appearance,Urine Cloudy (Clear); Bacteria,Urine Many /hpf; Bilirubin,Urine Negative (Negative); Blood,Urine Small (Negative); Color,Urine Yellow; Glucose,Urine (UA) Negative (Negative); Hyaline Casts,Urine 50 /lpf (0-2); Ketones,Urine Negative (Negative); Leukocyte Esterase,Urine Trace (Negative); Mucus,Urine Rare /hpf; Nitrite,Urine Negative (Negative); PH, Urine 5.5 (5.0-8.0); Protein,Urine 1+ (Negative); RBC,Urine 2 /hpf (0-5); Specific Gravity,Urine 1.019 (1.001-1.035); Squamous Epithelial Cell,Urine 13 /hpf (0-4); WBC,Urine 7 /hpf (0-5)
[2019-04-01 15:23] LABS: Magnesium 0.8 mg/dL (1.6-2.3)
[2019-04-01] MEDS ORDERED: NALOXONE 0.4 MG/ML 1 ML VIAL IV PRN (16:53)
[2019-04-01] MEDS: MAGNESIUM SULFATE-D5W PMX 1 GM in DEXTROSE/WATER 1 100ML.BAG IVPB SCH ×3 (17:16→23:08)
[2019-04-01] MEDS: SODIUM CHLORIDE 0.9% 1,000 ML IV SCH (17:17)
[2019-04-01 21:02] VITALS: BMI 17.5
[2019-04-01] MEDS: HYDROcodone/APAP 7.5-325MG 1 EACH TAB PO PRN (23:06)
[2019-04-02] MEDS: LIDOCAINE 5% PATCH TOPICAL SCH ×2 (00:27→09:18)
[2019-04-02] MEDS: MAGNESIUM SULFATE-D5W PMX 1 GM in DEXTROSE/WATER 1 100ML.BAG IVPB SCH ×2 (00:28→01:41)
[2019-04-02] MEDS: SODIUM CHLORIDE 0.9% 1,000 ML IV SCH (03:12)
[2019-04-02] MEDS: HYDROcodone/APAP 7.5-325MG 1 EACH TAB PO PRN ×2 (05:45→19:54)
[2019-04-02 06:19] LABS: Glucose,Whole Blood 102 mg/dL (75-99)
[2019-04-02] MEDS ORDERED: NITROGLYCERIN SL TABS 0.4 MG TAB SUBLINGUAL PRN (08:17)
[2019-04-02] MEDS: AMIODARONE 200 MG TAB PO SCH ×2 (09:17→19:53)
[2019-04-02] MEDS: CHOLECALCIFEROL 1,000 UNIT TAB PO SCH (09:18)
[2019-04-02] MEDS: LACOSAMIDE 50 MG TABLET PO SCH ×2 (09:18→19:53)
[2019-04-02] MEDS: amLODIPine 2.5 MG TAB PO SCH (09:18)
[2019-04-02] MEDS: APIXABAN 2.5 MG TABLET PO SCH (09:18)
[2019-04-02] MEDS: CARVEDILOL 6.25 MG TAB PO SCH ×2 (10:05→17:19)
[2019-04-02] MEDS: levETIRAcetam ORAL SOLN 500 MG/5 ML CUP PO SCH ×2 (10:05→19:53)
[2019-04-02] MEDS: LISINOPRIL 20 MG TAB PO SCH ×2 (10:06→19:53)
[2019-04-02] MEDS: PANTOPRAZOLE 40 MG TABLET PO SCH (10:06)
[2019-04-02] MEDS ORDERED: POLYETHYLENE GLYCOL 3350 17 GM POWD.PACK PO PRN (10:26)
--- NOTE | 2019-04-02 11:13 | P.HPIM ---
History of Present Illness 83-year-old the pleasant female came in with abnormal sensation in both feet denied any weakness does have chronic back pain may be contributing to her that tingling and numbness in both legs. Patient was evaluated by spinal surgeon here. Patient's and incidentally is found to have hypomagnesemia patient is a very thin built cachectic prior looking 84-year-old female. Patient denied dysuria patient occasionally gets constipated because of the opiates she is taking for back pain patient has been on these opiates for long time. Patient has been nauseated and had a few episodes of emesis as today even today she had an episode of emesis. Patient is on Protonix at this time and patient will be discharged on Zantac patient's saturations have gone down today patient does have diffuse crackles may be chronic from her pulmonary fibrosis which is evident on the chest x-ray. Because of fighting decreased saturations and had a gym concern about pulmonary edema from some amount of diastolic dysfunction which is expected in most patients of her age I'll repeat the chest x-ray doesn't show any pulmonary edema and if her Nausea improves and if she is able to tolerate the diet and if her hyponatremia and improves with the repeat testing patient probably can be discharged as requested by the patient. Her back pain is better now. Her magnesium was corrected it was 0.9 yesterday and presently 2.3. Review of Systems REVIEW OF SYSTEMS: CONSTITUTIONAL: No fever, no malaise, no fatigue. HEENT: No recent visual problems or hearing problems. Denied any sore throat. CARDIOVASCULAR: No chest pain, orthopnea, PND, no palpitations, no syncope. PULMONARY: No shortness of breath, no cough, no hemoptysis. GASTROINTESTINAL: No diarrhea, no nausea, no vomiting, no abdominal pain. NEUROLOGICAL: No headaches, no weakness, HEMATOLOGICAL: Denies any bleeding or petechiae. GENITOURINARY: Denies any burning micturition, frequency, or urgency. MUSCULOSKELETAL/RHEUMATOLOGICAL: Denies any joint pain, swelling, or any muscle pain. ENDOCRINE: Denies any polyuria or polydipsia. The rest of the 14-point review of systems is negative. 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 Past Anesthesia/Blood Transfusion Reactions: No Reported Reaction Past Psychological History: No Psychological Hx Reported Smoking Status: Never smoker Past Alcohol Use History: None Reported Past Drug Use History: None Reported - Past Family History Daughter(s) Additional Family Medical History / Comment(s): arthritis Medications and Allergies Home Medications Medication Instructions Recorded Confirmed Type Carvedilol [Coreg] 6.25 mg PO BID 10/05/18 04/01/19 History Cholecalciferol [Vitamin D3 (25 1,000 unit PO DAILY 10/05/18 04/01/19 History Mcg = 1000 Iu)] Lacosamide [Vimpat] 50 mg PO Q12H 10/05/18 04/01/19 History Ondansetron [Zofran ODT] 4 mg PO TID PRN 10/05/18 04/01/19 History Pantoprazole [Protonix] 40 mg PO DAILY 10/05/18 04/01/19 History levETIRAcetam [Keppra Oral 1,000 mg PO BID 10/05/18 04/01/19 History Solution] metFORMIN HCL [Glucophage] 500 mg PO BID 10/05/18 04/01/19 History HYDROcodone/APAP 7.5-325MG [[place] 1 tab PO Q6H PRN 03/02/19 04/01/19 History 7.5-325] Lisinopril [Zestril] 20 mg PO BID 03/02/19 04/01/19 History Amiodarone [Cordarone] 200 mg PO BID 04/01/19 04/01/19 History Apixaban [Eliquis] 2.5 mg PO DAILY 04/01/19 04/01/19 History Atorvastatin [Lipitor] 20 mg PO DAILY 04/01/19 04/01/19 History Lactobacillus Acidophilus 1 tab PO DAILY 04/01/19 04/01/19 History [Acidophilus] Lactulose 10 gm PO DAILY 04/01/19 04/01/19 History Nitroglycerin Sl Tabs [Nitrostat] 0.4 mg SUBLINGUAL Q5M PRN 04/01/19 04/01/19 History amLODIPine [Norvasc] 2.5 mg PO DAILY 04/01/19 04/01/19 History Allergies Allergy/AdvReac Type Severity Reaction Status Date / Time phenytoin [From Dilantin] Allergy Anaphylaxis Verified 04/01/19 14:06 Physical Exam Vitals: Vital Signs Temp Pulse Pulse Resp BP BP Pulse Ox 04/02/19 10:05 187/86 04/02/19 08:12 97.4 F L 04/02/19 08:00 90 18 203/95 91 L 04/02/19 04:00 98 F 75 18 155/72 96 04/02/19 03:09 65 04/01/19 23:35 65 18 185/79 96 04/01/19 19:36 98 F 61 18 147/67 95 04/01/19 19:30 98 F 60 16 146/70 94 L 04/01/19 17:25 62 18 154/102 95 04/01/19 16:25 97.3 F L 63 16 157/73 97 04/01/19 13:23 97.4 F L 73 22 152/92 96 Intake and Output 04/01/19 04/02/19 04/02/19 22:59 06:59 14:59 Intake Total 222 Balance 222 Intake: Oral 222 Other: Voiding Method Bedside Commode # Voids 1 Weight 51 kg PHYSICAL EXAMINATION: GENERAL: The patient is alert and oriented x3, not in any acute distress. Thin built cachectic HEENT: Pupils are round and equally reacting to light. EOMI. No scleral icterus. No conjunctival pallor. Normocephalic, atraumatic. No pharyngeal erythema. No thyromegaly. CARDIOVASCULAR: S1 and S2 present. No murmurs, rubs, or gallops. PULMONARY: Diffuse bilateral crackles ABDOMEN: Soft, nontender, nondistended, normoactive bowel sounds. No palpable organomegaly. MUSCULOSKELETAL: No joint swelling or deformity. EXTREMITIES: No cyanosis, clubbing, or pedal edema. NEUROLOGICAL: Gross neurological examination did not reveal any focal deficits. SKIN: No rashes. Results CBC & Chem 7: 04/01/19 14:00 04/01/19 14:00 Labs: Abnormal Lab Results - Last 24 Hours (Table) 04/01/19 04/01/19 04/01/19 Range/Units 14:00 14:00 14:00 RBC 3.32 L (3.80-5.40) m/uL Hgb 9.9 L (11.4-16.0) gm/dL Hct 30.9 L (34.0-46.0) % Lymphocytes # 0.4 L (1.0-4.8) k/uL PT 12.1 H (9.0-12.0) sec INR 1.2 H (<1.2) APTT 31.5 H (22.0-30.0) sec Sodium 130 L (137-145) mmol/L Chloride 91 L (98-107) mmol/L BUN 24 H (7-17) mg/dL Glucose 109 H (74-99) mg/dL POC Glucose (mg/dL) (75-99) mg/dL Calcium 7.9 L (8.4-10.2) mg/dL Ionized Calcium Malik 3.9 L (4.5-5.3) mg/dL Magnesium 0.8 L* (1.6-2.3) mg/dL Urine Appearance (Clear) Urine Protein (Negative) Urine Blood (Negative) Ur Leukocyte Esterase (Negative) Urine WBC (0-5) /hpf Ur Squamous Epith Cells (0-4) /hpf Amorphous Sediment (None) /hpf Urine Bacteria (None) /hpf Hyaline Casts (0-2) /lpf Urine Mucus (None) /hpf 04/01/19 04/01/19 04/02/19 Range/Units 14:50 22:35 06:17 RBC (3.80-5.40) m/uL Hgb (11.4-16.0) gm/dL Hct (34.0-46.0) % Lymphocytes # (1.0-4.8) k/uL PT (9.0-12.0) sec INR (<1.2) APTT (22.0-30.0) sec Sodium (137-145) mmol/L Chloride (98-107) mmol/L BUN (7-17) mg/dL Glucose (74-99) mg/dL POC Glucose (mg/dL) 102 H (75-99) mg/dL Calcium (8.4-10.2) mg/dL Ionized Calcium Malik (4.5-5.3) mg/dL Magnesium 1.4 L (1.6-2.3) mg/dL Urine Appearance Cloudy H (Clear) Urine Protein 1+ H (Negative) Urine Blood Small H (Negative) Ur Leukocyte Esterase Trace H (Negative) Urine WBC 7 H (0-5) /hpf Ur Squamous Epith Cells 13 H (0-4) /hpf Amorphous Sediment Occasional H (None) /hpf Urine Bacteria Many H (None) /hpf Hyaline Casts 50 H (0-2) /lpf Urine Mucus Rare H (None) /hpf Thrombosis Risk Factor Assmnt - Choose All That Apply Any of the Below Risk Factors Present?: Yes Each Factor Represents 1 point: Medical pt on bed rest Each Risk Factor Represents 3 Points: Age 75 years or older Thrombosis Risk Factor Assessment Total Risk Factor Score: 4 Thrombosis Risk Factor Assessment Level: Moderate Risk Assessment and Plan Plan: -Tingling and numbness in both lower extremities: Probably secondary to back pain and radical apathy. No operative intervention at this time pain management physical therapy. -Anxiety episode -Hypomagnesemia magnesium was corrected -Asymptomatic bacteriuria will not require any antibiotics -Atrial fibrillation on anticoagulation which will be continued but if patient has frequent falls need to reconsider anti-correlation at the time -Type 2 diabetes mellitus -Seizure disorder -Possible pulmonary fibrosis: Patient will benefit from follow-up with pulmonology uses 2 L of oxygen patient has chronic hypoxic respiratory failure -Generalized weakness secondary to muscle atrophy from her age - hypovolemic hyponatremia patient received IV fluids and check the repeat sodium fits low patient may need to stay here. Although patient's SATURATIONS ARE GOING ON BECAUSE OF WHICH I DISCONTINUED IV FLUIDS -Nausea vomiting: Possibly secondary to gastritis on Protonix will be given prescriptions for Zantac. Rest of the plan as mentioned in the HPI itself
[2019-04-02 11:50] LABS: Glucose,Whole Blood 119 mg/dL (75-99)
--- NOTE | 2019-04-02 12:06 | XR ---
EXAMINATION TYPE: XR chest 2V DATE OF EXAM: 04/02/2019 COMPARISON: 04/01/2019 TECHNIQUE: PA and lateral views submitted. HISTORY: Shortness of breath FINDINGS: Coarsened interstitium is noted with no pleural effusion or pneumothorax. Biapical pleural thickening . Diffuse osteopenia. Hypertrophic and degenerative change of the spine. Complete compression deformi ty at the thoracolumbar junction is noted. Atherosclerotic change aorta. IMPRESSION: 1. Correlate for pulmonary fibrosis. Underlying superimposed interstitial pneumonitis or venous conge stion not entirely excluded. 2. Complete compression fracture thoracolumbar junction.
--- NOTE | 2019-04-02 12:09 | XR ---
EXAM TYPE: LUMBAR SPINE X RAY SERIES COMPARISON: 03/29/2019 HISTORY: Pain TECHNIQUE: 3 views are submitted. FINDINGS: There is a stable compression fracture of T12 which now demonstrates a complete compression fracture. Superior endplate deformity of L3 is mildly progressed from the prior exam and there is a stable angella earing compression fracture of L5. There is diffuse osteopenia and multilevel hypertrophic and degenerative disc disease and facet arthr opathy. Vascular calcifications are noted. Curvature the spine noted and is arthropathy of the SI geovany nts. IMPRESSION: 1. Recently noted compression fractures are again noted and appear to be stable. Complete compression fracture with retropulsion as noted previously at T12. Correlate with MRI or CT.
--- NOTE | 2019-04-02 13:00 | P.CNOR ---
History of Present Illness - [facility] Consult date: 04/02/19 Requesting physician: Son Fu Consult reason: fracture (Chronic T12 fracture, acute L3 fracture, and acute on chronic L5 fracture), low back pain History of present illness: Patient is a very pleasant 84-year-old female who is seen and examined at the bedside for further evaluation of her thoracic and lumbar spines. Patient has been previously seen and examined in our office. She is known to have compression fracture deformities at T12 and L5. She was last seen in our office on 12/25/2018. At that time her back pain had been adequately controlled. She was working to rehabilitation at [facility] until recently and was recently discharged home on 03/24/2019. She states she had continue to work with some home care. She states this past 03/28/2019, she started to experience increased back pain most significantly at the lumbar spine while working with [employer]. She was brought to the hospital for further treatment and evaluation on 04/01/2019 with some swelling and numbness and tingling in the lower extremities and was also found to have hypo-magnesium. Patient is complaining of some swelling of bilateral lower extremities but is not currently complaining of any numbness or tingling. She was admitted for further evaluation. Chest x-ray showed evidence of her T12 compression fracture deformity. She was seen and examined this morning by myself at which time I ordered x-rays of the lumbosacral spine. This imaging was reviewed and I presented back to see her at noon today. Imaging shows evidence of worsening compression fracture at L5 and new compression fracture at L3. Currently she states she has pain along her lumbar spine. She is not currently complaining of significant thoracic pain. She has some increased back pain with performing hip flexion. She currently denies specific lower extremity radiculopathy or weakness. She was previously prescribed a TLSO brace for her T12 fracture. She has not been previously prescribed an LSO brace. Plan of care is discussed with the patient and her family. Patient was also found to have changes in her urine which family states does not currently require antibiotic medication. 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 Past Anesthesia/Blood Transfusion Reactions: No Reported Reaction Past Psychological History: No Psychological Hx Reported Smoking Status: Never smoker Past Alcohol Use History: None Reported Past Drug Use History: None Reported - Past Family History Daughter(s) Additional Family Medical History / Comment(s): arthritis Medications and Allergies Home Medications Medication Instructions Recorded Confirmed Type Carvedilol [Coreg] 6.25 mg PO BID 10/05/18 04/01/19 History Cholecalciferol [Vitamin D3 (25 1,000 unit PO DAILY 10/05/18 04/01/19 History Mcg = 1000 Iu)] Lacosamide [Vimpat] 50 mg PO Q12H 10/05/18 04/01/19 History Ondansetron [Zofran ODT] 4 mg PO TID PRN 10/05/18 04/01/19 History Pantoprazole [Protonix] 40 mg PO DAILY 10/05/18 04/01/19 History levETIRAcetam [Keppra Oral 1,000 mg PO BID 10/05/18 04/01/19 History Solution] metFORMIN HCL [Glucophage] 500 mg PO BID 10/05/18 04/01/19 History HYDROcodone/APAP 7.5-325MG [[place] 1 tab PO Q6H PRN 03/02/19 04/01/19 History 7.5-325] Lisinopril [Zestril] 20 mg PO BID 03/02/19 04/01/19 History Amiodarone [Cordarone] 200 mg PO BID 04/01/19 04/01/19 History Apixaban [Eliquis] 2.5 mg PO DAILY 04/01/19 04/01/19 History Atorvastatin [Lipitor] 20 mg PO DAILY 04/01/19 04/01/19 History Lactobacillus Acidophilus 1 tab PO DAILY 04/01/19 04/01/19 History [Acidophilus] Lactulose 10 gm PO DAILY 04/01/19 04/01/19 History Nitroglycerin Sl Tabs [Nitrostat] 0.4 mg SUBLINGUAL Q5M PRN 04/01/19 04/01/19 History amLODIPine [Norvasc] 2.5 mg PO DAILY 04/01/19 04/01/19 History Famotidine [Pepcid] 20 mg PO BID #30 tablet 04/02/19 Rx Allergies Allergy/AdvReac Type Severity Reaction Status Date / Time phenytoin [From Dilantin] Allergy Anaphylaxis Verified 04/01/19 14:06 Physical Examination Physical exam: Patient is awake, alert, and oriented 3 Vital signs stable Good chest excursion with deep inspiration and expiration Examination of thoracic and lumbar spine reveals skin is intact with no abrasions, lacerations, or bruises; no erythema, purulence or signs of infection Dorsiflexion, plantarflexion, and extensor hallucis longus positive sustained bilaterally Lower extremity strength positive sustained throughout range of motion bilaterally Some increased low back pain with hip flexion bilaterally Straight leg test negative bilateral lower extremities Evidence of some swelling of the bilateral lower extremities No signs or symptoms of DVT; no calf pain No pain with internal and external rotation of the hips bilaterally Neurovascularly intact Results Pertinent studies: X-rays of the thoracolumbar spine taken on 04/02/2019: Evidence of chronic T12 compression fracture deformity without significant changes compared to previous imaging taken at [facility] on 11/27/2018 and 9; evidence of new acute L3 compression fracture deformity with approximately 25% height loss of the superior endplate; L5 worsening compression fracture deformity with approximately 50% to 60% height loss as compared to previous imaging taken on 11/27/2018 and 12/25/2018; other degenerative changes appear to be stable X-rays lumbosacral spine taken at [facility] on 12/25/2018: T12 wedging compression fracture deformity the approximately 95% height loss; L5 compression fracture deformity of approximately 30% to 40% height loss; significant degenerative changes including degenerative disc disease and spondylosis throughout the lumbar spine - Labs Labs: Abnormal Lab Results - Last 24 Hours (Table) 04/01/19 04/01/19 04/01/19 Range/Units 14:00 14:00 14:00 RBC 3.32 L (3.80-5.40) m/uL Hgb 9.9 L (11.4-16.0) gm/dL Hct 30.9 L (34.0-46.0) % Lymphocytes # 0.4 L (1.0-4.8) k/uL PT 12.1 H (9.0-12.0) sec INR 1.2 H (<1.2) APTT 31.5 H (22.0-30.0) sec Sodium 130 L (137-145) mmol/L Chloride 91 L (98-107) mmol/L BUN 24 H (7-17) mg/dL Glucose 109 H (74-99) mg/dL POC Glucose (mg/dL) (75-99) mg/dL Calcium 7.9 L (8.4-10.2) mg/dL Ionized Calcium Malik 3.9 L (4.5-5.3) mg/dL Magnesium 0.8 L* (1.6-2.3) mg/dL Urine Appearance (Clear) Urine Protein (Negative) Urine Blood (Negative) Ur Leukocyte Esterase (Negative) Urine WBC (0-5) /hpf Ur Squamous Epith Cells (0-4) /hpf Amorphous Sediment (None) /hpf Urine Bacteria (None) /hpf Hyaline Casts (0-2) /lpf Urine Mucus (None) /hpf 04/01/19 04/01/19 04/02/19 Range/Units 14:50 22:35 06:17 RBC (3.80-5.40) m/uL Hgb (11.4-16.0) gm/dL Hct (34.0-46.0) % Lymphocytes # (1.0-4.8) k/uL PT (9.0-12.0) sec INR (<1.2) APTT (22.0-30.0) sec Sodium (137-145) mmol/L Chloride (98-107) mmol/L BUN (7-17) mg/dL Glucose (74-99) mg/dL POC Glucose (mg/dL) 102 H (75-99) mg/dL Calcium (8.4-10.2) mg/dL Ionized Calcium Malik (4.5-5.3) mg/dL Magnesium 1.4 L (1.6-2.3) mg/dL Urine Appearance Cloudy H (Clear) Urine Protein 1+ H (Negative) Urine Blood Small H (Negative) Ur Leukocyte Esterase Trace H (Negative) Urine WBC 7 H (0-5) /hpf Ur Squamous Epith Cells 13 H (0-4) /hpf Amorphous Sediment Occasional H (None) /hpf Urine Bacteria Many H (None) /hpf Hyaline Casts 50 H (0-2) /lpf Urine Mucus Rare H (None) /hpf 10/04/19 Range/Units 11:48 RBC (3.80-5.40) m/uL Hgb (11.4-16.0) gm/dL Hct (34.0-46.0) % Lymphocytes # (1.0-4.8) k/uL PT (9.0-12.0) sec INR (<1.2) APTT (22.0-30.0) sec Sodium (137-145) mmol/L Chloride (98-107) mmol/L BUN (7-17) mg/dL Glucose (74-99) mg/dL POC Glucose (mg/dL) 119 H (75-99) mg/dL Calcium (8.4-10.2) mg/dL Ionized Calcium Malik (4.5-5.3) mg/dL Magnesium (1.6-2.3) mg/dL Urine Appearance (Clear) Urine Protein (Negative) Urine Blood (Negative) Ur Leukocyte Esterase (Negative) Urine WBC (0-5) /hpf Ur Squamous Epith Cells (0-4) /hpf Amorphous Sediment (None) /hpf Urine Bacteria (None) /hpf Hyaline Casts (0-2) /lpf Urine Mucus (None) /hpf H & H 04/01/19 Range/Units 14:00 Hgb 9.9 L (11.4-16.0) gm/dL Hct 30.9 L (34.0-46.0) % Coagulation 04/01/19 Range/Units 14:00 INR 1.2 H (<1.2) Result Diagrams: 04/01/19 14:00 04/01/19 14:00 Assessment and Plan Assessment: Assessment: Acute L3 compression fracture deformity Acute on chronic worsening L5 compression fracture deformity Chronic T12 compression fracture deformity Mild thoracic back pain Significant lumbar pain Lumbar degenerative disc disease and spondylosis Hypo-magnesium Swelling bilateral lower extremities History of atrial fibrillation, diabetes mellitus, and seizure disorder (1) Compression fracture of L3 vertebra Current Visit: Yes Status: Acute Code(s): S32.030A - WEDGE COMPRESSION FRACTURE OF THIRD LUMBAR VERTEBRA, INIT SNOMED Code(s): 346555005 (2) Lumbar degenerative disc disease Current Visit: Yes Status: Acute Code(s): M51.36 - OTHER INTERVERTEBRAL DISC DEGENERATION, LUMBAR REGION SNOMED Code(s): 89540228 (3) History of atrial fibrillation Current Visit: Yes Status: Acute Code(s): Z86.79 - PERSONAL HISTORY OF OTHER DISEASES OF THE CIRCULATORY SYSTEM SNOMED Code(s): 867410567 (4) History of diabetes mellitus Current Visit: Yes Status: Acute Code(s): Z86.39 - PERSONAL HISTORY OF ENDO, NUTRITIONAL AND METABOLIC DISEASE SNOMED Code(s): 667334843 (5) History of seizure disorder Current Visit: Yes Status: Acute Code(s): Z86.69 - PERSONAL HISTORY OF DIS OF THE NERVOUS SYS AND SENSE ORGANS SNOMED Code(s): 560375893 (6) Swelling of lower extremity Current Visit: Yes Status: Acute Code(s): M79.89 - OTHER SPECIFIED SOFT TISSUE DISORDERS SNOMED Code(s): 973590984 (7) Hypomagnesemia Current Visit: Yes Status: Acute Code(s): E83.42 - HYPOMAGNESEMIA SNOMED Code(s): 382083469 (8) Acute low back pain Current Visit: No Status: Acute Code(s): M54.5 - LOW BACK PAIN SNOMED Code(s): 310876016 (9) Compression fracture of L5 vertebra Current Visit: No Status: Acute Code(s): S32.050A - WEDGE COMPRESSION FRACTURE OF FIFTH LUMBAR VERTEBRA, INIT SNOMED Code(s): 392607671 (10) Lumbar facet arthropathy Current Visit: No Status: Acute Code(s): M47.816 - SPONDYLOSIS W/O MYELOPATHY OR RADICULOPATHY, LUMBAR REGION SNOMED Code(s): 979579906 (11) T12 compression fracture Current Visit: No Status: Acute Code(s): S22.080A - WEDGE COMPRESSION FRACTURE OF T11-T12 VERTEBRA, INIT SNOMED Code(s): 434883595 Plan: Plan: 1. After reviewing of imaging, physical examination the patient, and further discussion with the patient, will currently planned to continue with conservative treatment at this time. She has evidence of a T12 chronic compression fracture deformity. She has evidence of an acute L3 compression fracture deformity and acute on chronic with worsening L5 compression fracture deformity. At this time will currently planned for bracing. A prescription has been written and provided to case management for a Spinomed Exos LSO brace. Once this brace is delivered and fitted appropriately, patient should wear this brace while sitting upright at greater than 45, during increase activities, during ambulation. Brace does not have to or while lying in bed or while ba thing. Following fitting of this brace, patient is clear for discharge from an orthopedic spine standpoint. Following discharge, patient may follow-up with Trevin Wylie PA-C or Dr. Cesar Gutierres at [facility] in approximately 2-3 weeks for further evaluation. 2. Patient will continue to be seen and examined by medicine for other medical diagnoses Time with Patient: Greater than 30 (Including obtaining history, physical examination, reviewing of imaging, and dictation.)
[2019-04-02 15:46] LABS: African American GFR (CKD) >90 (>60 ml/min/1.73 sqM); Anion Gap 6 mmol/L; Blood Urea Nitrogen 14 mg/dL (7-17); Calcium 7.8 mg/dL (8.4-10.2); Carbon Dioxide 31 mmol/L (22-30); Chloride 93 mmol/L (98-107); Glucose 138 mg/dL (74-99); Potassium 3.4 mmol/L (3.5-5.1); Sodium 130 mmol/L (137-145)
[2019-04-02] MEDS ORDERED: POTASSIUM CHLORIDE ER 20 MEQ TAB.ER PO STA (15:52)
[2019-04-02 20:00] VITALS: RESP 18
[2019-04-03] MEDS: HYDROcodone/APAP 7.5-325MG 1 EACH TAB PO PRN ×2 (01:47→08:59)
[2019-04-03] MEDS: PANTOPRAZOLE 40 MG TABLET PO SCH (05:44)
[2019-04-03] MEDS: CARVEDILOL 6.25 MG TAB PO SCH (05:44)
[2019-04-03 06:46] LABS: African American GFR (CKD) >90 (>60 ml/min/1.73 sqM); Anion Gap 7 mmol/L; Blood Urea Nitrogen 15 mg/dL (7-17); Calcium 8.1 mg/dL (8.4-10.2); Carbon Dioxide 32 mmol/L (22-30); Chloride 94 mmol/L (98-107); Glucose 94 mg/dL (74-99); Potassium 3.6 mmol/L (3.5-5.1); Sodium 133 mmol/L (137-145)
[2019-04-03] MEDS ORDERED: LACTULOSE 20 GM/30 ML CUP PO PRN (08:11)
--- NOTE | 2019-04-03 08:34 | P.DS ---
Providers Date of admission: 04/01/19 16:53 Attending physician: Darlene Jeronimo Consults: 04/01/19 22:46 Consult Physician Routine Consulting Provider: Kalli Gutierres Consult Reason/Comments: Complete Compression Fracture Do you want consulting provider notified?: Yes, Notify in am Primary care physician: [facility] Course: 83-year-old the pleasant female came in with abnormal sensation in both feet denied any weakness does have chronic back pain may be contributing to her that tingling and numbness in both legs. Patient was evaluated by spinal surgeon here. Patient's and incidentally is found to have hypomagnesemia patient is a very thin built cachectic prior looking 84-year-old female. Patient denied dysuria patient occasionally gets constipated because of the opiates she is taking for back pain patient has been on these opiates for long time. Patient has been nauseated and had a few episodes of emesis as today even today she had an episode of emesis. Patient is on Protonix at this time and patient will be discharged on Zantac patient's saturations have gone down today patient does have diffuse crackles may be chronic from her pulmonary fibrosis which is evident on the chest x-ray. Because of fighting decreased saturations and had a gym concern about pulmonary edema from some amount of diastolic dysfunction which is expected in most patients of her age I'll repeat the chest x-ray doesn't show any pulmonary edema and if her 04/03/2019 Patient is clinically doing well serum sodium improved to 133 patient can be discharged patient is still constipated will order lactulose and patient will be discharged on lactulose as well. Her constipation is secondary to [place]. Patient has a compression fracture in the lumbar vertebrae, offered subacute rehabilitation patient wanted to go home with home care. Her nausea resolved. PHYSICAL EXAMINATION: GENERAL: The patient is alert and oriented x3, not in any acute distress. Thin built cachectic HEENT: Pupils are round and equally reacting to light. EOMI. No scleral icterus. No conjunctival pallor. Normocephalic, atraumatic. No pharyngeal erythema. No thyromegaly. CARDIOVASCULAR: S1 and S2 present. No murmurs, rubs, or gallops. PULMONARY: Diffuse bilateral crackles ABDOMEN: Soft, nontender, nondistended, normoactive bowel sounds. No palpable organomegaly. MUSCULOSKELETAL: No joint swelling or deformity. EXTREMITIES: No cyanosis, clubbing, or pedal edema. NEUROLOGICAL: Gross neurological examination did not reveal any focal deficits. SKIN: No rashes. Assessment and Plan Plan: -Tingling and numbness in both lower extremities: Probably secondary to back pain and radical apathy from compression fracture patient will undergo physical therapy at home along with TLSO brace -Anxiety episode -Hypomagnesemia magnesium was corrected -Asymptomatic bacteriuria will not require any antibiotics -Atrial fibrillation on anticoagulation which will be continued but if patient has frequent falls need to reconsider anticoagulation -Type 2 diabetes mellitus -Seizure disorder -Possible pulmonary fibrosis: Patient will benefit from follow-up with pulmonology uses 2 L of oxygen patient has chronic hypoxic respiratory failure -Generalized weakness secondary to muscle atrophy from her age - hypovolemic hyponatremia improved with IV fluids -Nausea vomiting: Continue with Protonix and secondary to gastritis. Patient Condition at Discharge: Fair Plan - Discharge Summary New Discharge Prescriptions: New Lidocaine 5% Patch [Lidoderm 5% Patch] 1 patch TOPICAL DAILY #10 patch Lactulose [Cephulac] 20 gm PO DAILY PRN #100 ml PRN Reason: Constipation Continue levETIRAcetam [Keppra Oral Solution] 1,000 mg PO BID Ondansetron [Zofran ODT] 4 mg PO TID PRN PRN Reason: Nausea Carvedilol [Coreg] 6.25 mg PO BID Pantoprazole [Protonix] 40 mg PO DAILY Lacosamide [Vimpat] 50 mg PO Q12H Cholecalciferol [Vitamin D3 (25 Mcg = 1000 Iu)] 1,000 unit PO DAILY HYDROcodone/APAP 7.5-325MG [[place] 7.5-325] 1 tab PO Q6H PRN PRN Reason: Pain Lisinopril [Zestril] 20 mg PO BID Amiodarone [Cordarone] 200 mg PO BID amLODIPine [Norvasc] 2.5 mg PO DAILY Apixaban [Eliquis] 2.5 mg PO DAILY Atorvastatin [Lipitor] 20 mg PO DAILY Lactobacillus Acidophilus [Acidophilus] 1 tab PO DAILY Nitroglycerin Sl Tabs [Nitrostat] 0.4 mg SUBLINGUAL Q5M PRN PRN Reason: Chest Pain Changed metFORMIN HCL [Glucophage] 500 mg PO DAILY #0 Discontinued Lactulose 10 gm PO DAILY Discharge Medication List Carvedilol [Coreg] 6.25 mg PO BID 10/05/18 [History] Cholecalciferol [Vitamin D3 (25 Mcg = 1000 Iu)] 1,000 unit PO DAILY 10/05/18 [History] Lacosamide [Vimpat] 50 mg PO Q12H 10/05/18 [History] Ondansetron [Zofran ODT] 4 mg PO TID PRN 10/05/18 [History] Pantoprazole [Protonix] 40 mg PO DAILY 10/05/18 [History] levETIRAcetam [Keppra Oral Solution] 1,000 mg PO BID 10/05/18 [History] HYDROcodone/APAP 7.5-325MG [[place] 7.5-325] 1 tab PO Q6H PRN 03/02/19 [History] Lisinopril [Zestril] 20 mg PO BID 03/02/19 [History] Amiodarone [Cordarone] 200 mg PO BID 04/01/19 [History] Apixaban [Eliquis] 2.5 mg PO DAILY 04/01/19 [History] Atorvastatin [Lipitor] 20 mg PO DAILY 04/01/19 [History] Lactobacillus Acidophilus [Acidophilus] 1 tab PO DAILY 04/01/19 [History] Nitroglycerin Sl Tabs [Nitrostat] 0.4 mg SUBLINGUAL Q5M PRN 04/01/19 [History] amLODIPine [Norvasc] 2.5 mg PO DAILY 04/01/19 [History] Lidocaine 5% Patch [Lidoderm 5% Patch] 1 patch TOPICAL DAILY #10 patch 04/02/19 [Rx] metFORMIN HCL [Glucophage] 500 mg PO DAILY #0 04/02/19 [Rx] Lactulose [Cephulac] 20 gm PO DAILY PRN #100 ml 04/03/19 [Rx] Follow up Appointment(s)/Referral(s): Trevin Wylie PAC [PHYSICIAN SALES SERVICE REPRESENTATIVE] - 2 Weeks (Patient may follow-up with Trevin Wylie PA-C or Dr. Cesar Gutierres at [facility] in 2-3 weeks following discharge. ) [facility] [NON-STAFF] - Adam Huntley DO [Primary Care Provider] - 3 Days Activity/Diet/Wound Care/Special Instructions: 1. Patient may wear LSO brace for comfort and support while sitting upright at greater than 45, while working with therapy, and while ambulating; patient does not have to wear the brace while lying in bed or bathing 2. Patient should avoid excessive bending, twisting, and lifting; no lifting greater than 10 pounds Discharge Disposition: HOME WITH HOME HEALTH SERVICES
[2019-04-03] MEDS: CHOLECALCIFEROL 1,000 UNIT TAB PO SCH (08:59)
[2019-04-03] MEDS: LISINOPRIL 20 MG TAB PO SCH (08:59)
[2019-04-03] MEDS: levETIRAcetam ORAL SOLN 500 MG/5 ML CUP PO SCH (09:00)
[2019-04-03] MEDS: APIXABAN 2.5 MG TABLET PO SCH (09:00)
[2019-04-03] MEDS: LACOSAMIDE 50 MG TABLET PO SCH (09:00)
[2019-04-03] MEDS: amLODIPine 2.5 MG TAB PO SCH (09:00)
[2019-04-03] MEDS: LIDOCAINE 5% PATCH TOPICAL SCH (09:00)
[2019-04-03] MEDS: AMIODARONE 200 MG TAB PO SCH (09:00)
[2019-04-03 10:28] VITALS: BP 122/57; PULSE 52; TEMP 97.7
--- NOTE | 2019-04-07 11:42 | CDI ---
Documentation Clarification Form Date: 04/07/19 From: Fanny Zepeda Phone: If questions call Kristin Cade @ [phone], Hours-8:30 am & 5 pm [place] Admit Date: 04/01/2019 4:53:00 PM Patient Name: Bess Jonas Visit Number: [id number] Discharge Date: 04/03/2019 11:28:00 AM ATTENTION: The Clinical Documentation Specialists (CDI) and [facility] Coding Staff appreciate your assistance in clarifying documentation. Please respond to the clarification below the line at the bottom and electronically sign. The CDI & [facility] Coding staff will review the response and follow-up if needed. Please note: Queries are made part of the Legal Health Record. If you have any questions, please contact the author of this message via ITS. Dr. Darlene Jeronimo Atrial Fibrillation is documented in the ED note, H&P, consult and DS. History/Risk Factors: hypomagnesemia, cachexia, BMI 18.3, hyponatremia, chronic hypoxic respiratory failure, pulmonary fibrosis EKG/telemetry: Ventricular rate 65, atrial flutter, QRS 92, QTC 482, no AL or QTC prolongation Treatment: Cordarone, Eliquis In your professional opinion, can you please clarify the type of Atrial Fibrillation, if known? Chronic/Permanent Paroxysmal Persistent Other, please specify Unable to determine MTDD
--- NOTE | 2019-04-07 11:45 | CDI ---
Documentation Clarification Form Date: 04/07/19 From: Fanny Zepeda Phone: If questions call Kristin Cade @ [phone], Hours-8:30 am & 5 pm [place] Admit Date: 04/01/2019 4:53:00 PM Patient Name: Bess Jonas Visit Number: [id number] Discharge Date: 04/03/2019 11:28:00 AM ATTENTION: The Clinical Documentation Specialists (CDI) and [facility] Coding Staff appreciate your assistance in clarifying documentation. Please respond to the clarification below the line at the bottom and electronically sign. The CDI & [facility] Coding staff will review the response and follow-up if needed. Please note: Queries are made part of the Legal Health Record. If you have any questions, please contact the author of this message via ITS. Dr. Darlene Jeronimo Atrial Flutter is documented in the ED note. History/Risk Factors: hypomagnesemia, cachexia, BMI 18.3, hyponatremia, chronic hypoxic respiratory failure, pulmonary fibrosis EKG/telemetry: Ventricular rate 65, atrial flutter, QRS 92, QTC 482, no CA or QTC prolongation Treatment: Cordarone, Eliquis In your professional opinion, in order to capture the severity of condition; can you please clarify the type of Atrial Flutter if known? Typical/Type I Atypical/Type II Other, please specify Unable to determine MTDD
--- NOTE | 2019-04-07 11:55 | CDI ---
Documentation Clarification Form Date: 04/07/19 From: Fanny Zepeda Phone: If questions call Kristin Cade @ [phone], Hours-8:30 am & 5 pm [place] Admit Date: 04/01/2019 4:53:00 PM Patient Name: Bess Jonas Visit Number: [id number] Discharge Date: 04/03/2019 11:28:00 AM ATTENTION: The Clinical Documentation Specialists (CDI) and [facility] Coding Staff appreciate your assistance in clarifying documentation. Please respond to the clarification below the line at the bottom and electronically sign. The CDI & [facility] Coding staff will review the response and follow-up if needed. Please note: Queries are made part of the Legal Health Record. If you have any questions, please contact the author of this message via ITS. Dr. Kalli Gutierres Patient has been diagnosed with a compression fractures: acute T12, acute L3 and acute on chronic L5. History/Risk Factors: hypomagnesemia, cachexia, BMI 18.3, hyponatremia, chronic hypoxic respiratory failure, pulmonary fibrosis X-Ray Results Treatment: has TLSO brace for T12 fx, order new brace In your professional opinion, please specify the following: Etiology of fracture: Traumatic Pathological (specify cause): Neoplastic disease Osteoporosis Other (please specify): Unable to determine Also, indicate any associated diagnosis/conditions related to the Fracture in your documentation. The patient has multiple compression fractures of varying chronicity. She appears to have a new acute compression fracture at T12 which is pathologic due to osteoporosis. She has multiple medical complexities with her pulmonary fibrosis chronic hypoxic respiratory failure hypomagnesemia hyponatremia that contribute to her osteoporosis as well. ABDELRAHMAN
== END 2019-04-03 11:28 | disposition home health service (06) | DRG 543 ==
LOC: EC 13:20 → 3SCARD 16:53
PROVIDERS: ADMIT Internal Medicine; ATTEND Internal Medicine
DX: M80.08XA Age-related osteoporosis with current pathological fracture, vertebra(e), initial encounter for fracture (principal); R64 Cachexia; Z68.1 Body mass index [BMI] 19.9 or less, adult; E87.1 Hypo-osmolality and hyponatremia; J96.11 Chronic respiratory failure with hypoxia; I48.92 Unspecified atrial flutter; E83.42 Hypomagnesemia; J84.10 Pulmonary fibrosis, unspecified; E86.1 Hypovolemia; I69.834 Monoplegia of upper limb following other cerebrovascular disease affecting left non-dominant side; R82.71 Bacteriuria; G40.909 Epilepsy, unspecified, not intractable, without status epilepticus; E11.9 Type 2 diabetes mellitus without complications; K29.70 Gastritis, unspecified, without bleeding; R40.2142 Coma scale, eyes open, spontaneous, at arrival to emergency department; R40.2362 Coma scale, best motor response, obeys commands, at arrival to emergency department; R40.2252 Coma scale, best verbal response, oriented, at arrival to emergency department; I48.91 Unspecified atrial fibrillation; K59.03 Drug induced constipation; T40.2X5A Adverse effect of other opioids, initial encounter; M51.36 Other intervertebral disc degeneration, lumbar region; M47.816 Spondylosis without myelopathy or radiculopathy, lumbar region; M46.96 Unspecified inflammatory spondylopathy, lumbar region; M62.50 Muscle wasting and atrophy, not elsewhere classified, unspecified site; F41.9 Anxiety disorder, unspecified; Z99.81 Dependence on supplemental oxygen; Z79.01 Long term (current) use of anticoagulants; Z79.84 Long term (current) use of oral hypoglycemic drugs; Z79.899 Other long term (current) drug therapy; Z86.79 Personal history of other diseases of the circulatory system; Z98.51 Tubal ligation status; Z88.8 Allergy status to other drugs, medicaments and biological substances; Y92.009 Unspecified place in unspecified non-institutional (private) residence as the place of occurrence of the external cause
CPT/HCPCS: 36415; 71046; 72100; 80048; 80053; 81001; 82330; 83605; 83735; 84484; 85025; 85610; 85730; 93005; 96361; 96365; 96366; 96375; 99285

== ENCOUNTER 2019-04-07 17:01 | Emergency (ER) | payer MEDICARE, BC ==
[2019-04-07] MEDS ORDERED: SODIUM CHLORIDE 0.9% 1,000 ML IV STA (17:57)
--- NOTE | 2019-04-07 18:01 | ED ---
Abdominal Pain HPI - General Chief Complaint: Abdominal Pain Stated Complaint: impaction Time Seen by Provider: 04/07/19 17:33 Source: patient, RN notes reviewed Mode of arrival: wheelchair Limitations: no limitations - History of Present Illness Initial Comments: 84-year-old female presents emergency department with family from PCPs office for concerns of obstruction. Patient's been having some ongoing constipation no bowel movement in 8 days. She's having increasing abdominal discomfort she has had some intermittent vomiting. Patient has been on some stool softeners with no relief. They have tried some home remedies also with no relief. No prior bowel obstructions. She has had some issues with constipation and recent history of left-sided imbalances. Patient has been hospitalized. Patient does take Thornton for chronic back pain related to a thoracic compression fracture. - Related Data Home Medications Medication Instructions Recorded Confirmed Carvedilol [Coreg] 6.25 mg PO BID 10/05/18 04/01/19 Cholecalciferol [Vitamin D3 (25 1,000 unit PO DAILY 10/05/18 04/01/19 Mcg = 1000 Iu)] Lacosamide [Vimpat] 50 mg PO Q12H 10/05/18 04/01/19 Ondansetron [Zofran ODT] 4 mg PO TID PRN 10/05/18 04/01/19 Pantoprazole [Protonix] 40 mg PO DAILY 10/05/18 04/01/19 levETIRAcetam [Keppra Oral 1,000 mg PO BID 10/05/18 04/01/19 Solution] HYDROcodone/APAP 7.5-325MG [[place] 1 tab PO Q6H PRN 03/02/19 04/01/19 7.5-325] Lisinopril [Zestril] 20 mg PO BID 03/02/19 04/01/19 Amiodarone [Cordarone] 200 mg PO BID 04/01/19 04/01/19 Apixaban [Eliquis] 2.5 mg PO DAILY 04/01/19 04/01/19 Atorvastatin [Lipitor] 20 mg PO DAILY 04/01/19 04/01/19 Lactobacillus Acidophilus 1 tab PO DAILY 04/01/19 04/01/19 [Acidophilus] Nitroglycerin Sl Tabs [Nitrostat] 0.4 mg SUBLINGUAL Q5M PRN 04/01/19 04/01/19 amLODIPine [Norvasc] 2.5 mg PO DAILY 04/01/19 04/01/19 Previous Rx's Medication Instructions Recorded Lidocaine 5% Patch [Lidoderm 5% 1 patch TOPICAL DAILY #10 patch 04/02/19 Patch] metFORMIN HCL [Glucophage] 500 mg PO DAILY #0 04/02/19 Lactulose [Cephulac] 20 gm PO DAILY PRN #100 ml 04/03/19 Allergies Allergy/AdvReac Type Severity Reaction Status Date / Time phenytoin [From Dilantin] Allergy Anaphylaxis Verified 04/01/19 14:06 Review of Systems ROS Statement: Those systems with pertinent positive or pertinent negative responses have been documented in the HPI. ROS Other: All systems not noted in ROS Statement are negative. 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 Past Anesthesia/Blood Transfusion Reactions: No Reported Reaction Past Psychological History: No Psychological Hx Reported Smoking Status: Never smoker Past Alcohol Use History: None Reported Past Drug Use History: None Reported - Past Family History Daughter(s) Additional Family Medical History / Comment(s): arthritis General Exam Limitations: no limitations General appearance: alert, in no apparent distress Head exam: Present: atraumatic, normocephalic, normal inspection Eye exam: Present: normal appearance, PERRL, EOMI. Absent: scleral icterus, conjunctival injection, periorbital swelling ENT exam: Present: normal exam, normal oropharynx, mucous membranes moist Neck exam: Present: normal inspection, full ROM. Absent: tenderness, meningismus, lymphadenopathy Respiratory exam: Present: normal lung sounds bilaterally. Absent: respiratory distress, wheezes, rales, rhonchi, stridor Cardiovascular Exam: Present: regular rate, normal rhythm, normal heart sounds. Absent: systolic murmur, diastolic murmur, rubs, gallop, clicks GI/Abdominal exam: Present: soft, tenderness, normal bowel sounds. Absent: distended, guarding, rebound, rigid Neurological exam: Present: alert, oriented X3, CN II-XII intact Skin exam: Present: warm, dry, intact, normal color. Absent: rash Course Vital Signs 04/07/19 17:03 Temperature 98 F Pulse Rate 59 L Respiratory 20 Rate Blood Pressure 145/63 O2 Sat by Pulse 97 Oximetry Medical Decision Making - Medical Decision Making 84-year-old male presented for possible bowel obstruction. CT is obtained which shows no evidence of obstruction, does reveal mild constipation. Patient's labwork showed mild dehydration she was hydrated otherwise unremarkable. Patient will be discharged advised follow-up PCP return parameters were discussed. - Lab Data Result diagrams: 04/07/19 18:38 04/07/19 18:38 Lab Results 04/07/19 04/07/19 Range/Units 18:38 18:38 WBC 8.2 (3.8-10.6) k/uL RBC 3.58 L (3.80-5.40) m/uL Hgb 10.6 L (11.4-16.0) gm/dL Hct 34.1 (34.0-46.0) % MCV 95.2 (80.0-100.0) fL MCH 29.6 (25.0-35.0) pg MCHC 31.1 (31.0-37.0) g/dL RDW 14.3 (11.5-15.5) % Plt Count 233 (150-450) k/uL Neutrophils % 83 % Lymphocytes % 6 % Monocytes % 6 % Eosinophils % 1 % Basophils % 2 % Neutrophils # 6.8 (1.3-7.7) k/uL Lymphocytes # 0.5 L (1.0-4.8) k/uL Monocytes # 0.5 (0-1.0) k/uL Eosinophils # 0.1 (0-0.7) k/uL Basophils # 0.2 (0-0.2) k/uL Sodium 129 L (137-145) mmol/L Potassium 4.3 (3.5-5.1) mmol/L Chloride 86 L (98-107) mmol/L Carbon Dioxide 36 H (22-30) mmol/L Anion Gap 7 mmol/L BUN 18 H (7-17) mg/dL Creatinine 0.86 (0.52-1.04) mg/dL Est GFR (CKD-EPI)AfAm 72 (>60 ml/min/1.73 sqM) Est GFR (CKD-EPI)NonAf 62 (>60 ml/min/1.73 sqM) Glucose 90 (74-99) mg/dL Calcium 9.4 (8.4-10.2) mg/dL Magnesium 1.5 L (1.6-2.3) mg/dL Total Bilirubin 1.0 (0.2-1.3) mg/dL AST 29 (14-36) U/L ALT 28 (9-52) U/L Alkaline Phosphatase 93 (38-126) U/L Total Protein 7.1 (6.3-8.2) g/dL Albumin 3.6 (3.5-5.0) g/dL Amylase 47 (30-110) U/L Lipase 17 L (23-300) U/L Disposition Clinical Impression: Constipation Disposition: HOME SELF-CARE Condition: Stable Instructions (If sedation given, give patient instructions): Constipation (ED) Additional Instructions: Please return to the Emergency Department if symptoms worsen or any other concerns. Is patient prescribed a controlled substance at d/c from ED?: No Referrals: Adam Huntley DO [Primary Care Provider] - 1-2 days Time of Disposition: 20:12
[2019-04-07 18:50] LABS: Basophils # (A) 0.2 k/uL (0-0.2); Basophils % (A) 2 %; Eosinophils # (A) 0.1 k/uL (0-0.7); Eosinophils % (A) 1 %; HCT 34.1 % (34.0-46.0); HGB 10.6 gm/dL (11.4-16.0); Lymphocytes # (A) 0.5 k/uL (1.0-4.8); Lymphocytes % (A) 6 %; MCH 29.6 pg (25.0-35.0); MCHC 31.1 g/dL (31.0-37.0); MCV 95.2 fL (80.0-100.0); Monocytes # (A) 0.5 k/uL (0-1.0); Monocytes % (A) 6 %; Neutrophils # (A) 6.8 k/uL (1.3-7.7); Neutrophils % (A) 83 %; Platelet Count 233 k/uL (150-450); RBC 3.58 m/uL (3.80-5.40); RDW 14.3 % (11.5-15.5); WBC 8.2 k/uL (3.8-10.6)
[2019-04-07 18:58] LABS: Albumin 3.6 g/dL (3.5-5.0); Calcium 9.4 mg/dL (8.4-10.2); Magnesium 1.5 mg/dL (1.6-2.3); Potassium 4.3 mmol/L (3.5-5.1); Total Protein 7.1 g/dL (6.3-8.2)
--- NOTE | 2019-04-07 20:02 | CT ---
EXAMINATION TYPE: CT abdomen pelvis wo con DATE OF EXAM: 04/07/2019 COMPARISON: 09/30/2018 HISTORY: abdominal pain, constipation CT DLP: 388.4 mGycm Automated exposure control for dose reduction was used. TECHNIQUE: Helical acquisition of images was performed from the lung bases through the pelvis. FINDINGS: There is extensive interstitial fibrotic changes in the lower lung cornell. Heart is enlarged. There i s coronary artery calcification. Liver shows no focal defect. There is increased density in the gallbladder that could relate to galls tones. Spleen is intact. There is extensive vascular calcification. There is no pericardial effusion. The bile ducts are not dilated. There is no evidence of pancreatic mass. There is no adrenal mass. Ki dneys have normal size. There is no hydronephrosis. Abdominal aorta is atheromatous. There is no retr operitoneal adenopathy. Bladder distends smoothly. There is retained fecal material in the large javier l. There is no mesenteric edema. There is no ascites. There is no sign of free air. I see no sign of a mechanical bowel obstruction. There is compression deformity of multiple vertebra including L5 and L3 and T12 up to 80% loss of hei ght. L3 fracture appears acute. Bony pelvis appears intact. Hip joints are intact. IMPRESSION: MILD CONSTIPATION. NO EVIDENCE OF A BOWEL OBSTRUCTION. NO RENAL OBSTRUCTION. EXTENSIVE FIBROTIC JACKSON ES IN THE LOWER LOBES UNCHANGED. ACUTE COMPRESSION FRACTURE OF L3 THAT IS A CHANGE COMPARED TO OLD EXAM. THERE IS PROGRESSION OF THE T 12 FRACTURE COMPARED TO OLD EXAM.
[2019-04-07 20:11] VITALS: BP 101/59; PULSE 78; RESP 16
[2019-04-07] MEDS ORDERED: DOCUSATE 283 MG/5 ML ENEMA RECTAL STA ×2 (20:26→20:27)
[2019-04-07] MEDS ORDERED: MAGNESIUM CITRATE 296 ML BOTTLE PO ONE (20:26)
[2019-04-07 20:52] VITALS: TEMP 97.1
== END 2019-04-07 20:53 | disposition home or self-care (01) ==
LOC: EC 17:01
DX: K59.00 Constipation, unspecified (principal); E86.0 Dehydration; I48.91 Unspecified atrial fibrillation; E11.9 Type 2 diabetes mellitus without complications; G40.909 Epilepsy, unspecified, not intractable, without status epilepticus; G89.29 Other chronic pain; M54.9 Dorsalgia, unspecified; M48.54XA Collapsed vertebra, not elsewhere classified, thoracic region, initial encounter for fracture; Z79.891 Long term (current) use of opiate analgesic; Z79.01 Long term (current) use of anticoagulants; Z79.899 Other long term (current) drug therapy
CPT/HCPCS: 36415; 74176; 80053; 82150; 83690; 83735; 85025; 96360; 96361; 99284

== ENCOUNTER → 2019-04-07 | Outpatient (CLI) | payer MEDICARE, BC ==
--- NOTE | 2019-04-07 16:00 | XR ---
"EXAMINATION TYPE: XR abdomen 1V DATE OF EXAM: 04/07/2019 COMPARISON: NONE HISTORY: Constipation TECHNIQUE: One view abdominal series FINDINGS: The osseous structures are intact. The bowel gas pattern is nonspecific. Air-fluid levels are noted. There is seen within the rectum. Scoliosis with degenerative change of the spine. Vascular calcifica tions noted. Grossly lung bases. Arthropathy of the hips. Diffuse osteopenia. IMPRESSION: 1. There are multiple air-fluid levels which could been the basis of an ileus, enteritis or partial o bstruction. Correlate clinically. Retained debris in the left colon is noted. A Daniels level critical message alert has been initiated for MAYA Oliveros via the [employer] | Critical Results System on 04/07/2019 3:57 PM. This message alert has been sent to MAYA Oliveros via the preferences provided by the clinician for the receipt of Radiology Critical Fin elly. Message ID [id number]."
== END | disposition home or self-care (01) ==
LOC: RADXRYALE 15:30
PROVIDERS: ATTEND Physician Assistant Medical
DX: K63.89 Other specified diseases of intestine (principal)
CPT/HCPCS: 74018

== ENCOUNTER 2019-04-09 01:18 | Inpatient (IN) | payer MEDICARE, BC ==
--- NOTE | 2019-04-09 01:55 | ED ---
Abdominal Pain HPI - General Chief Complaint: Abdominal Pain Stated Complaint: Constipation Time Seen by Provider: 04/09/19 01:24 Source: EMS Mode of arrival: EMS Limitations: no limitations - History of Present Illness Initial Comments: Patient is an 84-year-old woman who presents with complaint that she is having migratory, cramping abdominal pains. She states she believes is related constipation as it has been approximately 2 weeks since she had what she would consider be a normal bowel movement. Patient was seen here a little over 24 hours ago for same complaint. She states she was sent home with a bottle of something to drink as well as an enema. She took these medicines at home but did not pass much stool. Only 2 small pellets of stool. She has not had any blood. There is no vomiting. MD Complaint: abdominal pain -: days(s) Location: diffuse Migration to: no migration Severity: moderate Quality: cramping Consistency: colicky Improves With: nothing Worsens With: nothing Associated Symptoms: constipation - Related Data Home Medications Medication Instructions Recorded Confirmed Carvedilol [Coreg] 6.25 mg PO BID 10/05/18 04/01/19 Cholecalciferol [Vitamin D3 (25 1,000 unit PO DAILY 10/05/18 04/01/19 Mcg = 1000 Iu)] Lacosamide [Vimpat] 50 mg PO Q12H 10/05/18 04/01/19 Ondansetron [Zofran ODT] 4 mg PO TID PRN 10/05/18 04/01/19 Pantoprazole [Protonix] 40 mg PO DAILY 10/05/18 04/01/19 levETIRAcetam [Keppra Oral 1,000 mg PO BID 10/05/18 04/01/19 Solution] HYDROcodone/APAP 7.5-325MG [[place] 1 tab PO Q6H PRN 03/02/19 04/01/19 7.5-325] Lisinopril [Zestril] 20 mg PO BID 03/02/19 04/01/19 Amiodarone [Cordarone] 200 mg PO BID 04/01/19 04/01/19 Apixaban [Eliquis] 2.5 mg PO DAILY 04/01/19 04/01/19 Atorvastatin [Lipitor] 20 mg PO DAILY 04/01/19 04/01/19 Lactobacillus Acidophilus 1 tab PO DAILY 04/01/19 04/01/19 [Acidophilus] Nitroglycerin Sl Tabs [Nitrostat] 0.4 mg SUBLINGUAL Q5M PRN 04/01/19 04/01/19 amLODIPine [Norvasc] 2.5 mg PO DAILY 04/01/19 04/01/19 Previous Rx's Medication Instructions Recorded Lidocaine 5% Patch [Lidoderm 5% 1 patch TOPICAL DAILY #10 patch 04/02/19 Patch] metFORMIN HCL [Glucophage] 500 mg PO DAILY #0 04/02/19 Lactulose [Cephulac] 20 gm PO DAILY PRN #100 ml 04/03/19 Allergies Allergy/AdvReac Type Severity Reaction Status Date / Time phenytoin [From Dilantin] Allergy Anaphylaxis Verified 04/09/19 01:28 Review of Systems ROS Statement: Those systems with pertinent positive or pertinent negative responses have been documented in the HPI. ROS Other: All systems not noted in ROS Statement are negative. Constitutional: Denies: fever, chills Respiratory: Denies: cough, dyspnea Cardiovascular: Denies: chest pain, palpitations Gastrointestinal: Reports: as per HPI, abdominal pain, nausea, constipation. 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 Past Anesthesia/Blood Transfusion Reactions: No Reported Reaction Past Psychological History: No Psychological Hx Reported Smoking Status: Never smoker Past Alcohol Use History: None Reported Past Drug Use History: None Reported - Past Family History Daughter(s) Additional Family Medical History / Comment(s): arthritis General Exam Limitations: no limitations General appearance: alert, in no apparent distress Head exam: Present: atraumatic, normocephalic Eye exam: Present: normal appearance. Absent: scleral icterus, conjunctival injection ENT exam: Present: normal oropharynx Respiratory exam: Present: normal lung sounds bilaterally. Absent: respiratory distress, wheezes, rales, rhonchi, stridor Cardiovascular Exam: Present: normal rhythm, bradycardia, normal heart sounds. Absent: systolic murmur, diastolic murmur, rubs, gallop GI/Abdominal exam: Present: soft. Absent: distended, tenderness, guarding, rebound, rigid, mass Extremities exam: Present: normal inspection, normal capillary refill. Absent: pedal edema, calf tenderness Back exam: Present: normal inspection. Absent: CVA tenderness (R), CVA tenderness (L) Neurological exam: Present: alert Skin exam: Present: warm, dry, intact, normal color. Absent: rash Course Vital Signs 04/09/19 04/09/19 01:26 05:42 Temperature 97 F L 97.6 F Pulse Rate 55 L 57 L Respiratory 18 16 Rate Blood Pressure 123/78 143/56 O2 Sat by Pulse 97 95 Oximetry Medical Decision Making - Lab Data Result diagrams: 04/09/19 04:35 04/09/19 04:35 Lab Results 04/09/19 04/09/19 Range/Units 04:35 04:35 WBC 9.1 (3.8-10.6) k/uL RBC 2.95 L (3.80-5.40) m/uL Hgb 9.1 L D (11.4-16.0) gm/dL Hct 27.2 L (34.0-46.0) % MCV 92.2 (80.0-100.0) fL MCH 30.7 (25.0-35.0) pg MCHC 33.3 (31.0-37.0) g/dL RDW 14.2 (11.5-15.5) % Plt Count 200 (150-450) k/uL Neutrophils % 84 % Lymphocytes % 5 % Monocytes % 7 % Eosinophils % 2 % Basophils % 1 % Neutrophils # 7.6 (1.3-7.7) k/uL Lymphocytes # 0.4 L (1.0-4.8) k/uL Monocytes # 0.6 (0-1.0) k/uL Eosinophils # 0.2 (0-0.7) k/uL Basophils # 0.0 (0-0.2) k/uL Sodium 126 L (137-145) mmol/L Potassium 5.2 H (3.5-5.1) mmol/L Chloride 89 L (98-107) mmol/L Carbon Dioxide 29 (22-30) mmol/L Anion Gap 8 mmol/L BUN 21 H (7-17) mg/dL Creatinine 0.78 (0.52-1.04) mg/dL Est GFR (CKD-EPI)AfAm 81 (>60 ml/min/1.73 sqM) Est GFR (CKD-EPI)NonAf 70 (>60 ml/min/1.73 sqM) Glucose 90 (74-99) mg/dL Calcium 8.7 (8.4-10.2) mg/dL Total Bilirubin 1.7 H (0.2-1.3) mg/dL AST 56 H (14-36) U/L ALT 19 (9-52) U/L Alkaline Phosphatase 74 (38-126) U/L Total Protein 6.4 (6.3-8.2) g/dL Albumin 3.2 L (3.5-5.0) g/dL Disposition Clinical Impression: Traumatic compression fracture of T12 thoracic vertebra, Abdominal pain, Hyponatremia Disposition: ADMITTED IP TO THIS HOSP Condition: Poor Referrals: None,Stated [Primary Care Provider] - 1-2 days
[2019-04-09] MEDS ORDERED: ACETAMINOPHEN TAB 325 MG TAB PO STA (04:20)
[2019-04-09 04:43] LABS: Basophils % (A) 1 %; Eosinophils # (A) 0.2 k/uL (0-0.7); Eosinophils % (A) 2 %; HCT 27.2 % (34.0-46.0); Lymphocytes # (A) 0.4 k/uL (1.0-4.8); Lymphocytes % (A) 5 %; MCH 30.7 pg (25.0-35.0); MCHC 33.3 g/dL (31.0-37.0); MCV 92.2 fL (80.0-100.0); Mean Platelet Volume 6.8; Monocytes # (A) 0.6 k/uL (0-1.0); Monocytes % (A) 7 %; Neutrophils # (A) 7.6 k/uL (1.3-7.7); Neutrophils % (A) 84 %; Platelet Count 200 k/uL (150-450); RBC 2.95 m/uL (3.80-5.40); RDW 14.2 % (11.5-15.5); WBC 9.1 k/uL (3.8-10.6)
[2019-04-09 04:50] LABS: HGB 9.1 gm/dL (11.4-16.0)
[2019-04-09 04:52] LABS: Albumin 3.2 g/dL (3.5-5.0); Calcium 8.7 mg/dL (8.4-10.2); Total Bilirubin 1.7 mg/dL (0.2-1.3); Total Protein 6.4 g/dL (6.3-8.2)
[2019-04-09 04:53] LABS: Potassium 5.2 mmol/L (3.5-5.1)
[2019-04-09] MEDS ORDERED: ACETAMINOPHEN TAB 325 MG TAB PO PRN (05:45)
[2019-04-09] MEDS ORDERED: NALOXONE 0.4 MG/ML 1 ML VIAL IV PRN (05:45)
[2019-04-09] MEDS: SODIUM CHLORIDE 0.9% 1,000 ML IV SCH ×2 (06:38→17:14)
[2019-04-09] MEDS ORDERED: LACTULOSE 20 GM/30 ML CUP PO PRN (10:24)
[2019-04-09] MEDS: HYDROcodone/APAP 5-325MG 1 EACH TAB PO PRN ×2 (12:28→19:52)
[2019-04-09] MEDS: PANTOPRAZOLE 40 MG TABLET PO SCH (12:28)
[2019-04-09] MEDS: AMIODARONE 200 MG TAB PO SCH ×2 (12:30→20:47)
[2019-04-09] MEDS: LACOSAMIDE 50 MG TABLET PO SCH ×2 (12:34→20:31)
[2019-04-09 14:57] VITALS: BMI 20.1
[2019-04-09 16:32] LABS: Calcium 8.5 mg/dL (8.4-10.2); Potassium 3.7 mmol/L (3.5-5.1)
[2019-04-09] MEDS: CARVEDILOL 6.25 MG TAB PO SCH (17:13)
[2019-04-09] MEDS: APIXABAN 2.5 MG TABLET PO SCH (20:31)
[2019-04-09] MEDS: levETIRAcetam ORAL SOLN 500 MG/5 ML CUP PO SCH (20:32)
--- NOTE | 2019-04-09 21:23 | P.HPIM ---
History of Present Illness H&P Date: 04/09/19 Chief Complaint: Back pain and abdominal pain Patient is a 84-year-old female with a known history of paroxysmal atrial fibrillation on anticoagulation, Hypertension, Diabetes type 2, Seizure disorder and history of brain aneurysm, T12 fracture with a brace placement previous admission came to ER with the complaints of abdominal pain. Patient was sent to ER by her PCP due to concern for obstruction. Patient has been having constipation for the past 2 weeks on and off. Patient was initially seen in the ER and had CT abdomen and pelvis which showed mild constipation no evidence of obstruction. Patient was also noted to have L3 compression fracture. Patient does take Guy for chronic back pain and compression fracture. Patient was seen by orthopedic surgery and back brace was applied previously. Patient was sent home and presented back to the hospital. Patient says that she took the medication given for constipation but did not pass much stool. Only 2 small pellets of stool. Denied any blood in the stool. No nausea no vomiting. Denied any fever or chills. No chest pain or shortness of breath. Patient is unable to take care of herself at home. Review of Systems Constitutional: Patient denies any fever or chills . No generalized weakness or weight loss. Abdomen: Patient denied nausea vomiting and diarrhea . Patient does have abdominal pain and constipation. Cardiovascular: Patient denies any chest pain or short of breath no palpitations. Respiratory: patient denied any cough is from production. No shortness of breath Neurologic: Patient denied any numbness or tingling headache. Musculoskeletal: Patient denies any complaints of joint swelling or deformity. Lower back pain Skin: Negative Psychiatric: Negative Endocrine: No heat or cold intolerance. No recent weight gain. Genitourinary: No dysuria or hematuria. 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 Past Anesthesia/Blood Transfusion Reactions: No Reported Reaction Past Psychological History: No Psychological Hx Reported Smoking Status: Never smoker Past Alcohol Use History: None Reported Past Drug Use History: None Reported - Past Family History Daughter(s) Additional Family Medical History / Comment(s): arthritis Father Family Medical History: Myocardial Infarction ([place]) Additional Family Medical History / Comment(s): Father of a [place] at the age of 51 yrs. Mother Family Medical History: Respiratory Disorder Additional Family Medical History / Comment(s): Mother of TB at the age of 34 yrs. Medications and Allergies Home Medications Medication Instructions Recorded Confirmed Type Carvedilol [Coreg] 6.25 mg PO BID 10/05/18 04/09/19 History Cholecalciferol [Vitamin D3 (25 1,000 unit PO DAILY 10/05/18 04/09/19 History Mcg = 1000 Iu)] Lacosamide [Vimpat] 50 mg PO Q12H 10/05/18 04/09/19 History Ondansetron [Zofran ODT] 4 mg PO TID PRN 10/05/18 04/09/19 History Pantoprazole [Protonix] 40 mg PO DAILY 10/05/18 04/09/19 History levETIRAcetam [Keppra Oral 1,000 mg PO BID 10/05/18 04/09/19 History Solution] HYDROcodone/APAP 7.5-325MG [[place] 1 tab PO Q6H PRN 03/02/19 04/09/19 History 7.5-325] Lisinopril [Zestril] 20 mg PO BID 03/02/19 04/09/19 History Amiodarone [Cordarone] 200 mg PO BID 04/01/19 04/09/19 History Apixaban [Eliquis] 2.5 mg PO BID 04/01/19 04/09/19 History Atorvastatin [Lipitor] 20 mg PO DAILY 04/01/19 04/09/19 History Lactobacillus Acidophilus 1 tab PO DAILY 04/01/19 04/09/19 History [Acidophilus] Nitroglycerin Sl Tabs [Nitrostat] 0.4 mg SUBLINGUAL Q5M PRN 04/01/19 04/09/19 History amLODIPine [Norvasc] 2.5 mg PO DAILY 04/01/19 04/09/19 History Lidocaine 5% Patch [Lidoderm 5% 1 patch TOPICAL DAILY #10 patch 04/02/19 04/09/19 Rx Patch] metFORMIN HCL [Glucophage] 500 mg PO DAILY #0 04/02/19 04/09/19 Rx Lactulose [Cephulac] 20 gm PO DAILY PRN #100 ml 04/03/19 04/09/19 Rx Allergies Allergy/AdvReac Type Severity Reaction Status Date / Time phenytoin [From Dilantin] Allergy Anaphylaxis Verified 04/09/19 10:07 Physical Exam Vitals: Vital Signs Temp Pulse Resp BP Pulse Ox 04/09/19 06:33 56 L 16 146/68 96 04/09/19 05:42 97.6 F 57 L 16 143/56 95 04/09/19 01:26 97 F L 55 L 18 123/78 97 Intake and Output 04/08/19 04/09/19 04/09/19 22:59 06:59 14:59 Other: Weight 49.895 kg PHYSICAL EXAMINATION: Patient is lying in the bed comfortably, mild distress due to pain, awake alert and oriented.. HEENT: Normocephalic. Neck is supple. Pupils reactive. Nostrils clear. Oral cavity is moist. Ears reveal no drainage. Neck reveals no JVD, carotid bruits, or thyromegaly. CHEST EXAMINATION: Trachea is central. Symmetrical expansion. Bibasilar diminished air entry. Lung cornell clear to auscultation and percussion. CARDIAC: Normal S1, S2 with no gallops. No murmurs ABDOMEN: Soft. Bowel sounds normal. No organomegaly. No abdominal bruits. Extremities: reveal no edema. No clubbing or cyanosis Neurologically awake, alert, oriented x3 with well-coordinated movements. No focal deficits noted Skin: No rash or skin lesions. Psychiatric: Coperative. Nonsuicidal Musculoskeletal: No joint swelling or deformity. Tenderness over lumbar spine and decreased range of motion.. Results CBC & Chem 7: 04/09/19 04:35 04/09/19 15:57 Labs: Abnormal Lab Results - Last 24 Hours (Table) 04/09/19 04/09/19 Range/Units 04:35 04:35 RBC 2.95 L (3.80-5.40) m/uL Hgb 9.1 L D (11.4-16.0) gm/dL Hct 27.2 L (34.0-46.0) % Lymphocytes # 0.4 L (1.0-4.8) k/uL Sodium 126 L (137-145) mmol/L Potassium 5.2 H (3.5-5.1) mmol/L Chloride 89 L (98-107) mmol/L BUN 21 H (7-17) mg/dL Total Bilirubin 1.7 H (0.2-1.3) mg/dL AST 56 H (14-36) U/L Albumin 3.2 L (3.5-5.0) g/dL Thrombosis Risk Factor Assmnt - DVT/VTE Prophylaxis DVT/VTE Prophylaxis: Pharmacologic Prophylaxis ordered Assessment and Plan Assessment: Acute on chronic low back pain secondary to L3 compression fracture and T12 compression fracture Abdominal pain with constipation. No obstruction as per CT Hypovolemic hyponatremia Paroxysmal atrial fibrillation on anticoagulation with Eliquis Hypertension Diabetes type 2 History of brain aneurysm Seizure disorder Gait dysfunction and generalized medical debility Patient is full code Plan: Patient will be continued on pain management. Stool softeners and laxatives for constipation. No evidence of obstruction as per CT. Continue with IV hydration and follow-up sodium level. Continue with back brace. Consider orthopedic surgery evaluation if continues to have pain. Continue with home medications. PTOT as tolerated. Patient may need rehab transfer. Prognosis is guarded with multiple medical problems and comorbid conditions. Time with Patient: Greater than 30
[2019-04-09] MEDS: MAGNESIUM SULFATE-D5W PMX 1 GM in DEXTROSE/WATER 1 100ML.BAG IVPB SCH (23:02)
[2019-04-10] MEDS: MAGNESIUM SULFATE-D5W PMX 1 GM in DEXTROSE/WATER 1 100ML.BAG IVPB SCH (00:08)
[2019-04-10] MEDS: SODIUM CHLORIDE 0.9% 1,000 ML IV SCH ×2 (04:05→15:07)
[2019-04-10] MEDS: levETIRAcetam ORAL SOLN 500 MG/5 ML CUP PO SCH ×2 (08:01→21:24)
[2019-04-10] MEDS: CHOLECALCIFEROL 1,000 UNIT TAB PO SCH (08:01)
[2019-04-10] MEDS: AMIODARONE 200 MG TAB PO SCH ×2 (08:02→21:24)
[2019-04-10] MEDS: ATORVASTATIN 20 MG TAB PO SCH (08:02)
[2019-04-10] MEDS: LACOSAMIDE 50 MG TABLET PO SCH ×2 (08:02→21:24)
[2019-04-10] MEDS: APIXABAN 2.5 MG TABLET PO SCH ×2 (08:02→21:24)
[2019-04-10] MEDS: amLODIPine 2.5 MG TAB PO SCH (08:02)
[2019-04-10] MEDS: HYDROcodone/APAP 5-325MG 1 EACH TAB PO PRN ×2 (08:02→13:03)
[2019-04-10] MEDS: PANTOPRAZOLE 40 MG TABLET PO SCH (08:02)
[2019-04-10] MEDS: CARVEDILOL 6.25 MG TAB PO SCH ×2 (08:02→16:26)
[2019-04-10] MEDS: LIDOCAINE 5% PATCH TOPICAL SCH (08:03)
--- NOTE | 2019-04-10 09:17 | P.CNOR ---
History of Present Illness - HPI Consult date: 04/10/19 History of present illness: This is an 84-year-old female who is admitted for abdominal pain and hyponatremia. Orthopedics is consulted due to back pain. Patient was seen on 04/07/2019 in the emergency room for stool impaction and compression fractures of T12, L3 and L5 were found on abdominal CT. Patient was discharged home at this time, but returned to the emergency room on 04/09/2019 for abdominal pain. Patient has been treated by Dr. Gutierres for T12, L3 and L5 thoracic and lumbar compression fractures in the past. Patient was most recently evaluated and treated with an LSO brace for L3 compression fracture on 04/02/2019. Patient denies any new injury, but reports continued pain in her back. Patient states that she does have her back brace with her. Patient states that when she was working on marching in place with physical therapy today she noticed some shooting pain down her legs. Patient states that this resolved with rest. Patient denies any numbness, tingling or weakness, shortness of breath or chest pain. Review of Systems See HPI. 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 Past Anesthesia/Blood Transfusion Reactions: No Reported Reaction Past Psychological History: No Psychological Hx Reported Smoking Status: Never smoker Past Alcohol Use History: None Reported Past Drug Use History: None Reported - Past Family History Daughter(s) Family Medical History: Osteoarthritis (OA) Additional Family Medical History / Comment(s): arthritis Father Family Medical History: Myocardial Infarction (MO) Additional Family Medical History / Comment(s): Father of a MO at the age of 51 yrs. Mother Family Medical History: Respiratory Disorder Additional Family Medical History / Comment(s): Mother of TB at the age of 34 yrs. Medications and Allergies Home Medications Medication Instructions Recorded Confirmed Type Carvedilol [Coreg] 6.25 mg PO BID 10/05/18 04/09/19 History Cholecalciferol [Vitamin D3 (25 1,000 unit PO DAILY 10/05/18 04/09/19 History Mcg = 1000 Iu)] Lacosamide [Vimpat] 50 mg PO Q12H 10/05/18 04/09/19 History Ondansetron [Zofran ODT] 4 mg PO TID PRN 10/05/18 04/09/19 History Pantoprazole [Protonix] 40 mg PO DAILY 10/05/18 04/09/19 History levETIRAcetam [Keppra Oral 1,000 mg PO BID 10/05/18 04/09/19 History Solution] HYDROcodone/APAP 7.5-325MG [[place] 1 tab PO Q6H PRN 03/02/19 04/09/19 History 7.5-325] Lisinopril [Zestril] 20 mg PO BID 03/02/19 04/09/19 History Amiodarone [Cordarone] 200 mg PO BID 04/01/19 04/09/19 History Apixaban [Eliquis] 2.5 mg PO BID 04/01/19 04/09/19 History Atorvastatin [Lipitor] 20 mg PO DAILY 04/01/19 04/09/19 History Lactobacillus Acidophilus 1 tab PO DAILY 04/01/19 04/09/19 History [Acidophilus] Nitroglycerin Sl Tabs [Nitrostat] 0.4 mg SUBLINGUAL Q5M PRN 04/01/19 04/09/19 History amLODIPine [Norvasc] 2.5 mg PO DAILY 04/01/19 04/09/19 History Lidocaine 5% Patch [Lidoderm 5% 1 patch TOPICAL DAILY #10 patch 04/02/19 04/09/19 Rx Patch] metFORMIN HCL [Glucophage] 500 mg PO DAILY #0 04/02/19 04/09/19 Rx Lactulose [Cephulac] 20 gm PO DAILY PRN #100 ml 04/03/19 04/09/19 Rx Allergies Allergy/AdvReac Type Severity Reaction Status Date / Time phenytoin [From Dilantin] Allergy Anaphylaxis Verified 04/09/19 10:07 Physical Examination On exam patient is lying comfortably in bed in no acute distress. Patient is alert and oriented 3. There is mild tenderness to palpation along the thoracic and lumbar midlines. There is no swelling, erythema, ecchymosis, or step-off. Kyphosis of the spine noted. Patient has good range of motion of bilateral lower extremities. 5/5 strength of bilateral lower extremities. EHL intact bilaterally. Sensation intact. Neurovascular status to telemetry status are intact. Results A CT of the abdomen and pelvis dated 04/07/2019 shows compression deformity of multiple vertebrae including L5, L3 and T12 up to 80% loss of height. L3 fracture appears acute. Bony pelvis appears intact. Hip joints are intact. Mild constipation. No evidence of a bowel obstruction. No renal obstruction. Extensive fibrotic changes in the lower lobes unchanged. - Labs Labs: Abnormal Lab Results - Last 24 Hours (Table) 04/09/19 Range/Units 15:57 Sodium 129 L (137-145) mmol/L Chloride 88 L (98-107) mmol/L Carbon Dioxide 38 H (22-30) mmol/L Glucose 113 H (74-99) mg/dL H & H 04/09/19 Range/Units 04:35 Hgb 9.1 L D (11.4-16.0) gm/dL Hct 27.2 L (34.0-46.0) % Result Diagrams: 04/09/19 04:35 04/09/19 15:57 Assessment and Plan (1) T12 compression fracture Current Visit: Yes Status: Acute Code(s): S22.080A - [place] COMPRESSION FRACTURE OF T11-T12 VERTEBRA, INIT SNOMED Code(s): 577149663 (2) Compression fracture of L3 vertebra Current Visit: No Status: Acute Code(s): S32.030A - [place] COMPRESSION FRACTURE OF THIRD LUMBAR VERTEBRA, INIT SNOMED Code(s): 772287650 (3) Compression fracture of L5 vertebra Current Visit: No Status: Acute Code(s): S32.050A - [place] COMPRESSION FRACTURE OF FIFTH LUMBAR VERTEBRA, INIT SNOMED Code(s): 802971095 Plan: 1. Imaging is reviewed revealing known compression fractures of T12, L3 and L5. Recommend continuation of LSO brace when sitting upright greater than 45, when out of bed and when ambulating. Brace may be removed for hygiene and when lying in bed. No surgical intervention is planned. Patient may follow up as an out patient.
[2019-04-11 02:18] LABS: Appearance,Urine Clear (Clear); Bilirubin,Urine Negative (Negative); Blood,Urine Negative (Negative); Color,Urine Yellow; Glucose,Urine (UA) 1+ (Negative); Ketones,Urine Negative (Negative); Leukocyte Esterase,Urine Negative (Negative); Nitrite,Urine Negative (Negative); Protein,Urine Trace (Negative); Specific Gravity,Urine 1.012 (1.001-1.035); Urobilinogen,Urine <2.0 mg/dL (<2.0)
[2019-04-11] MEDS: HYDROcodone/APAP 5-325MG 1 EACH TAB PO PRN ×2 (02:22→08:22)
[2019-04-11 07:50] LABS: Basophils % (A) 0 %; Eosinophils # (A) 0.1 k/uL (0-0.7); Eosinophils % (A) 1 %; HGB 8.8 gm/dL (11.4-16.0); Lymphocytes # (A) 0.6 k/uL (1.0-4.8); Lymphocytes % (A) 7 %; MCHC 31.3 g/dL (31.0-37.0); MCV 95.7 fL (80.0-100.0); Mean Platelet Volume 6.9; Monocytes # (A) 0.5 k/uL (0-1.0); Monocytes % (A) 6 %; Neutrophils # (A) 7.4 k/uL (1.3-7.7); Neutrophils % (A) 84 %; Platelet Count 243 k/uL (150-450); RBC 2.92 m/uL (3.80-5.40); RDW 14.4 % (11.5-15.5); WBC 8.8 k/uL (3.8-10.6)
[2019-04-11 08:00] LABS: ALT 28 U/L (9-52); AST 31 U/L (14-36); African American GFR (CKD) >90 (>60 ml/min/1.73 sqM); Albumin 2.8 g/dL (3.5-5.0); Alkaline Phosphatase 87 U/L (38-126); Anion Gap 6 mmol/L; Blood Urea Nitrogen 12 mg/dL (7-17); Calcium 8.4 mg/dL (8.4-10.2); Carbon Dioxide 33 mmol/L (22-30); Chloride 92 mmol/L (98-107); Glucose 98 mg/dL (74-99); Potassium 3.6 mmol/L (3.5-5.1); Sodium 131 mmol/L (137-145); Total Bilirubin 0.8 mg/dL (0.2-1.3); Total Protein 5.8 g/dL (6.3-8.2)
[2019-04-11] MEDS: CARVEDILOL 6.25 MG TAB PO SCH ×2 (08:21→16:43)
[2019-04-11] MEDS: AMIODARONE 200 MG TAB PO SCH ×2 (08:21→21:14)
[2019-04-11] MEDS: amLODIPine 2.5 MG TAB PO SCH (08:21)
[2019-04-11] MEDS: CHOLECALCIFEROL 1,000 UNIT TAB PO SCH (08:21)
[2019-04-11] MEDS: levETIRAcetam ORAL SOLN 500 MG/5 ML CUP PO SCH ×2 (08:21→21:56)
[2019-04-11] MEDS: LACOSAMIDE 50 MG TABLET PO SCH ×2 (08:21→21:14)
[2019-04-11] MEDS: APIXABAN 2.5 MG TABLET PO SCH ×2 (08:21→21:14)
[2019-04-11] MEDS: ATORVASTATIN 20 MG TAB PO SCH (08:21)
[2019-04-11] MEDS: PANTOPRAZOLE 40 MG TABLET PO SCH (08:21)
[2019-04-11] MEDS: LIDOCAINE 5% PATCH TOPICAL SCH (10:13)
[2019-04-11] MEDS: SODIUM CHLORIDE 0.9% 1,000 ML IV SCH (11:16)
--- NOTE | 2019-04-12 00:55 | P.PN ---
Subjective Progress Note Date: 04/10/19 Principal diagnosis: Acute on chronic back pain with compression fractures Hyponatremia Patient is a 84-year-old female with a known history of paroxysmal atrial fibrillation on anticoagulation, Hypertension, Diabetes type 2, Seizure disorder and history of brain aneurysm, T12 fracture with a brace placement previous admission came to ER with the complaints of abdominal pain. Patient was sent to ER by her PCP due to concern for obstruction. Patient has been having constip ation for the past 2 weeks on and off. Patient was initially seen in the ER and had CT abdomen and pelvis which showed mild constipation no evidence of obstruction. Patient was also noted to have L3 compression fracture. Patient does take [place] for chronic back pain and compression fracture. Patient was seen by orthopedic surgery and back brace was applied previously. Patient was sent home and presented back to the hospital. Patient says that she took the medication given for constipation but did not pass much stool. Only 2 small pellets of stool. Denied any blood in the stool. No nausea no vomiting. Denied any fever or chills. No chest pain or shortness of breath. Patient is unable to take care of herself at home. 04.10 Patient is lying in the bed comfortably. Pain is controlled. Sodium level is improving slowly. Patient is tolerating oral diet. Patient was seen by orthopedic surgery and wants to continue back brace is awake she is out of bed. No fever no chills. Continue PT OT as she can tolerate. Patient may need rehab transfer. Current medications reviewed. Objective - Vital Signs Vital signs: Vital Signs Temp 97.4 F L 04/10/19 15:00 Pulse 50 L 04/10/19 15:00 Resp 18 04/10/19 15:00 BP 132/62 04/10/19 15:00 Pulse Ox 95 04/10/19 15:00 Intake & Output 04/10/19 04/10/19 04/11/19 06:59 18:59 06:59 Intake Total 1300 Balance 1300 Intake: IV 400 Sodium Chloride 0.9% 1, 400 000 ml @ 50 mls/hr IV . Q20H EMILIANA Rx#:[id number] Oral 900 Other: # Voids 4 1 - Exam PHYSICAL EXAMINATION: Patient is lying in the bed comfortably, mild distress due to pain, awake alert and oriented.. HEENT: Normocephalic. Neck is supple. Pupils reactive. Nostrils clear. Oral cavity is moist. Ears reveal no drainage. Neck reveals no JVD, carotid bruits, or thyromegaly. CHEST EXAMINATION: Trachea is central. Symmetrical expansion. Bibasilar diminished air entry. Lung cornell clear to auscultation and percussion. CARDIAC: Normal S1, S2 with no gallops. No murmurs ABDOMEN: Soft. Bowel sounds normal. No organomegaly. No abdominal bruits. Extremities: reveal no edema. No clubbing or cyanosis Neurologically awake, alert, oriented x3 with well-coordinated movements. No focal deficits noted Skin: No rash or skin lesions. Psychiatric: Coperative. Nonsuicidal Musculoskeletal: No joint swelling or deformity. Tenderness over lumbar spine and decreased range of motion.. - Labs CBC & Chem 7: 04/11/19 07:06 04/11/19 07:06 Assessment and Plan Assessment: Acute on chronic low back pain secondary to L3 compression fracture and T12 compression fracture Abdominal pain with constipation. No obstruction as per CT. Patient did have a bowel movement. Hypovolemic hyponatremia. Improving slowly. Paroxysmal atrial fibrillation on anticoagulation with Eliquis Hypertension Diabetes type 2 History of brain aneurysm Seizure disorder Gait dysfunction and generalized medical debility Patient is full code Plan: Patient will be continued on pain management. Stool softeners and laxatives for constipation. No evidence of obstruction as per CT. Continue with IV hydration and follow-up sodium level. Continue with back brace. Consider orthopedic surgery evaluation if continues to have pain. Cont inue with home medications. PTOT as tolerated. Patient may need rehab transfer. Prognosis is guarded with multiple medical problems and comorbid conditions. Time with Patient: Greater than 30
--- NOTE | 2019-04-12 00:56 | P.PN ---
Subjective Progress Note Date: 04/11/19 Principal diagnosis: Acute on chronic back pain with compression fractures Hyponatremia Patient is a 84-year-old female with a known history of paroxysmal atrial fibrillation on anticoagulation, Hypertension, Diabetes type 2, Seizure disorder and history of brain aneurysm, T12 fracture with a brace placement previous admission came to ER with the complaints of abdominal pain. Patient was sent to ER by her PCP due to concern for obstruction. Patient has been having constip ation for the past 2 weeks on and off. Patient was initially seen in the ER and had CT abdomen and pelvis which showed mild constipation no evidence of obstruction. Patient was also noted to have L3 compression fracture. Patient does take [place] for chronic back pain and compression fracture. Patient was seen by orthopedic surgery and back brace was applied previously. Patient was sent home and presented back to the hospital. Patient says that she took the medication given for constipation but did not pass much stool. Only 2 small pellets of stool. Denied any blood in the stool. No nausea no vomiting. Denied any fever or chills. No chest pain or shortness of breath. Patient is unable to take care of herself at home. 04.10 Patient is lying in the bed comfortably. Pain is controlled. Sodium level is improving slowly. Patient is tolerating oral diet. Patient was seen by orthopedic surgery and wants to continue back brace is awake she is out of bed. No fever no chills. Continue PT OT as she can tolerate. Patient may need rehab transfer. 04/11/2090 Patient is more awake and oriented. Still having back pain but improved. Sodium level improved to 131 today. IV hydration has been discontinued due to lung condition and patient is requiring oxygen with another cannula. Continue to follow closely. Encourage incentive spirometry. PTOT to follow tomorrow. Possible rehab transfer. Discussed with her daughter at bedside in detail. Current medications reviewed. Objective - Vital Signs Vital signs: Vital Signs Temp 98.4 F 04/11/19 16:47 Pulse 76 04/11/19 13:10 Resp 16 04/11/19 13:10 BP 186/74 04/11/19 16:47 Pulse Ox 95 04/11/19 13:10 Intake & Output 04/11/19 04/11/19 04/12/19 06:59 18:59 06:59 Intake Total 500 Balance 500 Intake: Oral 500 Other: Voiding Method Bedside Commode Bedpan # Voids 1 4 # Bowel Movements 0 0 - Exam PHYSICAL EXAMINATION: Patient is lying in the bed comfortably, mild distress due to pain, awake alert and oriented.. HEENT: Normocephalic. Neck is supple. Pupils reactive. Nostrils clear. Oral cavity is moist. Ears reveal no drainage. Neck reveals no JVD, carotid bruits, or thyromegaly. CHEST EXAMINATION: Trachea is central. Symmetrical expansion. Bibasilar diminished air entry. Lung cornell clear to auscultation and percussion. CARDIAC: Normal S1, S2 with no gallops. No murmurs ABDOMEN: Soft. Bowel sounds normal. No organomegaly. No abdominal bruits. Extremities: reveal no edema. No clubbing or cyanosis Neurologically awake, alert, oriented x3 with well-coordinated movements. No focal deficits noted Skin: No rash or skin lesions. Psychiatric: Coperative. Nonsuicidal Musculoskeletal: No joint swelling or deformity. Tenderness over lumbar spine and decreased range of motion.. - Labs CBC & Chem 7: 04/11/19 07:06 04/11/19 07:06 Labs: Abnormal Lab Results - Last 24 Hours (Table) 04/11/19 04/11/19 04/11/19 Range/Units 02:00 07:06 07:06 RBC 2.92 L (3.80-5.40) m/uL Hgb 8.8 L (11.4-16.0) gm/dL Hct 28.0 L (34.0-46.0) % Lymphocytes # 0.6 L (1.0-4.8) k/uL Sodium 131 L (137-145) mmol/L Chloride 92 L (98-107) mmol/L Carbon Dioxide 33 H (22-30) mmol/L Total Protein 5.8 L (6.3-8.2) g/dL Albumin 2.8 L (3.5-5.0) g/dL Urine Protein Trace H (Negative) Urine Glucose (UA) 1+ H (Negative) Microbiology - Last 24 Hours (Table) 04/11/19 02:00 Urine Culture - Preliminary Urine,Voided Assessment and Plan Assessment: Acute on chronic low back pain secondary to L3 compression fracture and T12 compression fracture Abdominal pain with constipation. No obstruction as per CT. Patient did have a bowel movement. Hypovolemic hyponatremia. Improving slowly. Paroxysmal atrial fibrillation on anticoagulation with Eliquis Hypertension Diabetes type 2 History of brain aneurysm Seizure disorder Gait dysfunction and generalized medical debility Patient is full code Plan: Patient will be continued on pain management. Stool softeners and laxatives for constipation. No evidence of obstruction as per CT. Continue with IV hydration and follow-up sodium level. Continue with back brace. Consider orthopedic surgery evaluation if continues to have pain. Continue with home medications. PTOT as tolerated. Patient may need rehab transfer. Prognosis is guarded with multiple medical problems and comorbid conditions. Time with Patient: Greater than 30
[2019-04-12] MEDS: HYDROcodone/APAP 5-325MG 1 EACH TAB PO PRN ×2 (02:34→07:58)
[2019-04-12 07:48] VITALS: BP 152/57; PULSE 67; RESP 12; TEMP 98.3
[2019-04-12] MEDS: CHOLECALCIFEROL 1,000 UNIT TAB PO SCH (07:51)
[2019-04-12] MEDS: APIXABAN 2.5 MG TABLET PO SCH (07:51)
[2019-04-12] MEDS: ATORVASTATIN 20 MG TAB PO SCH (07:51)
[2019-04-12] MEDS: AMIODARONE 200 MG TAB PO SCH (07:51)
[2019-04-12] MEDS: LACOSAMIDE 50 MG TABLET PO SCH (07:51)
[2019-04-12] MEDS: amLODIPine 2.5 MG TAB PO SCH (07:51)
[2019-04-12] MEDS: CARVEDILOL 6.25 MG TAB PO SCH (07:51)
[2019-04-12] MEDS: PANTOPRAZOLE 40 MG TABLET PO SCH (07:51)
[2019-04-12] MEDS: LIDOCAINE 5% PATCH TOPICAL SCH (07:52)
[2019-04-12 08:04] LABS: Basophils # (A) 0.1 k/uL (0-0.2); Basophils % (A) 1 %; Eosinophils % (A) 0 %; HCT 27.5 % (34.0-46.0); HGB 8.7 gm/dL (11.4-16.0); Lymphocytes # (A) 0.4 k/uL (1.0-4.8); Lymphocytes % (A) 4 %; MCH 29.9 pg (25.0-35.0); MCHC 31.5 g/dL (31.0-37.0); MCV 94.9 fL (80.0-100.0); Monocytes # (A) 0.5 k/uL (0-1.0); Monocytes % (A) 5 %; Neutrophils # (A) 7.9 k/uL (1.3-7.7); Neutrophils % (A) 87 %; Platelet Count 229 k/uL (150-450); RDW 14.5 % (11.5-15.5); WBC 9.1 k/uL (3.8-10.6)
[2019-04-12 08:11] LABS: African American GFR (CKD) >90 (>60 ml/min/1.73 sqM); Anion Gap 3 mmol/L; Blood Urea Nitrogen 9 mg/dL (7-17); Calcium 8.5 mg/dL (8.4-10.2); Carbon Dioxide 38 mmol/L (22-30); Chloride 91 mmol/L (98-107); Glucose 86 mg/dL (74-99); Potassium 3.6 mmol/L (3.5-5.1); Sodium 132 mmol/L (137-145)
[2019-04-12] MEDS: levETIRAcetam ORAL SOLN 500 MG/5 ML CUP PO SCH (08:21)
[2019-04-12] MEDS ORDERED: FUROSEMIDE 10 MG/ML 2 ML VIAL IV STA (11:27)
[2019-04-12] MEDS ORDERED: POTASSIUM CHLORIDE ER 20 MEQ TAB.ER PO STA (11:28)
--- NOTE | 2019-04-12 11:52 | XR ---
EXAMINATION TYPE: XR chest 1V DATE OF EXAM: 04/12/2019 COMPARISON: 04/02/2019 HISTORY: Shortness of breath TECHNIQUE: Single frontal view of the chest is obtained. FINDINGS: Diffuse interstitial pattern with small right effusion and pleural based thickening. Use o steopenia and arthropathy shoulders. Atherosclerotic change aorta. Coarsened interstitial pattern.. IMPRESSION: 1. Coarsened interstitial pattern correlate for chronic interstitial lung disease. 2. Small right pleural effusion and pleural-based thickening. Underlying infiltrate not excluded.
--- NOTE | 2019-04-20 23:03 | P.DS ---
Providers Date of admission: 04/09/19 05:46 Expected date of discharge: 04/12/19 Attending physician: Emilie De La Torre Consults: 04/09/19 18:46 Consult Physician Routine Consulting Provider: Kalli Gutierres Consult Reason/Comments: spine fracture Do you want consulting provider notified?: Yes Primary care physician: Stated None Hospital Course: Discharge diagnosis Acute on chronic low back pain secondary to L3 compression fracture and T12 compression fracture Abdominal pain with constipation. No obstruction as per CT. Patient did have a bowel movement. Hypovolemic hyponatremia. Improving slowly. Paroxysmal atrial fibrillation on anticoagulation with Eliquis Hypertension Diabetes type 2 History of brain aneurysm Seizure disorder Gait dysfunction and generalized medical debility Patient is full code Hospital course Patient is a 84-year-old female with a known history of paroxysmal atrial fibrillation on anticoagulation, Hypertension, Diabetes type 2, Seizure disorder and history of brain aneurysm, T12 fracture with a brace placement previous admission came to ER with the complaints of abdominal pain. Patient was sent to ER by her PCP due to concern for obstruction. Patient has been having constipation for the past 2 weeks on and off. Patient was initially seen in the ER and had CT abdomen and pelvis which showed mild constipation no evidence of obstruction. Patient was also noted to have L3 compression fracture. Patient does take [place] for chronic back pain and compression fracture. Patient was seen by orthopedic surgery and back brace was applied previously. Patient was sent home and presented back to the hospital. Patient says that she took the medication given for constipation but did not pass much stool. Only 2 small pellets of stool. Denied any blood in the stool. No nausea no vomiting. Denied any fever or chills. No chest pain or shortness of breath. Patient is unable to take care of herself at home. 04.10 Patient is lying in the bed comfortably. Pain is controlled. Sodium level is improving slowly. Patient is tolerating oral diet. Patient was seen by orthopedic surgery and wants to continue back brace is awake she is out of bed. No fever no chills. Continue PT OT as she can tolerate. Patient may need rehab transfer. 04/11/2090 Patient is more awake and oriented. Still having back pain but improved. Sodium level improved to 131 today. IV hydration has been discontinued due to lung condition and patient is requiring oxygen with another cannula. Continue to follow closely. Encourage incentive spirometry. PTOT to follow tomorrow. Possible rehab transfer. Discussed with her daughter at bedside in detail. 04/12/2019 Patient is awake and oriented. Back pain improved. Sodium level improved as well. Patient is tolerating oral diet slowly. Patient does use oxygen at home in the night as needed. PTOT is following. Family wants the patient to be discharged home with home physical therapy. Continue with back brace with walking, can be removed while in bed. Discharge vitals reviewed PHYSICAL EXAMINATION: Patient is lying in the bed comfortably, mild distress due to pain, awake alert and oriented.. HEENT: Normocephalic. Neck is supple. Pupils reactive. Nostrils clear. Oral cavity is moist. Ears reveal no drainage. Neck reveals no JVD, carotid bruits, or thyromegaly. CHEST EXAMINATION: Trachea is central. Symmetrical expansion. Bibasilar diminished air entry. Lung cornell clear to auscultation and percussion. CARDIAC: Normal S1, S2 with no gallops. No murmurs ABDOMEN: Soft. Bowel sounds normal. No organomegaly. No abdominal bruits. Extremities: reveal no edema. No clubbing or cyanosis Neurologically awake, alert, oriented x3 with well-coordinated movements. No focal deficits noted Skin: No rash or skin lesions. Psychiatric: Coperative. Nonsuicidal Musculoskeletal: No joint swelling or deformity. Patient does have scoliosis. Tenderness over lumbar spine and decreased range of motion.. Patient Condition at Discharge: Poor Plan - Discharge Summary Discharge Rx Participant: No New Discharge Prescriptions: Continue levETIRAcetam [Keppra Oral Solution] 1,000 mg PO BID Ondansetron [Zofran ODT] 4 mg PO TID PRN PRN Reason: Nausea Carvedilol [Coreg] 6.25 mg PO BID Pantoprazole [Protonix] 40 mg PO DAILY Lacosamide [Vimpat] 50 mg PO Q12H Cholecalciferol [Vitamin D3 (25 Mcg = 1000 Iu)] 1,000 unit PO DAILY HYDROcodone/APAP 7.5-325MG [[place] 7.5-325] 1 tab PO Q6H PRN PRN Reason: Pain Lisinopril [Zestril] 20 mg PO BID Amiodarone [Cordarone] 200 mg PO BID amLODIPine [Norvasc] 2.5 mg PO DAILY Apixaban [Eliquis] 2.5 mg PO BID Atorvastatin [Lipitor] 20 mg PO DAILY Lactobacillus Acidophilus [Acidophilus] 1 tab PO DAILY Nitroglycerin Sl Tabs [Nitrostat] 0.4 mg SUBLINGUAL Q5M PRN PRN Reason: Chest Pain Lidocaine 5% Patch [Lidoderm 5% Patch] 1 patch TOPICAL DAILY #10 patch metFORMIN HCL [Glucophage] 500 mg PO DAILY #0 Lactulose [Cephulac] 20 gm PO DAILY PRN #100 ml PRN Reason: Constipation Discharge Medication List Carvedilol [Coreg] 6.25 mg PO BID 10/05/18 [History] Cholecalciferol [Vitamin D3 (25 Mcg = 1000 Iu)] 1,000 unit PO DAILY 10/05/18 [History] Lacosamide [Vimpat] 50 mg PO Q12H 10/05/18 [History] Ondansetron [Zofran ODT] 4 mg PO TID PRN 10/05/18 [History] Pantoprazole [Protonix] 40 mg PO DAILY 10/05/18 [History] levETIRAcetam [Keppra Oral Solution] 1,000 mg PO BID 10/05/18 [History] HYDROcodone/APAP 7.5-325MG [[place] 7.5-325] 1 tab PO Q6H PRN 03/02/19 [History] Lisinopril [Zestril] 20 mg PO BID 03/02/19 [History] Amiodarone [Cordarone] 200 mg PO BID 04/01/19 [History] Apixaban [Eliquis] 2.5 mg PO BID 04/01/19 [History] Atorvastatin [Lipitor] 20 mg PO DAILY 04/01/19 [History] Lactobacillus Acidophilus [Acidophilus] 1 tab PO DAILY 04/01/19 [History] Nitroglycerin Sl Tabs [Nitrostat] 0.4 mg SUBLINGUAL Q5M PRN 04/01/19 [History] amLODIPine [Norvasc] 2.5 mg PO DAILY 04/01/19 [History] Lidocaine 5% Patch [Lidoderm 5% Patch] 1 patch TOPICAL DAILY #10 patch 04/02/19 [Rx] metFORMIN HCL [Glucophage] 500 mg PO DAILY #0 04/02/19 [Rx] Lactulose [Cephulac] 20 gm PO DAILY PRN #100 ml 04/03/19 [Rx] Follow up Appointment(s)/Referral(s): Kalli Gutierres DO [Doctor of Osteopathic Medicine] - 04/20/19 1:30 pm None,Stated [Primary Care Provider] - 1-2 days [facility]idential [facility] [NON-STAFF] - Patient Instructions/Handouts: Chronic Back Pain (DC) Discharge Disposition: HOME WITH HOME HEALTH SERVICES
--- NOTE | 2019-04-21 08:56 | CDI ---
Documentation Clarification Form Date: 04/16/2019 5:35:00 AM From: Zeinab Delgado Phone: If you have a question about this query, please contact Kristin Cade Power Saw Operator at [phone] between 8am and 5pm Admit Date: 04/09/2019 5:46:00 AM Patient Name: Bess Jonas Visit Number: [id number] Discharge Date: 04/12/2019 2:34:00 PM ATTENTION: The Clinical Documentation Specialists (CDI) and [facility] Coding Staff appreciate your assistance in clarifying documentation. Please respond to the clarification below the line at the bottom and electronically sign. The CDI & [facility] Coding staff will review the response and follow-up if needed. Please note: Queries are made part of the Legal Health Record. If you have any questions, please contact the author of this message via ITS. Dr. Geoff Oseguera Patient has been diagnosed with what seems to be a new compression fracture at L3. Per Dr. Nenita louis patient has signficiant osteoporosis. T12 fracture is documented as being traumatic. per ER notes. Please clarify if new L3 fx is due to osteoporosis or traumatic. Patient history/risk factors: Osteoporosis, L3, L5 and T12 fractures Treatment: Surgery not recommended. Brace worn when out of bed In your professional opinion, please specify the following: L3 compression fracture is due to: Osteoporosis (specify type if known): Age related Disuse Drug induced Idiopathic Postmenopausal Postsurgical malabsorption Post-traumatic Other (please specify): Unable to determine Unable to determine MTDD
== END 2019-04-12 14:34 | disposition home health service (06) | DRG 543 ==
LOC: EC 01:18 → 4MS4W 05:46
PROVIDERS: ADMIT Hospitalist; ATTEND Hospitalist
DX: M48.56XA Collapsed vertebra, not elsewhere classified, lumbar region, initial encounter for fracture (principal); E87.1 Hypo-osmolality and hyponatremia; M81.0 Age-related osteoporosis without current pathological fracture; G89.29 Other chronic pain; E11.9 Type 2 diabetes mellitus without complications; E86.1 Hypovolemia; G40.909 Epilepsy, unspecified, not intractable, without status epilepticus; I10 Essential (primary) hypertension; I48.0 Paroxysmal atrial fibrillation; S22.089D Unspecified fracture of T11-T12 vertebra, subsequent encounter for fracture with routine healing; K56.41 Fecal impaction; Z79.01 Long term (current) use of anticoagulants; Z79.84 Long term (current) use of oral hypoglycemic drugs; Z79.899 Other long term (current) drug therapy; Z82.49 Family history of ischemic heart disease and other diseases of the circulatory system; Z82.61 Family history of arthritis; Z83.6 Family history of other diseases of the respiratory system; R26.9 Unspecified abnormalities of gait and mobility; Z86.79 Personal history of other diseases of the circulatory system; Z88.8 Allergy status to other drugs, medicaments and biological substances; Z99.81 Dependence on supplemental oxygen
CPT/HCPCS: 36415; 71045; 80048; 80053; 81003; 85025; 87077; 87086; 87186; 99285

== ENCOUNTER 2019-04-30 18:20 | Inpatient (IN) | payer MEDICARE, BC ==
[2019-04-30] MEDS ORDERED: ONDANSETRON 4 MG/2 ML VIAL IVP STA (19:08)
[2019-04-30] MEDS ORDERED: SODIUM CHLORIDE 0.9% 1,000 ML IV STA (19:08)
[2019-04-30 19:51] LABS: Albumin 3.5 g/dL (3.5-5.0); Calcium 8.5 mg/dL (8.4-10.2); Potassium 4.7 mmol/L (3.5-5.1); Total Bilirubin 1.3 mg/dL (0.2-1.3); Total Protein 7.3 g/dL (6.3-8.2)
[2019-04-30 20:01] LABS: Basophils # (A) 0.2 k/uL (0-0.2); Basophils % (A) 2 %; Eosinophils % (A) 0 %; HCT 28.9 % (34.0-46.0); HGB 9.5 gm/dL (11.4-16.0); Lymphocytes # (A) 0.2 k/uL (1.0-4.8); Lymphocytes % (A) 2 %; MCH 29.9 pg (25.0-35.0); MCHC 32.7 g/dL (31.0-37.0); MCV 91.5 fL (80.0-100.0); Mean Platelet Volume 6.9; Monocytes # (A) 0.6 k/uL (0-1.0); Monocytes % (A) 6 %; Neutrophils # (A) 8.6 k/uL (1.3-7.7); Neutrophils % (A) 88 %; RBC 3.16 m/uL (3.80-5.40); RDW 15.1 % (11.5-15.5); WBC 9.8 k/uL (3.8-10.6)
[2019-04-30 20:06] LABS: Platelet Count 527 k/uL (150-450)
--- NOTE | 2019-04-30 20:10 | ED ---
Abdominal Pain HPI - General Source: patient Mode of arrival: ambulatory Limitations: no limitations <Deborah Hodge - Last Filed: 04/30/19 23:26> <Tamir Givens - Last Filed: 05/03/19 07:50> - General Chief Complaint: Abdominal Pain Stated Complaint: Bowel obstruction Time Seen by Provider: 04/30/19 18:46 - History of Present Illness Initial Comments: 84-year-old female patient presents to the emergency department today for evaluation of the abdominal pain and vomiting. Symptoms have been present for the last 2-3 days. She was seen by her primary care physician and had x-ray performed which showed suspicion for bowel obstruction. Family members deny her ever having bowel obstruction in the past. Patient is reporting pain to the left lower quadrant. She denies fever or chills. Has been unable to keep down any food or fluids. Family is concerned she may be dehydrated. Patient is also reporting urinary and bowel incontinence. She also has chronic low back pain from known compression fractures. Patient states she is having pain radiating down the right leg and has difficulty with ambulation related to this. She denies numbness or tingling to the lower extremities. Denies saddle anesthesia. Patient denies any recent rash, shortness breath, chest pain, diarrhea, constipation, numbness, tingling, dizziness, weakness, hematuria, dysuria, urinary urgency, urinary frequency, headache, visual changes, or any other complaints. (Deborah Hodge) - Related Data Home Medications Medication Instructions Recorded Confirmed Carvedilol [Coreg] 6.25 mg PO BID 10/05/18 04/30/19 Cholecalciferol [Vitamin D3 (25 1,000 unit PO DAILY 10/05/18 04/30/19 Mcg = 1000 Iu)] Lacosamide [Vimpat] 50 mg PO Q12H 10/05/18 04/30/19 Pantoprazole [Protonix] 40 mg PO DAILY 10/05/18 04/30/19 levETIRAcetam [Keppra Oral 100 mg PO BID 10/05/18 04/30/19 Solution] HYDROcodone/APAP 7.5-325MG [Sabael 1 tab PO Q6H PRN 03/02/19 04/30/19 7.5-325] Lisinopril [Zestril] 20 mg PO BID 03/02/19 04/30/19 Amiodarone [Cordarone] 200 mg PO BID 04/01/19 04/30/19 Apixaban [Eliquis] 2.5 mg PO BID 04/01/19 04/30/19 Atorvastatin [Lipitor] 20 mg PO DAILY 04/01/19 04/30/19 Lactobacillus Acidophilus 1 tab PO DAILY 04/01/19 04/30/19 [Acidophilus] Nitroglycerin Sl Tabs [Nitrostat] 0.4 mg SUBLINGUAL Q5M PRN 04/01/19 04/30/19 amLODIPine [Norvasc] 2.5 mg PO DAILY 04/01/19 04/30/19 Acetaminophen [Tylenol Arthritis] 1,300 mg PO Q4H PRN 04/30/19 04/30/19 Famotidine [Pepcid] 20 mg PO BID 04/30/19 04/30/19 Lactulose [Cephulac] 10 gm PO DAILY PRN 04/30/19 04/30/19 Methyl Salicylate/Menthol 1 patch TOPICAL Q12H 04/30/19 04/30/19 [Salonpas Patch] Polyethylene Glycol 3350 [Miralax] 17 gm PO DAILY 04/30/19 04/30/19 Previous Rx's Medication Instructions Recorded Lidocaine 5% Patch [Lidoderm 5% 1 patch TOPICAL DAILY #10 patch 04/02/19 Patch] metFORMIN HCL [Glucophage] 500 mg PO DAILY #0 04/02/19 Allergies Allergy/AdvReac Type Severity Reaction Status Date / Time phenytoin [From Dilantin] Allergy Anaphylaxis Verified 04/30/19 20:23 Review of Systems ROS Other: All systems not noted in ROS Statement are negative. <Deborah Hodge - Last Filed: 04/30/19 23:26> ROS Other: All systems not noted in ROS Statement are negative. <Tamir Givens - Last Filed: 05/03/19 07:50> ROS Statement: Those systems with pertinent positive or pertinent negative responses have been documented in the HPI. 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 Past Anesthesia/Blood Transfusion Reactions: No Reported Reaction Past Psychological History: No Psychological Hx Reported Smoking Status: Never smoker Past Alcohol Use History: None Reported Past Drug Use History: None Reported - Past Family History Daughter(s) Family Medical History: Osteoarthritis (OA) Additional Family Medical History / Comment(s): arthritis Father Family Medical History: Myocardial Infarction ([place]) Additional Family Medical History / Comment(s): Father of a [place] at the age of 51 yrs. Mother Family Medical History: Respiratory Disorder Additional Family Medical History / Comment(s): Mother of TB at the age of 34 yrs. <Deborah Hodge M - Last Filed: 04/30/19 23:26> General Exam Limitations: no limitations General appearance: alert, in no apparent distress, other (This is a well-developed, thin appearing elderly female patient in no acute distress. Vital signs upon presentation are temperature 97.3F, pulse 67, respirations 18, blood pressure 158/71, pulse ox 97% on room air.) Eye exam: Present: normal appearance, PERRL, EOMI. Absent: scleral icterus, conjunctival injection, periorbital swelling ENT exam: Present: normal exam, normal oropharynx, mucous membranes moist Respiratory exam: Present: normal lung sounds bilaterally. Absent: respiratory distress, wheezes, rales, rhonchi, stridor Cardiovascular Exam: Present: regular rate, normal rhythm, normal heart sounds. Absent: systolic murmur, diastolic murmur, rubs, gallop, clicks GI/Abdominal exam: Present: soft, tenderness (Left lower quadrant), normal bowel sounds. Absent: distended, guarding, rebound, rigid Neurological exam: Present: alert, oriented X3, CN II-XII intact Psychiatric exam: Present: normal affect, normal mood Skin exam: Present: warm, dry, intact, pallor. Absent: normal color, rash <Deborah Hodge M - Last Filed: 04/30/19 23:26> Course Vital Signs 04/30/19 04/30/19 04/30/19 18:29 19:38 20:00 Temperature 97.3 F L Pulse Rate 67 67 Respiratory 18 18 Rate Blood Pressure 158/71 175/72 O2 Sat by Pulse 97 95 96 Oximetry 04/30/19 05/01/19 21:00 00:00 Temperature 97.8 F Pulse Rate 68 62 Respiratory 16 16 Rate Blood Pressure 172/99 168/98 O2 Sat by Pulse 98 98 Oximetry Medical Decision Making - Lab Data Result diagrams: 04/30/19 19:20 04/30/19 19:20 - EKG Data -: EKG Interpreted by Me - Radiology Data Radiology results: report reviewed, image reviewed <Deborah Hodge - Last Filed: 04/30/19 23:26> - Lab Data Result diagrams: 05/02/19 08:45 05/03/19 06:41 <Tamir Givens - Last Filed: 05/03/19 07:50> - Medical Decision Making 84-year-old female patient presented to the emergency department today for evaluation of abdominal pain, vomiting, and low back pain. She is also reporting urinary and bowel incontinence and diminished ambulation due to back pain. Primary care physician was concerned for bowel obstruction. CT of the abdomen and pelvis was obtained and showed evidence for a right paraspinal abscess. Initial plan was to transfer patient to [facility] for neurosurgery consultation, I did speak to the neurosurgeon Dr. Arevalo who was uncertain surgery would be necessary and recommended we run the case by our spinal surgeon prior to transfer. I discussed the case with Tono Wylie who is knowledge management consultant for Dr. Gutierres. He and Dr. Gutierres reviewed the images and felt this was more a psoas abscess or paraspinal abscess that would require anterior approach for drainage should drainage be necessary and recommended general surgery consultation and admission to medicine. Tono stated that they are familiar with this patient and will be following up outpatient with her so consult is not necessary. I did discuss the case with Dr. Stein who agrees to consult. Recommends antibiotic initiation and infectious disease consult. Patient will be admitted with IV antibiotics appropriate consults will be placed. Family is updated regarding diagnosis and plan of care and are agreeable. (Deborah Hodge) I saw this patient in conjunction with the physician assistant surveyor. I performed independent history and physical exam. Agree with case management. (Tamir Givens) - Lab Data Lab Results 04/30/19 04/30/19 04/30/19 Range/Units 19:20 19:20 19:20 WBC 9.8 (3.8-10.6) k/uL RBC 3.16 L (3.80-5.40) m/uL Hgb 9.5 L (11.4-16.0) gm/dL Hct 28.9 L (34.0-46.0) % MCV 91.5 (80.0-100.0) fL MCH 29.9 (25.0-35.0) pg MCHC 32.7 (31.0-37.0) g/dL RDW 15.1 (11.5-15.5) % Plt Count 527 H D (150-450) k/uL Neutrophils % 88 % Lymphocytes % 2 % Monocytes % 6 % Eosinophils % 0 % Basophils % 2 % Neutrophils # 8.6 H (1.3-7.7) k/uL Lymphocytes # 0.2 L (1.0-4.8) k/uL Monocytes # 0.6 (0-1.0) k/uL Eosinophils # 0.0 (0-0.7) k/uL Basophils # 0.2 (0-0.2) k/uL Hypochromasia ESR (0-20) mm/hr PT (9.0-12.0) sec INR (<1.2) Sodium 130 L (137-145) mmol/L Potassium 4.7 (3.5-5.1) mmol/L Chloride 91 L (98-107) mmol/L Carbon Dioxide 29 (22-30) mmol/L Anion Gap 10 mmol/L BUN 23 H (7-17) mg/dL Creatinine 0.94 (0.52-1.04) mg/dL Est GFR (CKD-EPI)AfAm 64 (>60 ml/min/1.73 sqM) Est GFR (CKD-EPI)NonAf 56 (>60 ml/min/1.73 sqM) Glucose 91 (74-99) mg/dL POC Glucose (mg/dL) (75-99) mg/dL POC Glu Chip Machine Operator ID Plasma Lactic Acid Babak 1.0 (0.7-2.0) mmol/L Calcium 8.5 (8.4-10.2) mg/dL Total Bilirubin 1.3 (0.2-1.3) mg/dL AST 92 H (14-36) U/L ALT 62 H (9-52) U/L Alkaline Phosphatase 150 H (38-126) U/L C-Reactive Protein (<10.0) mg/L Total Protein 7.3 (6.3-8.2) g/dL Albumin 3.5 (3.5-5.0) g/dL Amylase 61 (30-110) U/L Lipase 21 L (23-300) U/L Urine Color Urine Appearance (Clear) Urine pH (5.0-8.0) Ur Specific Clio (1.001-1.035) Urine Protein (Negative) Urine Glucose (UA) (Negative) Urine Ketones (Negative) Urine Blood (Negative) Urine Nitrite (Negative) Urine Bilirubin (Negative) Urine Urobilinogen (<2.0) mg/dL Ur Leukocyte Esterase (Negative) Urine RBC (0-5) /hpf Urine WBC (0-5) /hpf Ur Squamous Epith Cells (0-4) /hpf Urine Bacteria (None) /hpf Urine Mucus (None) /hpf 04/30/19 05/01/19 05/01/19 Range/Units 19:20 15:51 15:51 WBC (3.8-10.6) k/uL RBC (3.80-5.40) m/uL Hgb (11.4-16.0) gm/dL Hct (34.0-46.0) % MCV (80.0-100.0) fL MCH (25.0-35.0) pg MCHC (31.0-37.0) g/dL RDW (11.5-15.5) % Plt Count (150-450) k/uL Neutrophils % % Lymphocytes % % Monocytes % % Eosinophils % % Basophils % % Neutrophils # (1.3-7.7) k/uL Lymphocytes # (1.0-4.8) k/uL Monocytes # (0-1.0) k/uL Eosinophils # (0-0.7) k/uL Basophils # (0-0.2) k/uL Hypochromasia ESR 35 H (0-20) mm/hr PT 11.6 (9.0-12.0) sec INR 1.1 (<1.2) Sodium (137-145) mmol/L Potassium (3.5-5.1) mmol/L Chloride (98-107) mmol/L Carbon Dioxide (22-30) mmol/L Anion Gap mmol/L BUN (7-17) mg/dL Creatinine (0.52-1.04) mg/dL Est GFR (CKD-EPI)AfAm (>60 ml/min/1.73 sqM) Est GFR (CKD-EPI)NonAf (>60 ml/min/1.73 sqM) Glucose (74-99) mg/dL POC Glucose (mg/dL) (75-99) mg/dL POC Glu Chip Machine Operator ID Plasma Lactic Acid Babak (0.7-2.0) mmol/L Calcium (8.4-10.2) mg/dL Total Bilirubin (0.2-1.3) mg/dL AST (14-36) U/L ALT (9-52) U/L Alkaline Phosphatase (38-126) U/L C-Reactive Protein (<10.0) mg/L Total Protein (6.3-8.2) g/dL Albumin (3.5-5.0) g/dL Amylase (30-110) U/L Lipase (23-300) U/L Urine Color Yellow Urine Appearance Cloudy H (Clear) Urine pH 6.0 (5.0-8.0) Ur Specific Clio 1.019 (1.001-1.035) Urine Protein Trace H (Negative) Urine Glucose (UA) Negative (Negative) Urine Ketones Trace H (Negative) Urine Blood Trace H (Negative) Urine Nitrite Negative (Negative) Urine Bilirubin Negative (Negative) Urine Urobilinogen <2.0 (<2.0) mg/dL Ur Leukocyte Esterase Large H (Negative) Urine RBC 1 (0-5) /hpf Urine WBC 35 H (0-5) /hpf Ur Squamous Epith Cells 4 (0-4) /hpf Urine Bacteria Occasional H (None) /hpf Urine Mucus Rare H (None) /hpf 05/01/19 05/02/19 05/02/19 Range/Units 15:51 06:28 06:28 WBC 7.4 (3.8-10.6) k/uL RBC 2.19 L (3.80-5.40) m/uL Hgb 6.9 L* D (11.4-16.0) gm/dL Hct 20.6 L (34.0-46.0) % MCV 94.0 (80.0-100.0) fL MCH 31.3 (25.0-35.0) pg MCHC 33.3 (31.0-37.0) g/dL RDW 15.1 (11.5-15.5) % Plt Count 367 (150-450) k/uL Neutrophils % 79 % Lymphocytes % 9 % Monocytes % 8 % Eosinophils % 2 % Basophils % 1 % Neutrophils # 5.8 (1.3-7.7) k/uL Lymphocytes # 0.7 L (1.0-4.8) k/uL Monocytes # 0.6 (0-1.0) k/uL Eosinophils # 0.1 (0-0.7) k/uL Basophils # 0.1 (0-0.2) k/uL Hypochromasia Slight ESR (0-20) mm/hr PT (9.0-12.0) sec INR (<1.2) Sodium 130 L (137-145) mmol/L Potassium 4.0 (3.5-5.1) mmol/L Chloride 96 L (98-107) mmol/L Carbon Dioxide 29 (22-30) mmol/L Anion Gap 5 mmol/L BUN 18 H (7-17) mg/dL Creatinine 0.86 (0.52-1.04) mg/dL Est GFR (CKD-EPI)AfAm 72 (>60 ml/min/1.73 sqM) Est GFR (CKD-EPI)NonAf 62 (>60 ml/min/1.73 sqM) Glucose 82 (74-99) mg/dL POC Glucose (mg/dL) (75-99) mg/dL POC Glu Chip Machine Operator ID Plasma Lactic Acid Babak (0.7-2.0) mmol/L Calcium 7.3 L (8.4-10.2) mg/dL Total Bilirubin 0.6 (0.2-1.3) mg/dL AST 54 H (14-36) U/L ALT 48 (9-52) U/L Alkaline Phosphatase 94 (38-126) U/L C-Reactive Protein 85.9 H (<10.0) mg/L Total Protein 5.1 L (6.3-8.2) g/dL Albumin 2.3 L (3.5-5.0) g/dL Amylase (30-110) U/L Lipase (23-300) U/L Urine Color Urine Appearance (Clear) Urine pH (5.0-8.0) Ur Specific Clio (1.001-1.035) Urine Protein (Negative) Urine Glucose (UA) (Negative) Urine Ketones (Negative) Urine Blood (Negative) Urine Nitrite (Negative) Urine Bilirubin (Negative) Urine Urobilinogen (<2.0) mg/dL Ur Leukocyte Esterase (Negative) Urine RBC (0-5) /hpf Urine WBC (0-5) /hpf Ur Squamous Epith Cells (0-4) /hpf Urine Bacteria (None) /hpf Urine Mucus (None) /hpf 05/02/19 05/02/19 Range/Units 07:14 08:45 WBC 8.4 (3.8-10.6) k/uL RBC 2.66 L (3.80-5.40) m/uL Hgb 8.0 L (11.4-16.0) gm/dL Hct 25.0 L (34.0-46.0) % MCV 94.0 (80.0-100.0) fL MCH 30.2 (25.0-35.0) pg MCHC 32.1 (31.0-37.0) g/dL RDW 15.0 (11.5-15.5) % Plt Count 424 (150-450) k/uL Neutrophils % 84 % Lymphocytes % 6 % Monocytes % 6 % Eosinophils % 1 % Basophils % 1 % Neutrophils # 7.1 (1.3-7.7) k/uL Lymphocytes # 0.5 L (1.0-4.8) k/uL Monocytes # 0.5 (0-1.0) k/uL Eosinophils # 0.1 (0-0.7) k/uL Basophils # 0.1 (0-0.2) k/uL Hypochromasia Slight ESR (0-20) mm/hr PT (9.0-12.0) sec INR (<1.2) Sodium (137-145) mmol/L Potassium (3.5-5.1) mmol/L Chloride (98-107) mmol/L Carbon Dioxide (22-30) mmol/L Anion Gap mmol/L BUN (7-17) mg/dL Creatinine (0.52-1.04) mg/dL Est GFR (CKD-EPI)AfAm (>60 ml/min/1.73 sqM) Est GFR (CKD-EPI)NonAf (>60 ml/min/1.73 sqM) Glucose (74-99) mg/dL POC Glucose (mg/dL) 98 (75-99) mg/dL POC Glu Chip Machine Operator ID Kierra Minor Plasma Lactic Acid Babak (0.7-2.0) mmol/L Calcium (8.4-10.2) mg/dL Total Bilirubin (0.2-1.3) mg/dL AST (14-36) U/L ALT (9-52) U/L Alkaline Phosphatase (38-126) U/L C-Reactive Protein (<10.0) mg/L Total Protein (6.3-8.2) g/dL Albumin (3.5-5.0) g/dL Amylase (30-110) U/L Lipase (23-300) U/L Urine Color Urine Appearance (Clear) Urine pH (5.0-8.0) Ur Specific Clio (1.001-1.035) Urine Protein (Negative) Urine Glucose (UA) (Negative) Urine Ketones (Negative) Urine Blood (Negative) Urine Nitrite (Negative) Urine Bilirubin (Negative) Urine Urobilinogen (<2.0) mg/dL Ur Leukocyte Esterase (Negative) Urine RBC (0-5) /hpf Urine WBC (0-5) /hpf Ur Squamous Epith Cells (0-4) /hpf Urine Bacteria (None) /hpf Urine Mucus (None) /hpf - EKG Data EKG Comments: EKG obtained at 1933 shows normal sinus rhythm with a ventricular rate of 64, NE interval 168, QRS duration 90, QT 454, QTC 468. No evidence of significant ST elevation or depression. (Deborah Hodge) - Radiology Data CT abdomen and pelvis with contrast was obtained. Report was reviewed in its entirety. Impression by Dr. Ramos showing paraspinal mixed density in the right side at the L3 to 4 level that raises the possibility of a paraspinal abscess that is a change compared to old exam obtained on 04/07/2019. There is compression fracture of L3 that shows increased fragmentation progression compared to old exam. MRI scan would be helpful for further evaluation of clinically indicated. Mild gastric wall thickening unchanged compared to old exam and could relate hypertrophic gastritis. Moderate cardiomegaly. Extensive pulmonary fibrotic changes at the lung bases. (Deborah Hodge) Disposition Decision to Admit Reason: Admit from EC Decision Date: 04/30/19 Decision Time: 23:27 <Deborah Hodge - Last Filed: 04/30/19 23:26> <Tamir Givens - Last Filed: 05/03/19 07:50> Clinical Impression: Psoas abscess, right Disposition: ADMITTED IP TO THIS [facility] Condition: Serious
--- NOTE | 2019-04-30 20:35 | CT ---
EXAMINATION TYPE: CT abdomen pelvis w con DATE OF EXAM: 04/30/2019 COMPARISON: 04/07/2019 HISTORY: Abdominal pain. CT DLP: 650.1 mGycm Automated exposure control for dose reduction was used. TECHNIQUE: Helical acquisition of images was performed from the lung bases through the pelvis. CONTRAST: Performed without Oral Contrast and with IV Contrast, patient injected with 80ml mL of Isovue 300. FINDINGS: There is coarse interstitial density in honeycomb pattern in the lower lung corn[place]. Heart is enlarged . There is atherosclerotic vascular calcification. Stomach wall is somewhat thickened. Spleen is inta ct. There is no evidence of pancreatic mass. Liver shows no focal defect. Gallbladder appears normal. Bile ducts are not dilated. There is no adrenal mass. Kidneys show satisfactory contrast opacification. There is no hydronephrosi s. There is no retroperitoneal adenopathy. There is no ascites. There is no free air. Bladder distend s smoothly. There is no inguinal hernia. There is no free fluid in the pelvis. There is thoracolumbar kyphotic deformity. There is 75% wedging of T12 vertebra. There is 30% compression deformity of L3 a nd 50% compression of L5. There is no sign of free air. There is no evidence of a bowel obstruction. There is some increased density in the paraspinal region at the L3 and L4 level with variable attenua tion. There is 15 mm rounded fluid density on the right side. IMPRESSION: THERE IS PARASPINAL MIXED DENSITY ON THE RIGHT SIDE AT L3-L4 LEVEL THAT RAISES THE POSSIBILITY OF A P ARASPINAL ABSCESS THAT IS A CHANGE COMPARED TO OLD EXAM. THERE IS COMPRESSION FRACTURE OF L3 THAT MAXIME WS INCREASED FRAGMENTATION AND PROGRESSION COMPARED TO OLD EXAM. MR SCAN WOULD BE HELPFUL FOR FURTHER EVALUATION IF CLINICALLY INDICATED. MILD GASTRIC WALL THICKENING UNCHANGED COMPARED TO OLD EXAM AND COULD RELATE TO HYPERTROPHIC GASTRITI S. MODERATE CARDIOMEGALY. EXTENSIVE PULMONARY FIBROTIC CHANGES AT THE LUNG BASES.
[2019-04-30 21:42] LABS: Appearance,Urine Cloudy (Clear); Bacteria,Urine Occasional /hpf; Bilirubin,Urine Negative (Negative); Blood,Urine Trace (Negative); Color,Urine Yellow; Glucose,Urine (UA) Negative (Negative); Ketones,Urine Trace (Negative); Leukocyte Esterase,Urine Large (Negative); Mucus,Urine Rare /hpf; Nitrite,Urine Negative (Negative); Protein,Urine Trace (Negative); RBC,Urine 1 /hpf (0-5); Specific Gravity,Urine 1.019 (1.001-1.035); Squamous Epithelial Cell,Urine 4 /hpf (0-4); Urobilinogen,Urine <2.0 mg/dL (<2.0); WBC,Urine 35 /hpf (0-5)
[2019-04-30] MEDS ORDERED: VANCOMYCIN IV PER PHARMACY 1 EACH MISC MISCELLANE PRN (23:23)
[2019-04-30] MEDS ORDERED: ACETAMINOPHEN TAB 325 MG TAB PO PRN (23:24)
[2019-04-30] MEDS ORDERED: NALOXONE 0.4 MG/ML 1 ML VIAL IV PRN (23:24)
[2019-04-30] MEDS ORDERED: ONDANSETRON 4 MG/2 ML VIAL IVP PRN (23:24)
[2019-05-01] MEDS ORDERED: VANCOMYCIN 750 MG in SODIUM CHLORIDE 0.9% 250 ML IVPB SCH ×2
[2019-05-01] MEDS: HYDROcodone/APAP 7.5-325MG 1 EACH TAB PO PRN ×4 (01:27→22:54)
--- NOTE | 2019-05-01 10:44 | P.GSCN ---
History of Present Illness Consult date: 05/01/19 History of present illness: 84-year-old female presents to the emergency department with complaints of back pain. This is a chronic issue for the patient. She has been evaluated by orthopedic surgery multiple times in the hospital during admissions and as an outpatient. She has chronic fractures of the spine and has been recommended to her back brace. Recommendation has also been made for nursing facility care due to her difficulty with ambulation. On workup, CT of the abdomen and pelvis was performed with concern of a abscess in the paraspinal location. This is measured at 15 mm. The patient is also noted to have history of chronic constipation. She is currently not complaining of any abdominal pain. Her daughter is at bedside. The patient did also complain of recent weakness in the lower extremity. The patient cannot recall if this was the right or left extremity. Currently, the patient denies any fevers, chills, chest pain or shortness of breath. 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 Past Anesthesia/Blood Transfusion Reactions: No Reported Reaction Past Psychological History: No Psychological Hx Reported Additional Psychological History / Comment(s): Pt resides with her colt, Nivia and her son in law, Samuel. She uses a walker to ambulate. Her son in law takes her to app. She has [facility]. Smoking Status: Never smoker Past Alcohol Use History: None Reported Past Drug Use History: None Reported - Past Family History Daughter(s) Family Medical History: Osteoarthritis (OA) Additional Family Medical History / Comment(s): arthritis Father Family Medical History: Myocardial Infarction (MO) Additional Family Medical History / Comment(s): Father of a MO at the age of 51 yrs. Mother Family Medical History: Respiratory Disorder Additional Family Medical History / Comment(s): Mother of TB at the age of 34 yrs. Medications and Allergies Home Medications Medication Instructions Recorded Confirmed Type Carvedilol [Coreg] 6.25 mg PO BID 10/05/18 04/30/19 History Cholecalciferol [Vitamin D3 (25 1,000 unit PO DAILY 10/05/18 04/30/19 History Mcg = 1000 Iu)] Lacosamide [Vimpat] 50 mg PO Q12H 10/05/18 04/30/19 History Pantoprazole [Protonix] 40 mg PO DAILY 10/05/18 04/30/19 History levETIRAcetam [Keppra Oral 100 mg PO BID 10/05/18 04/30/19 History Solution] HYDROcodone/APAP 7.5-325MG [[place] 1 tab PO Q6H PRN 03/02/19 04/30/19 History 7.5-325] Lisinopril [Zestril] 20 mg PO BID 03/02/19 04/30/19 History Amiodarone [Cordarone] 200 mg PO BID 04/01/19 04/30/19 History Apixaban [Eliquis] 2.5 mg PO BID 04/01/19 04/30/19 History Atorvastatin [Lipitor] 20 mg PO DAILY 04/01/19 04/30/19 History Lactobacillus Acidophilus 1 tab PO DAILY 04/01/19 04/30/19 History [Acidophilus] Nitroglycerin Sl Tabs [Nitrostat] 0.4 mg SUBLINGUAL Q5M PRN 04/01/19 04/30/19 History amLODIPine [Norvasc] 2.5 mg PO DAILY 04/01/19 04/30/19 History Lidocaine 5% Patch [Lidoderm 5% 1 patch TOPICAL DAILY #10 patch 04/02/19 04/30/19 Rx Patch] metFORMIN HCL [Glucophage] 500 mg PO DAILY #0 04/02/19 04/30/19 Rx Acetaminophen [Tylenol Arthritis] 1,300 mg PO Q4H PRN 04/30/19 04/30/19 History Famotidine [Pepcid] 20 mg PO BID 04/30/19 04/30/19 History Lactulose [Cephulac] 10 gm PO DAILY PRN 04/30/19 04/30/19 History Methyl Salicylate/Menthol 1 patch TOPICAL Q12H 04/30/19 04/30/19 History [Salonpas Patch] Polyethylene Glycol 3350 [Miralax] 17 gm PO DAILY 04/30/19 04/30/19 History Allergies Allergy/AdvReac Type Severity Reaction Status Date / Time phenytoin [From Dilantin] Allergy Anaphylaxis Verified 04/30/19 20:23 Surgical - Exam Osteopathic Statement: *. No significant issues noted on an osteopathic structural exam other than those noted in the History and Physical/Consult. Vital Signs Temp Pulse Resp BP Pulse Ox 97.3 F L 67 18 158/71 97 04/30/19 18:29 04/30/19 18:29 04/30/19 18:29 04/30/19 18:29 04/30/19 18:29 - General no distress - Eyes PERRL - Neck trachea midline - Respiratory no difficulty with respiration - Abdomen Soft, nontender, nondistended, no rebound, no guarding Results - Labs 04/30/19 19:20 04/30/19 19:20 Abnormal Lab Results - Last 24 Hours (Table) 04/30/19 04/30/19 04/30/19 Range/Units 19:20 19:20 19:20 RBC 3.16 L (3.80-5.40) m/uL Hgb 9.5 L (11.4-16.0) gm/dL Hct 28.9 L (34.0-46.0) % Plt Count 527 H D (150-450) k/uL Neutrophils # 8.6 H (1.3-7.7) k/uL Lymphocytes # 0.2 L (1.0-4.8) k/uL Sodium 130 L (137-145) mmol/L Chloride 91 L (98-107) mmol/L BUN 23 H (7-17) mg/dL AST 92 H (14-36) U/L ALT 62 H (9-52) U/L Alkaline Phosphatase 150 H (38-126) U/L Lipase 21 L (23-300) U/L Urine Appearance Cloudy H (Clear) Urine Protein Trace H (Negative) Urine Ketones Trace H (Negative) Urine Blood Trace H (Negative) Ur Leukocyte Esterase Large H (Negative) Urine WBC 35 H (0-5) /hpf Urine Bacteria Occasional H (None) /hpf Urine Mucus Rare H (None) /hpf Diabetes panel 04/30/19 Range/Units 19:20 Sodium 130 L (137-145) mmol/L Potassium 4.7 (3.5-5.1) mmol/L Chloride 91 L (98-107) mmol/L Carbon Dioxide 29 (22-30) mmol/L BUN 23 H (7-17) mg/dL Creatinine 0.94 (0.52-1.04) mg/dL Glucose 91 (74-99) mg/dL Calcium 8.5 (8.4-10.2) mg/dL AST 92 H (14-36) U/L ALT 62 H (9-52) U/L Alkaline Phosphatase 150 H (38-126) U/L Total Protein 7.3 (6.3-8.2) g/dL Albumin 3.5 (3.5-5.0) g/dL Calcium panel 04/30/19 Range/Units 19:20 Calcium 8.5 (8.4-10.2) mg/dL Albumin 3.5 (3.5-5.0) g/dL Pituitary panel 04/30/19 Range/Units 19:20 Sodium 130 L (137-145) mmol/L Potassium 4.7 (3.5-5.1) mmol/L Chloride 91 L (98-107) mmol/L Carbon Dioxide 29 (22-30) mmol/L BUN 23 H (7-17) mg/dL Creatinine 0.94 (0.52-1.04) mg/dL Glucose 91 (74-99) mg/dL Calcium 8.5 (8.4-10.2) mg/dL Adrenal panel 04/30/19 Range/Units 19:20 Sodium 130 L (137-145) mmol/L Potassium 4.7 (3.5-5.1) mmol/L Chloride 91 L (98-107) mmol/L Carbon Dioxide 29 (22-30) mmol/L BUN 23 H (7-17) mg/dL Creatinine 0.94 (0.52-1.04) mg/dL Glucose 91 (74-99) mg/dL Calcium 8.5 (8.4-10.2) mg/dL Total Bilirubin 1.3 (0.2-1.3) mg/dL AST 92 H (14-36) U/L ALT 62 H (9-52) U/L Alkaline Phosphatase 150 H (38-126) U/L Total Protein 7.3 (6.3-8.2) g/dL Albumin 3.5 (3.5-5.0) g/dL Assessment and Plan (1) Psoas abscess, right Narrative/Plan: 84-year-old female with chronic back pain and vertebral fractures with finding of new possible psoas abscess - The psoas abscess is 15 mm in size. At this size, IR drainage or IV antibiotics would be favorable. - MRI could be used for further investigation, however patient's family states that the patient has had aneurysmal clips placed and is not a candidate for MRI. - Will await infectious disease recommendations Current Visit: Yes Status: Acute Code(s): K68.12 - PSOAS MUSCLE ABSCESS SNOMED Code(s): 577512113
[2019-05-01] MEDS: LIDOCAINE 5% PATCH TOPICAL SCH (11:47)
[2019-05-01] MEDS ORDERED: LACTULOSE 20 GM/30 ML CUP PO PRN (14:44)
[2019-05-01] MEDS ORDERED: ACETAMINOPHEN TAB 500 MG TAB PO PRN (14:44)
[2019-05-01] MEDS ORDERED: NITROGLYCERIN SL TABS 0.4 MG TAB SUBLINGUAL PRN (14:44)
[2019-05-01] MEDS ORDERED: LACOSAMIDE 50 MG TABLET PO SCH (14:45)
--- NOTE | 2019-05-01 15:27 | XR ---
EXAMINATION TYPE: XR chest 1V portable DATE OF EXAM: 05/01/2019 COMPARISON: 04/12/2019 HISTORY: Heart failure TECHNIQUE: Single frontal view of the chest is obtained. FINDINGS: There is coarse interstitial infiltrate in the lungs. Heart is enlarged. Pulmonary vascula rity is difficult to evaluate because of the extensive lung disease. I see no pleural effusion. IMPRESSION: Extensive fibrosis. There is clearing of the right pleural effusion compared to last exa m and this is consistent with resolving congestive heart failure.
[2019-05-01 16:25] LABS: INR 1.1 (<1.2); Prothrombin Time 11.6 sec (9.0-12.0)
[2019-05-01] MEDS: CARVEDILOL 6.25 MG TAB PO SCH (17:08)
[2019-05-01] MEDS: PIPERACILLIN-TAZOBACTAM 3.375 GM in SODIUM CHLORIDE 0.9% 100 ML IVPB SCH (17:09)
[2019-05-01] MEDS: PANTOPRAZOLE 40 MG/10 ML VIAL IVP SCH (17:09)
[2019-05-01] MEDS: HEPARIN SODIUM,PORCINE 5,000 UNIT/ML 1 ML VIAL SQ SCH ×2 (17:09→20:56)
--- NOTE | 2019-05-01 18:32 | HP ---
HISTORY AND PHYSICAL DATE OF SERVICE: 05/01/2019. CHIEF COMPLAINTS: Abdominal pain and vomiting. HISTORY OF PRESENT ILLNESS: This 84-year-old woman with a past medical history of multiple medical problems, atrial fibrillation, history of diabetes, seizure disorder, history of brain aneurysm, history of back pain, DJD being followed by Dr. Huntley in the outpatient setting was complaining of abdominal pain, vomiting for the past several days. The patient apparently was treated with primary physician. Bowel obstruction was suspected. Subsequently, the patient also noted some weakness of the both legs and dehydration with multiple other medical issues. The patient was taken to [facility] and admitted for further evaluation and treatment. White count is 9.2, hemoglobin 9.5. AST/ALT was elevated. The patient also has evidence of UTI. Patient also had a possibly paraspinal abscess on the right side at the L3-4 level and the patient admitted for further evaluation and treatment. Surgical evaluation by Dr. Stein is in progress at this time. There is no history of fever, rigors or chills. No history of headache, loss of consciousness or seizures. PAST MEDICAL HISTORY: History of atrial fibrillation, diabetes, seizure disorder, brain aneurysm, tubal ligation. MEDICATIONS: Prior to admission include: 1. Glucophage 500 mg p.o. daily. 2. Keppra 100 mg p.o. b.i.d. 3. Norvasc 2.5 mg daily. 4. MiraLAX 17 g daily. 5. Protonix 40 mg p.o. daily. 6. Nitrostat 0.4 mg p.r.n. 7. Salonpas 1 patch q b.i.d. 8. Zestril 10 mg p.o. b.i.d. 9. Lidoderm patch 1 daily. 10.Cephulac 10 g daily p.r.n. 11.Lactobacillus acidophilus 1 p.o. daily. 12.Vimpat 50 mg p.o. b.i.d. 13.[place]et[place]ama 7.5 q.6h p.r.n. 14.Pepcid 20 mg p.o. b.i.d. 15.Vitamin D3 1000 units daily. 16.Coreg 6.25 mg p.o. b.i.d. 17.Lipitor 20 mg p.o. daily. 18.Eliquis 2.5 mg p.o. b.i.d. 19.Cordarone 200 mg p.o. b.i.d. 20.Tylenol #3 100 mg q.4 p.r.n. ALLERGIES: Phenytoin. FAMILY HISTORY: History of degenerative joint disease and arthritis. SOCIAL HISTORY: No history of smoking. No history of alcohol. REVIEW OF SYSTEMS: ENT: Diminished vision, diminished hearing. CARDIOVASCULAR: No angina or palpitations. RESPIRATION: No cough or hemoptysis. GI as mentioned earlier. : As mentioned earlier. NERVOUS SYSTEM as mentioned earlier. ALLERGY/IMMUNOLOGY: No asthma or hayfever. MUSCULOSKELETAL as mentioned earlier. HEMATOLOGY/ONCOLOGY: No history of anemia. ENDOCRINE: As mentioned earlier, diabetes. CONSTITUTIONAL: As mentioned earlier. DERMATOLOGY: Negative. RHEUMATOLOGY negative. PSYCHIATRY as mentioned earlier. PHYSICAL EXAMINATION: Patient is alert and oriented x2. Pulse 76. Blood pressure 184/68, respiration 16, temperature 98.1, pulse ox 94% on room air. HEENT: Conjunctivae normal. Oral mucosa moist. NECK is no jugular venous distention. No carotid bruit. No lymph node enlargement. CARDIOVASCULAR SYSTEM: S1, S2 muffled. RESPIRATIONS: Breath sounds diminished in the bases. No rhonchi. No crackles. ABDOMEN: Soft. Mild diffuse distention. Otherwise, nontender. No mass palpable. No guarding. No rigidity. Mild diffuse discomfort on palpation. Bowel sounds present. No ascites. LEGS: No edema. No swelling. NERVOUS SYSTEM: Higher functions as mentioned earlier. Moves all 4 limbs. No focal motor-sensory deficits. LYMPHATICS: No lymph nodes palpable in the neck, axillae or groin. SKIN: No ulcer, no rash and no bleeding. JOINTS: No active deforming arthropathy. LABS: At this time shows WBC 9.8, hemoglobin 9.5, sodium 130, potassium 4.7. AST is 92, ALT 62. UA noted. ASSESSMENT: 1. Abdominal pain, nausea, vomiting, possible partial small-bowel obstruction. 2. Possible acute paraspinal psoas abscess on the right. 3. 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 4. Anemia of chronic disease. 5. Hyponatremia. 6. Increased AST and ALT of undetermined etiology. 7. Possible urinary tract infection present on admission. 8. Atrial fibrillation. 9. Diabetes mellitus type 2. 10.Seizure disorder. 11.History of brain aneurysm with seizure. 12.History of T12 fracture. 13.FULL CODE. 14.Gait dysfunction. 15.Severe protein calorie malnutrition with a BMI of 20.6. RECOMMENDATIONS AND DISCUSSION: In this 84-year-old woman who presented with multiple complex medical issues, we will monitor the patient closely. We will initiate broad-spectrum IV antibiotics. Follow the cultures. Surgery evaluation by Dr. Stein is in progress. I would also recommend orthopedic evaluation Dr. Gutierres also regarding the extensive back lesions and the presence of paraspinal psoas abscess also. The prognosis is guarded. See orders for details. Home medications will be continued. Discussed with multiple members of family. Copy of this dictation being forwarded to Dr. Huntley who is the primary physician. SAEEDL / CHAITANYAN: [id number] /
[2019-05-01] MEDS: LISINOPRIL 20 MG TAB PO SCH (20:56)
[2019-05-01] MEDS: VANCOMYCIN 750 MG in SODIUM CHLORIDE 0.9% 250 ML IVPB SCH ×2 (20:56→22:48)
[2019-05-01] MEDS: AMIODARONE 200 MG TAB PO SCH (20:56)
[2019-05-01] MEDS: levETIRAcetam ORAL SOLN 500 MG/5 ML CUP PO SCH (20:57)
--- NOTE | 2019-05-01 22:37 | P.CONS ---
History of Present Illness - Reason for Consult Consult date: 05/01/19 - Chief Complaint abdominal pain - History of Present Illness 84-year-old female who is cared for by her family members in the family home has had a progressively declining status but they've had no difficulty managing her in the home setting. She has no difficulties with any skin breakdown and up until very recently she was eating relatively well. However over the last few days developed nausea and emesis and wasn't feeling well. There is grade difficulties even getting out of her medication down with applesauce. She became weaker and was complaining of increasing amounts of back pain. She was seen by her primary care physician and then sent to the emergency center for further evaluation. She has chronic back pain with an old L3 compression fracture and has been seen by orthopedic surgery in the past. She is not thought to be a good surgical candidate and back bracing was suggested. The patient now presents with a significant GI symptoms and computed tomography scan was performed with evidence of worsening of the L3 compression fracture and evidence of a new fluid collection 1.5 cm in the left paraspinal region. With this the consult is requested. The patient has already been evaluated by general surgery.the patient herself is able to give very little history, the family members were present are very helpful. 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 Past Anesthesia/Blood Transfusion Reactions: No Reported Reaction Past Psychological History: No Psychological Hx Reported Additional Psychological History / Comment(s): Pt resides with her daughter, Nivia and her son in law, Samuel. She uses a walker to ambulate. Her son in law takes her to appts. She has [facility]. She is a total of 7 children it appears they are all quite involved in the overall care of the mother. She is . Lifelong nonsmoker. No travel. No animals at home setting. Is exposed to smoking in the house. Smoking Status: Never smoker Past Alcohol Use History: None Reported Past Drug Use History: None Reported - Past Family History Daughter(s) Family Medical History: Osteoarthritis (OA) Additional Family Medical History / Comment(s): arthritis Father Family Medical History: Myocardial Infarction (OR) Additional Family Medical History / Comment(s): Father of a OR at the age of 51 yrs. Mother Family Medical History: Respiratory Disorder Additional Family Medical History / Comment(s): Mother of TB at the age of 34 yrs. Medications and Allergies Home Medications and Allergies Comment(s): Current Medications Acetaminophen (Tylenol Tab) 650 mg PO Q6HR PRN PRN Reason: Mild Pain or Fever > 100.5 Acetaminophen (Tylenol Tab) 1,000 mg PO Q4H PRN PRN Reason: Pain or Fever > 100.5 Hydrocodone Bitart/Acetaminophen ([place] 7.5-325) 1 each PO Q6H PRN PRN Reason: Pain Last Admin: 05/01/19 17:29 Dose: 1 each Documented by: Amiodarone HCl (Cordarone) 200 mg PO BID [facility] Last Admin: 05/01/19 20:56 Dose: 200 mg Documented by: Amlodipine Besylate (Norvasc) 2.5 mg PO DAILY [facility] Carvedilol (Coreg) 6.25 mg PO BID-W/MEALS [facility] Last Admin: 05/01/19 17:08 Dose: 6.25 mg Documented by: Heparin Sodium (Porcine) (Heparin) 5,000 unit SQ Q12HR [facility] Last Admin: 05/01/19 20:56 Dose: 5,000 unit Documented by: Vancomycin HCl 750 mg/ Sodium (Chloride) 250 mls @ 125 mls/hr IVPB Q24H [facility] Last Admin: 05/01/19 20:56 Dose: 125 mls/hr Documented by: Piperacillin Sod/Tazobactam (Sod 3.375 gm/ Sodium Chloride) 100 mls @ 25 mls/hr IVPB Q8HR [facility] Last Admin: 05/01/19 17:09 Dose: 25 mls/hr Documented by: Lacosamide (Vimpat) 50 mg PO BID@0500,1700 [facility] Lactobacillus Acidoph/Bulgaricus (Lactinex) 1 each PO W/BRKFST [facility] Lactulose (Cephulac) 10 gm PO DAILY PRN PRN Reason: Constipation Levetiracetam (Keppra Oral Soln) 100 mg PO BID [facility] Last Admin: 05/01/19 20:57 Dose: 100 mg Documented by: Lidocaine (Lidoderm) 1 patch TOPICAL DAILY [facility] Last Admin: 05/01/19 11:47 Dose: 1 patch Documented by: Lisinopril (Zestril) 20 mg PO BID [facility] Last Admin: 05/01/19 20:56 Dose: 20 mg Documented by: Naloxone HCl (Narcan) 0.2 mg IV Q2M PRN PRN Reason: Opioid Reversal Nitroglycerin (Nitrostat) 0.4 mg SUBLINGUAL Q5M PRN PRN Reason: Chest Pain Ondansetron HCl (Zofran) 4 mg IVP Q8HR PRN PRN Reason: Nausea And Vomiting Pantoprazole Sodium (Protonix) 40 mg IVP DAILY [facility] Last Admin: 05/01/19 17:09 Dose: 40 mg Documented by: Home Medications Medication Instructions Recorded Confirmed Type Carvedilol [Coreg] 6.25 mg PO BID 10/05/18 04/30/19 History Cholecalciferol [Vitamin D3 (25 1,000 unit PO DAILY 10/05/18 04/30/19 History Mcg = 1000 Iu)] Lacosamide [Vimpat] 50 mg PO Q12H 10/05/18 04/30/19 History Pantoprazole [Protonix] 40 mg PO DAILY 10/05/18 04/30/19 History levETIRAcetam [Keppra Oral 100 mg PO BID 10/05/18 04/30/19 History Solution] HYDROcodone/APAP 7.5-325MG [[place] 1 tab PO Q6H PRN 03/02/19 04/30/19 History 7.5-325] Lisinopril [Zestril] 20 mg PO BID 03/02/19 04/30/19 History Amiodarone [Cordarone] 200 mg PO BID 04/01/19 04/30/19 History Apixaban [Eliquis] 2.5 mg PO BID 04/01/19 04/30/19 History Atorvastatin [Lipitor] 20 mg PO DAILY 04/01/19 04/30/19 History Lactobacillus Acidophilus 1 tab PO DAILY 04/01/19 04/30/19 History [Acidophilus] Nitroglycerin Sl Tabs [Nitrostat] 0.4 mg SUBLINGUAL Q5M PRN 04/01/19 04/30/19 History amLODIPine [Norvasc] 2.5 mg PO DAILY 04/01/19 04/30/19 History Lidocaine 5% Patch [Lidoderm 5% 1 patch TOPICAL DAILY #10 patch 04/02/19 04/30/19 Rx Patch] metFORMIN HCL [Glucophage] 500 mg PO DAILY #0 04/02/19 04/30/19 Rx Acetaminophen [Tylenol Arthritis] 1,300 mg PO Q4H PRN 04/30/19 04/30/19 History Famotidine [Pepcid] 20 mg PO BID 04/30/19 04/30/19 History Lactulose [Cephulac] 10 gm PO DAILY PRN 04/30/19 04/30/19 History Methyl Salicylate/Menthol 1 patch TOPICAL Q12H 04/30/19 04/30/19 History [Salonpas Patch] Polyethylene Glycol 3350 [Miralax] 17 gm PO DAILY 04/30/19 04/30/19 History Allergies Allergy/AdvReac Type Severity Reaction Status Date / Time phenytoin [From Dilantin] Allergy Anaphylaxis Verified 04/30/19 20:23 Physical Exam Vitals: Vital Signs Temp Pulse Pulse Resp BP BP Pulse Ox 05/01/19 19:15 97.6 F 56 L 16 133/43 96 05/01/19 15:00 97.9 F 64 16 156/54 94 L 05/01/19 07:10 16 05/01/19 07:00 98.1 F 76 16 184/68 94 L 05/01/19 02:07 97.8 F 75 18 172/66 95 05/01/19 00:35 98.0 F 65 16 162/78 98 05/01/19 00:00 97.8 F 62 16 168/98 98 Intake and Output 05/01/19 05/01/19 05/01/19 06:59 14:59 22:59 Intake Total 445 936 Output Total 400 Balance 45 936 Intake: Intake, IV Titration 100 Amount Piperacillin-Tazobactam 3 100 .375 gm In Sodium Chloride 0.9% 100 ml @ 25 mls/hr IVPB Q8HR [facility] Rx# :[id number] Oral 445 836 Output: Urine 400 Other: # Voids 1 1 3 84-year-old female with advanced dementia HEENT: Anicteric conjunctiva are pink and moist nasal mucosa grossly intact without significant lesions, there is no thrush.positive denture Neck: The neck is supple without significant lymphadenopathy or thyromegaly. Lungs: Good bilateral air entry without significant crackles or wheezing. There is no significant bronchial sounds. There is no egophony or dullness. Heart: irregular positive S4 no murmur click or rub Abdomen: scaphoid,Positive bowel sounds soft and nontender without palpable masses or organomegaly. There was no guarding or rebound. Extremities: The upper extremities have excellent pulses they are symmetric, no significant petechiae or telangiectasia. No splinter hemorrhages were noted. The lower extremities are free from significant edema. The peripheral pulses were 2+ and symmetric. Skin: The patient is very thin the vertebrae are easily seen at each level, she has significant osteoporosis with some scoliosis. There are no open ulcerations, but there is distinct tenderness over the lumbar spine. I can palpate no significant mass there is no warmth or erythema. There is nothing fluctuant. Neuro: Awake alert oriented to person is not able to identify her daughter who is standing next to her Results CBC & Chem 7: 04/30/19 19:20 04/30/19 19:20 Labs: Abnormal Lab Results - Last 24 Hours (Table) 05/01/19 05/01/19 Range/Units 15:51 15:51 ESR 35 H (0-20) mm/hr C-Reactive Protein 85.9 H (<10.0) mg/L Laboratory Results WBC 9.8 k/uL (3.8-10.6) 04/30/19 19: RBC 3.16 m/uL (3.80-5.40) L 04/30/19 19:20 Hgb 9.5 gm/dL (11.4-16.0) L 04/30/19 19:20 Hct 28.9 % (34.0-46.0) L 04/30/19 19:20 MCV 91.5 fL (80.0-100.0) 04/30/19 19:20 MCH 29.9 pg (25.0-35.0) 04/30/19 19: MCHC 32.7 g/dL (31.0-37.0) 04/30/19 19:20 RDW 15.1 % (11.5-15.5) 04/30/19 19:20 Plt Count 527 k/uL (150-450) H D 04/30/19 19:20 Neutrophils % 88 % 04/30/19 19:20 Lymphocytes % 2 % 04/30/19 19:20 Monocytes % 6 % 04/30/19 19:20 Eosinophils % 0 % 04/30/19 19:20 Basophils % 2 % 04/30/19 19:20 Neutrophils # 8.6 k/uL (1.3-7.7) H 04/30/19 19:20 Lymphocytes # 0.2 k/uL (1.0-4.8) L 04/30/19 19:20 Monocytes # 0.6 k/uL (0-1.0) 04/30/19 19:20 Eosinophils # 0.0 k/uL (0-0.7) 04/30/19 19:20 Basophils # 0.2 k/uL (0-0.2) 04/30/19 19:20 ESR 35 mm/hr (0-20) H 05/01/19 15:51 PT 11.6 sec (9.0-12.0) 05/01/19 15:51 INR 1.1 (<1.2) 05/01/19 15:51 Sodium 130 mmol/L (137-145) L 04/30/19 19:20 Potassium 4.7 mmol/L (3.5-5.1) 04/30/19 19:20 Chloride 91 mmol/L (98-107) L 04/30/19 19:20 Carbon Dioxide 29 mmol/L (22-30) 04/30/19 19:20 Anion Gap 10 mmol/L 04/30/19 19:20 BUN 23 mg/dL (7-17) H 04/30/19 19:20 Creatinine 0.94 mg/dL (0.52-1.04) 04/30/19 19:20 Est GFR (CKD-EPI)AfAm 64 (>60 ml/min/1.73 sqM) 04/30/19 19:20 Est GFR (CKD-EPI)NonAf 56 (>60 ml/min/1.73 sqM) 04/30/19 19:20 Glucose 91 mg/dL (74-99) 04/30/19 19:20 Plasma Lactic Acid [place] 1.0 mmol/L (0.7-2.0) 04/30/19 19:20 Calcium 8.5 mg/dL (8.4-10.2) 04/30/19 19:20 Total Bilirubin 1.3 mg/dL (0.2-1.3) 04/30/19 19:20 AST 92 U/L (14-36) H 04/30/19 19:20 ALT 62 U/L (9-52) H 04/30/19 19:20 Alkaline Phosphatase 150 U/L (38-126) H 04/30/19 19:20 C-Reactive Protein 85.9 mg/L (<10.0) H 05/01/19 15:51 Total Protein 7.3 g/dL (6.3-8.2) 04/30/19 19:20 Albumin 3.5 g/dL (3.5-5.0) 04/30/19 19:20 Amylase 61 U/L (30-110) 04/30/19 19:20 Lipase 21 U/L (23-300) L 04/30/19 19:20 Urine Color Yellow 04/30/19 19:20 Urine Appearance Cloudy (Clear) H 04/30/19 19:20 Urine pH 6.0 (5.0-8.0) 04/30/19 19:20 Ur Specific [place] 1.019 (1.001-1.035) 04/30/19 19:20 Urine Protein Trace (Negative) H 04/30/19 19:20 Urine Glucose (UA) Negative (Negative) 04/30/19 19:20 Urine Ketones Trace (Negative) H 04/30/19 19:20 Urine Blood Trace (Negative) H 04/30/19 19:20 Urine Nitrite Negative (Negative) 04/30/19 19:20 Urine Bilirubin Negative (Negative) 04/30/19 19:20 Urine Urobilinogen <2.0 mg/dL (<2.0) 04/30/19 19:20 Ur Leukocyte Esterase Large (Negative) H 04/30/19 19:20 Urine RBC 1 /hpf (0-5) 04/30/19 19:20 Urine WBC 35 /hpf (0-5) H 04/30/19 19:20 Ur Squamous Epith Cells 4 /hpf (0-4) 04/30/19 19:20 Urine Bacteria Occasional /hpf (None) H 04/30/19 19:20 Urine Mucus Rare /hpf (None) H 04/30/19 19:20 Assessment and Plan (1) Chronic back pain greater than 3 months duration Current Visit: Yes Status: Acute Code(s): M54.9 - DORSALGIA, UNSPECIFIED; G89.29 - OTHER CHRONIC PAIN SNOMED Code(s): 975634983586 (2) Nausea & vomiting Current Visit: Yes Status: Acute Code(s): R11.2 - NAUSEA WITH VOMITING, UNSPECIFIED SNOMED Code(s): 77655991 (3) Compression fracture of L3 vertebra Current Visit: No Status: Acute Code(s): S32.030A - WEDGE COMPRESSION FRACTURE OF THIRD LUMBAR VERTEBRA, INIT SNOMED Code(s): 454667265 (4) Paraspinal abscess Narrative/Plan: 84-year-old woman who has advanced dementia presents to hospital with nausea emesis and difficulty with increasing dehydration. Family who cares for in the home setting were concerned and she presented to the emergency center. Shortly after arrival she received IV fluids and has had no further bouts of nausea or emesis. She's also not had significant diarrhea. Because of her nausea and emesis and advanced age computed tomography scan of the abdomen and pelvis was performed without evidence of obstruction, diverticulitis or intra-abdominal abscess. However a paraspinous abscess was noted at the L3 level with worsening of her prior compression fracture. Because she was acutely ill at admission there is concern that this site can be an abscess because we have asked for interventional radiology to perform an aspiration of the site to characterize the fluid to then be able to develop a distinct plan. Been seen by general surgery with no plans for surgical attention to this site. Blood cultures in process. The family is made aware of current plans. Current Visit: Yes Status: Acute Code(s): M46.20 - OSTEOMYELITIS OF VERTEBRA, SITE UNSPECIFIED SNOMED Code(s): 06541205547880006
[2019-05-02] MEDS: PIPERACILLIN-TAZOBACTAM 3.375 GM in SODIUM CHLORIDE 0.9% 100 ML IVPB SCH ×3 (01:31→16:54)
[2019-05-02] MEDS: LACOSAMIDE 50 MG TABLET PO SCH ×2 (04:36→16:54)
[2019-05-02 07:15] LABS: Glucose,Whole Blood 98 mg/dL (75-99)
[2019-05-02 07:23] LABS: Basophils # (A) 0.1 k/uL (0-0.2); Basophils % (A) 1 %; Eosinophils # (A) 0.1 k/uL (0-0.7); Eosinophils % (A) 2 %; HCT 20.6 % (34.0-46.0); Hypochromasia Slight; Lymphocytes # (A) 0.7 k/uL (1.0-4.8); Lymphocytes % (A) 9 %; MCH 31.3 pg (25.0-35.0); MCHC 33.3 g/dL (31.0-37.0); Mean Platelet Volume 6.3; Monocytes # (A) 0.6 k/uL (0-1.0); Monocytes % (A) 8 %; Neutrophils # (A) 5.8 k/uL (1.3-7.7); Neutrophils % (A) 79 %; Platelet Count 367 k/uL (150-450); RBC 2.19 m/uL (3.80-5.40); RDW 15.1 % (11.5-15.5); WBC 7.4 k/uL (3.8-10.6)
[2019-05-02 07:25] LABS: HGB 6.9 gm/dL (11.4-16.0)
[2019-05-02 07:35] LABS: Albumin 2.3 g/dL (3.5-5.0); Calcium 7.3 mg/dL (8.4-10.2); Total Bilirubin 0.6 mg/dL (0.2-1.3); Total Protein 5.1 g/dL (6.3-8.2)
[2019-05-02] MEDS: levETIRAcetam ORAL SOLN 500 MG/5 ML CUP PO SCH ×2 (08:30→20:55)
[2019-05-02] MEDS: AMIODARONE 200 MG TAB PO SCH (08:32)
[2019-05-02] MEDS: PANTOPRAZOLE 40 MG/10 ML VIAL IVP SCH (08:34)
[2019-05-02] MEDS: CARVEDILOL 6.25 MG TAB PO SCH ×2 (08:34→16:53)
[2019-05-02] MEDS: LISINOPRIL 20 MG TAB PO SCH ×2 (08:34→20:55)
[2019-05-02] MEDS: amLODIPine 2.5 MG TAB PO SCH (08:34)
[2019-05-02] MEDS: LIDOCAINE 5% PATCH TOPICAL SCH (08:34)
[2019-05-02 08:57] LABS: Basophils # (A) 0.1 k/uL (0-0.2); Basophils % (A) 1 %; Eosinophils # (A) 0.1 k/uL (0-0.7); Eosinophils % (A) 1 %; Hypochromasia Slight; Lymphocytes # (A) 0.5 k/uL (1.0-4.8); Lymphocytes % (A) 6 %; MCH 30.2 pg (25.0-35.0); MCHC 32.1 g/dL (31.0-37.0); Mean Platelet Volume 5.6; Monocytes # (A) 0.5 k/uL (0-1.0); Monocytes % (A) 6 %; Neutrophils # (A) 7.1 k/uL (1.3-7.7); Neutrophils % (A) 84 %; Platelet Count 424 k/uL (150-450); RBC 2.66 m/uL (3.80-5.40); WBC 8.4 k/uL (3.8-10.6)
--- NOTE | 2019-05-02 10:08 | P.PN ---
Subjective Progress Note Date: 05/02/19 Patient seen and examined at bedside. States she is not having any abdominal pain. Continues to have discomfort in the back. She denies any nausea or vomiting. Denies any bowel changes. Objective - Vital Signs Vital signs: Vital Signs Temp 97.9 F 05/02/19 07:00 Pulse 76 05/02/19 07:00 Resp 16 05/02/19 07:00 BP 172/61 05/02/19 07:00 Pulse Ox 90 L 05/02/19 07:00 Intake & Output 05/01/19 05/02/19 05/02/19 19:59 06:59 18:59 Intake Total 186 Output Total Balance 186 Intake: Intake, IV Titration Amount Piperacillin-Tazobactam 3 .375 gm In Sodium Chloride 0.9% 100 ml @ 25 mls/hr IVPB Q8HR [facility] Rx# :[id number] Oral 186 Output: Urine Other: # Voids - Constitutional General appearance: Present: cooperative, no acute distress - Respiratory Details: no difficulty with respiration - Gastrointestinal Gastrointestinal Comment(s): Soft, nontender, nondistended, no rebound, no guarding - Musculoskeletal Musculoskeletal: Present: generalized weakness - Labs CBC & Chem 7: 05/02/19 08:45 05/02/19 06:28 Labs: Abnormal Lab Results - Last 24 Hours (Table) 05/01/19 05/01/19 05/02/19 Range/Units 15:51 15:51 06:28 RBC (3.80-5.40) m/uL Hgb (11.4-16.0) gm/dL Hct (34.0-46.0) % Lymphocytes # (1.0-4.8) k/uL ESR 35 H (0-20) mm/hr Sodium 130 L (137-145) mmol/L Chloride 96 L (98-107) mmol/L BUN 18 H (7-17) mg/dL Calcium 7.3 L (8.4-10.2) mg/dL AST 54 H (14-36) U/L C-Reactive Protein 85.9 H (<10.0) mg/L Total Protein 5.1 L (6.3-8.2) g/dL Albumin 2.3 L (3.5-5.0) g/dL 05/02/19 05/02/19 Range/Units 06:28 08:45 RBC 2.19 L 2.66 L (3.80-5.40) m/uL Hgb 6.9 L* D 8.0 L (11.4-16.0) gm/dL Hct 20.6 L 25.0 L (34.0-46.0) % Lymphocytes # 0.7 L 0.5 L (1.0-4.8) k/uL ESR (0-20) mm/hr Sodium (137-145) mmol/L Chloride (98-107) mmol/L BUN (7-17) mg/dL Calcium (8.4-10.2) mg/dL AST (14-36) U/L C-Reactive Protein (<10.0) mg/L Total Protein (6.3-8.2) g/dL Albumin (3.5-5.0) g/dL Microbiology - Last 24 Hours (Table) 04/30/19 23:21 Blood Culture - Preliminary Blood No Growth after 24 hours Assessment and Plan (1) Psoas abscess, right Narrative/Plan: 84-year-old female with chronic back pain and vertebral fractures with finding of new possible psoas abscess - The psoas abscess is 15 mm in size. IR drainage has been ordered by ID - Continue antibiotics, per ID - Ortho recs pending - No plan for acute surgical intervention at this time Current Visit: Yes Status: Acute Code(s): K68.12 - PSOAS MUSCLE ABSCESS SNOMED Code(s): 693313088
[2019-05-02] MEDS: HEPARIN SODIUM,PORCINE 5,000 UNIT/ML 1 ML VIAL SQ SCH ×2 (10:53→20:55)
[2019-05-02] MEDS: LACTOBACILLUS ACIDOPH & BULGAR 1 EACH PACKET PO SCH (11:48)
[2019-05-02 11:57] LABS: Glucose,Whole Blood 134 mg/dL (75-99)
--- NOTE | 2019-05-02 11:57 | P.CNOR ---
History of Present Illness - [facility] Consult date: 05/02/19 Requesting physician: Emilie De La Torre Consult reason: fracture (Acute worsening L3 compression fracture deformity), low back pain, other (Right psoas abscess) History of present illness: Patient is a very pleasant 84-year-old female who is seen and examined at the bedside for further evaluation of her thoracic and lumbar spines. Patient has been previously seen and examined in the hospital setting and multiple times in our office. She was seen in our office at [facility] last week for further evaluation of her acute L3 fracture which had appeared to worsen. Patient is also known have chronic compression fracture deformities at T12 and L5. She appears he had some worsening of the L5 fracture site which has remained stable during following evaluation outpatient setting. Patient continues to experience low back pain at her L3 fracture site. She is not currently experiencing any thoracic back pain. She was prescribed an LSO brace. She was previous prescribed a TLSO brace. She has not been wearing these braces that she find them uncomfortable. She presented to the emergency department on 04/30/2019 for further evaluation for abdominal pain and vomiting. She is known have difficulty with constipation as well. During presentation to the emergency department CT imaging was performed of the abdomen and pelvis. CT imaging showed evidence of right mixed density measuring approximately 15 mm in the right psoas muscle which raises possibility of abscess along with worsening compression fracture deformity at L3. Patient was admitted for further evaluation. She has been seen and examined by general surgery who is not currently planning for surgical intervention. She has been seen and examined by Dr. Gomez in infectious disease was consulted with interventional radiology who may plan to aspirate at her psoas muscle possibly tomorrow, 05/03/2019. She presents had swelling bilateral lower extremities which has improved. She is known have previously had a brain aneurysm with clips placement and is unable to have an MRI due to these clips. Family states patient would like to refrain from surgical intervention at her lumbar spine given her age. She currently denies specific lower extremity radiculopathy or weakness but does have significant difficulty with mobilization. She continues to require 2 person assist at home. Patient is still unsure if she would agree to discharge to a rehabilitation facility to regain strength prior to returning home following discharge. 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 Past Anesthesia/Blood Transfusion Reactions: No Reported Reaction Past Psychological History: No Psychological Hx Reported Additional Psychological History / Comment(s): Pt resides with her daughter, Nivia and her son in law, Samuel. She uses a walker to ambulate. Her son in law takes her to appts. She has [facility]. She is a total of 7 children it appears they are all quite involved in the overall care of the mother. She is . Lifelong nonsmoker. No travel. No animals at home setting. Is exposed to smoking in the house. Smoking Status: Never smoker Past Alcohol Use History: None Reported Past Drug Use History: None Reported - Past Family History Daughter(s) Family Medical History: Osteoarthritis (OA) Additional Family Medical History / Comment(s): arthritis Father Family Medical History: Myocardial Infarction (MA) Additional Family Medical History / Comment(s): Father of a MA at the age of 51 yrs. Mother Family Medical History: Respiratory Disorder Additional Family Medical History / Comment(s): Mother of TB at the age of 34 yrs. Medications and Allergies Home Medications Medication Instructions Recorded Confirmed Type Carvedilol [Coreg] 6.25 mg PO BID 10/05/18 04/30/19 History Cholecalciferol [Vitamin D3 (25 1,000 unit PO DAILY 10/05/18 04/30/19 History Mcg = 1000 Iu)] Lacosamide [Vimpat] 50 mg PO Q12H 10/05/18 04/30/19 History Pantoprazole [Protonix] 40 mg PO DAILY 10/05/18 04/30/19 History levETIRAcetam [Keppra Oral 100 mg PO BID 10/05/18 04/30/19 History Solution] HYDROcodone/APAP 7.5-325MG [[place] 1 tab PO Q6H PRN 03/02/19 04/30/19 History 7.5-325] Lisinopril [Zestril] 20 mg PO BID 03/02/19 04/30/19 History Amiodarone [Cordarone] 200 mg PO BID 04/01/19 04/30/19 History Apixaban [Eliquis] 2.5 mg PO BID 04/01/19 04/30/19 History Atorvastatin [Lipitor] 20 mg PO DAILY 04/01/19 04/30/19 History Lactobacillus Acidophilus 1 tab PO DAILY 04/01/19 04/30/19 History [Acidophilus] Nitroglycerin Sl Tabs [Nitrostat] 0.4 mg SUBLINGUAL Q5M PRN 04/01/19 04/30/19 History amLODIPine [Norvasc] 2.5 mg PO DAILY 04/01/19 04/30/19 History Lidocaine 5% Patch [Lidoderm 5% 1 patch TOPICAL DAILY #10 patch 04/02/19 04/30/19 Rx Patch] metFORMIN HCL [Glucophage] 500 mg PO DAILY #0 04/02/19 04/30/19 Rx Acetaminophen [Tylenol Arthritis] 1,300 mg PO Q4H PRN 04/30/19 04/30/19 History Famotidine [Pepcid] 20 mg PO BID 04/30/19 04/30/19 History Lactulose [Cephulac] 10 gm PO DAILY PRN 04/30/19 04/30/19 History Methyl Salicylate/Menthol 1 patch TOPICAL Q12H 04/30/19 04/30/19 History [Salonpas Patch] Polyethylene Glycol 3350 [Miralax] 17 gm PO DAILY 04/30/19 04/30/19 History Allergies Allergy/AdvReac Type Severity Reaction Status Date / Time phenytoin [From Dilantin] Allergy Anaphylaxis Verified 04/30/19 20:23 Physical Examination Physical exam: Patient is awake, alert, and oriented 3 Vital signs stable Good chest excursion with deep inspiration and expiration Examination of thoracic and lumbar spine reveals skin is intact with no abr asions, lacerations, or bruises; no erythema, purulence or signs of infection Increased pain with palpation over the approximate L3 fracture site No pain with palpation of the thoracic spine Evidence of increased kyphosis of the thoracic spine Dorsiflexion, plantarflexion, and extensor hallucis longus positive sustained bilaterally Lower extremity strength positive sustained throughout range of motion bilaterally but movements are slow Some increased low back pain with hip flexion bilaterally Straight leg test negative bilateral lower extremities No evidence of significant swelling of the bilateral lower extremities No signs or symptoms of DVT; no calf pain No pain with internal and external rotation of the hips bilaterally Neurovascularly intact Results Pertinent studies: CT of abdomen and pelvis taken on 04/30/2019: Right mixed density measuring approximately 15 mm in the right psoas muscle which raises possibility of abscess which is new as compared to previous imaging taken on 04/07/2019; L3 compression fracture deformity with increased fragmentation and progression of fracture as compared to previous imaging; T12 and L5 compression fracture deformities remained stable and unchanged X-rays of the thoracolumbar spine taken on 04/02/2019: Evidence of chronic T12 compression fracture deformity without significant changes compared to previous imaging taken at [facility] on 11/27/2018 and 12/25/2018; evidence of new acute L3 compression fracture deformity with approximately 25% height loss of the superior endplate; L5 worsening compression fracture deformity with approximately 50% to 60% height loss as compared to previous imaging taken on 11/27/2018 and 12/25/2018; other degenerative changes appear to be stable X-rays lumbosacral spine taken at [facility] on 12/25/2018: T12 wedging compression fracture deformity the approximately 95% height loss; L5 compression fracture deformity of approximately 30% to 40% height loss; significant degenerative changes including degenerative disc disease and spondylosis throughout the lumbar spine - Labs Labs: Abnormal Lab Results - Last 24 Hours (Table) 05/01/19 05/01/19 05/02/19 Range/Units 15:51 15:51 06:28 RBC (3.80-5.40) m/uL Hgb (11.4-16.0) gm/dL Hct (34.0-46.0) % Lymphocytes # (1.0-4.8) k/uL ESR 35 H (0-20) mm/hr Sodium 130 L (137-145) mmol/L Chloride 96 L (98-107) mmol/L BUN 18 H (7-17) mg/dL Calcium 7.3 L (8.4-10.2) mg/dL AST 54 H (14-36) U/L C-Reactive Protein 85.9 H (<10.0) mg/L Total Protein 5.1 L (6.3-8.2) g/dL Albumin 2.3 L (3.5-5.0) g/dL 05/02/19 05/02/19 Range/Units 06:28 08:45 RBC 2.19 L 2.66 L (3.80-5.40) m/uL Hgb 6.9 L* D 8.0 L (11.4-16.0) gm/dL Hct 20.6 L 25.0 L (34.0-46.0) % Lymphocytes # 0.7 L 0.5 L (1.0-4.8) k/uL ESR (0-20) mm/hr Sodium (137-145) mmol/L Chloride (98-107) mmol/L BUN (7-17) mg/dL Calcium (8.4-10.2) mg/dL AST (14-36) U/L C-Reactive Protein (<10.0) mg/L Total Protein (6.3-8.2) g/dL Albumin (3.5-5.0) g/dL Microbiology - Last 24 Hours (Table) 04/30/19 23:21 Blood Culture - Preliminary Blood No Growth after 24 hours H & H 04/30/19 05/02/19 05/02/19 Range/Units 19:20 06:28 08:45 Hgb 9.5 L 6.9 L* D 8.0 L (11.4-16.0) gm/dL Hct 28.9 L 20.6 L 25.0 L (34.0-46.0) % Coagulation 05/01/19 Range/Units 15:51 INR 1.1 (<1.2) Result Diagrams: 05/02/19 08:45 05/02/19 06:28 Assessment and Plan Assessment: Assessment: Right mixed density measuring approximately 15 mm in the right psoas muscle which raises possibility of abscess Acute worsening L3 compression fracture deformity Chronic worsening L5 compression fracture deformity Chronic T12 compression fracture deformity Significant lumbar pain approximately L3 Lumbar degenerative disc disease and spondylosis Thoracic kyphosis History of atrial fibrillation, diabetes mellitus, and seizure disorder (1) Thoracic kyphosis Current Visit: Yes Status: Acute Code(s): M40.204 - UNSPECIFIED KYPHOSIS, THORACIC REGION SNOMED Code(s): 063152483 (2) Nausea & vomiting Current Visit: Yes Status: Acute Code(s): R11.2 - NAUSEA WITH VOMITING, UNSPECIFIED SNOMED Code(s): 43923626 (3) Psoas abscess, right Current Visit: Yes Status: Acute Code(s): K68.12 - PSOAS MUSCLE ABSCESS SNOMED Code(s): 930510367 (4) Compression fracture of L3 vertebra Current Visit: No Status: Acute Code(s): S32.030A - WEDGE COMPRESSION FRACTURE OF THIRD LUMBAR VERTEBRA, INIT SNOMED Code(s): 448037187 (5) Compression fracture of L5 vertebra Current Visit: No Status: Acute Code(s): S32.050A - WEDGE COMPRESSION FRACTURE OF FIFTH LUMBAR VERTEBRA, INIT SNOMED Code(s): 121031232 (6) History of atrial fibrillation Current Visit: No Status: Acute Code(s): Z86.79 - PERSONAL HISTORY OF OTHER DISEASES OF THE CIRCULATORY SYSTEM SNOMED Code(s): 070826643 (7) History of diabetes mellitus Current Visit: No Status: Acute Code(s): Z86.39 - PERSONAL HISTORY OF ENDO, NUTRITIONAL AND METABOLIC DISEASE SNOMED Code(s): 822879680 (8) History of seizure disorder Current Visit: No Status: Acute Code(s): Z86.69 - PERSONAL HISTORY OF DIS OF THE NERVOUS SYS AND SENSE ORGANS SNOMED Code(s): 512868110 (9) Lumbar degenerative disc disease Current Visit: No Status: Acute Code(s): M51.36 - OTHER INTERVERTEBRAL DISC DEGENERATION, LUMBAR REGION SNOMED Code(s): 22527623 (10) Lumbar facet arthropathy Current Visit: No Status: Acute Code(s): M47.816 - SPONDYLOSIS W/O MYELOPATHY OR RADICULOPATHY, LUMBAR REGION SNOMED Code(s): 476209076 (11) T12 compression fracture Current Visit: No Status: Acute Code(s): S22.080A - WEDGE COMPRESSION FRACTURE OF T11-T12 VERTEBRA, INIT SNOMED Code(s): 397818777 Plan: Plan: 1. Patient has been discussed in detail with Dr. Cesar Gutierres and Dr. Stein. Imaging has been reviewed by Dr. Gutierres and Dr. Stein as well. After reviewing of imaging, physical examination the patient, and further discussion with the patient, will currently planned to continue with conservative treatment at this time. She has evidence of a right psoas abscess and is being seen by Dr. Stein and Dr. Gomez. Dr. Gomez has placed consultation with interventional radiology who may plan for drainage of the abscess tomorrow, 05/03/2019. Patient has not yet been seen by interventional radiology. We are not currently planning for any surgical intervention from an orthopedic spine standpoint in regards to her right psoas abscess. We will continue conservative treatment in regards to her multiple compression fracture deformities at T12, L3, and L5. Patient does have worsening compression fracture deformity at L3. T12 and L5 compression fractures deformities remained stable. She has not been wearing her LSO brace as prescribed. Patient and family would like to avoid surgical intervention at her lumbar spine. We discussed she should wear this LSO brace while sitting upright at greater than 45, during ambulation, during increase activities. Brace is not have to be worn while lying in bed or bathing. We will plan outpatient follow-up and outpatient setting his previous scheduled. At this time, patient is clear for discharge from orthopedic spine standpoint. Following discharge, patient may follow-up with Trevin Wylie PA-C or Dr. Cesar Gutierres at [facility] as per his he scheduled. 2. Patient will continue to be seen and examined by general surgery, infectious disease, and medicine for other medical diagnoses including right psoas abscess 3. Patient currently for consultation with interventional radiology Time with Patient: Greater than 30 (Including obtaining history, physical examination, reviewing of imaging, and dictation.)
[2019-05-02] MEDS: HYDROcodone/APAP 7.5-325MG 1 EACH TAB PO PRN (19:10)
[2019-05-02] MEDS: VANCOMYCIN 750 MG in SODIUM CHLORIDE 0.9% 250 ML IVPB SCH (20:55)
--- NOTE | 2019-05-02 21:50 | PN ---
PROGRESS NOTE DATE OF SERVICE: 05/02/2019 This 84-year-old woman was admitted with significant abdominal pain, nausea, also thought to have partial small-bowel obstruction. The patient also had acute paraspinal abscess and psoas abscess on the right side. The patient was seen by multiple consultants including Dr. Stein from Surgery and Dr. Gutierres from Orthopedic surgery. Dr. Stein is recommending possible Interventional Radiology drainage. Infectious Disease also following the patient closely. Patient on broad IV antibiotics. Dr. Gutierres has recommend conservative line of treatment at this time. See Dr. Stein and Infectious Disease and Orthopedic notes for further details. PAST MEDICAL HISTORY: Reviewed. REVIEW OF SYSTEMS: Cardiovascular: No angina or palpitations. Respiration: As mentioned earlier. GI: As mentioned earlier. : No dysuria. CENTRAL NERVOUS SYSTEM: No numbness or weakness. CURRENT MEDICATIONS ARE: 1. Tylenol 650 q.6h p.r.n. 2. [place] 7.5 q.6h p.r.n. 3. Cordarone 200 mg b.i.d. 4. Norvasc 2.5 mg. 5. Coreg 6.25 daily. 6. Heparin 5000 subcu b.i.d. 7. Vimpat. 8. Lactinex. 9. Cephulac. 10.Keppra. 11.Lidoderm. 12.Zestril. 13.Vancomycin. 14.Narcan. 15.Nitrostat. 16.Zofran. 17.Protonix. 18.Zosyn. 19.Vancomycin IV. 20.Doses reviewed. PHYSICAL EXAM: Patient is alert, oriented x2. Pulse 76, blood pressure 172/61, respiration 16, temperature 97.9, pulse ox 98% on room air. HEENT: Conjunctivae normal. NECK: No JVD. CARDIOVASCULAR: S1, S2 muffled. RESPIRATORY: Breath sounds diminished in the bases. A few scattered rhonchi and crackles. ABDOMEN: Soft, obese, nontender. LEGS are no edema. No swelling. CENTRAL NERVOUS SYSTEM: No focal deficits. LABS: At this time shows WBC 8.2, hemoglobin is 8. ASSESSMENT: 1. Abdominal pain, nausea, vomiting, possible partial small-bowel obstruction. 2. Possible acute paraspinal psoas abscess on the right. 3. 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 4. Anemia of chronic disease. 5. Hyponatremia. 6. Increased AST and ALT of undetermined etiology. 7. Possible urinary tract infection present on admission. 8. Atrial fibrillation. 9. Diabetes mellitus type 2. 10.Seizure disorder. 11.History of brain aneurysm with seizures. 12.History of T12 fracture. 13.Gait dysfunction. 14.Severe protein calorie malnutrition with BMI of 20.6. 15.FULL CODE. RECOMMENDATIONS AND DISCUSSION: Recommend to continue current medications, management and symptomatic treatment. Otherwise, at this time, I would recommend continue with current antibiotics. Closely monitor with Infectious Disease. Follow the cultures. Orthopedics evaluation noted. Prognosis guarded because of multiple complex medical issues. Discussed with the family and multiple members of family at length. Further recommendations to follow. MMODL / IJN: [id number] /
[2019-05-03] MEDS: PIPERACILLIN-TAZOBACTAM 3.375 GM in SODIUM CHLORIDE 0.9% 100 ML IVPB SCH ×3 (00:03→17:09)
[2019-05-03] MEDS: LACOSAMIDE 50 MG TABLET PO SCH ×2 (04:09→17:07)
[2019-05-03] MEDS: HYDROcodone/APAP 7.5-325MG 1 EACH TAB PO PRN ×3 (04:09→21:48)
[2019-05-03 07:45] LABS: Basophils # (A) 0.1 k/uL (0-0.2); Basophils % (A) 1 %; Eosinophils # (A) 0.1 k/uL (0-0.7); Eosinophils % (A) 1 %; HCT 21.3 % (34.0-46.0); Lymphocytes # (A) 0.8 k/uL (1.0-4.8); Lymphocytes % (A) 9 %; MCHC 32.2 g/dL (31.0-37.0); MCV 93.3 fL (80.0-100.0); Mean Platelet Volume 5.9; Monocytes # (A) 0.6 k/uL (0-1.0); Monocytes % (A) 7 %; Neutrophils # (A) 6.4 k/uL (1.3-7.7); Neutrophils % (A) 79 %; Platelet Count 369 k/uL (150-450); RBC 2.29 m/uL (3.80-5.40); RDW 15.1 % (11.5-15.5); WBC 8.1 k/uL (3.8-10.6)
[2019-05-03 07:46] LABS: Albumin 2.2 g/dL (3.5-5.0); Calcium 7.3 mg/dL (8.4-10.2); Potassium 3.9 mmol/L (3.5-5.1); Total Bilirubin 0.6 mg/dL (0.2-1.3); Total Protein 5.1 g/dL (6.3-8.2)
[2019-05-03 07:49] LABS: HGB 6.9 gm/dL (11.4-16.0)
[2019-05-03] MEDS: LACTOBACILLUS ACIDOPH & BULGAR 1 EACH PACKET PO SCH (08:59)
[2019-05-03] MEDS: HEPARIN SODIUM,PORCINE 5,000 UNIT/ML 1 ML VIAL SQ SCH ×2 (08:59→21:55)
[2019-05-03] MEDS: LISINOPRIL 20 MG TAB PO SCH ×2 (09:10→21:55)
[2019-05-03] MEDS: PANTOPRAZOLE 40 MG/10 ML VIAL IVP SCH (09:10)
[2019-05-03] MEDS: amLODIPine 2.5 MG TAB PO SCH (09:10)
[2019-05-03] MEDS: CARVEDILOL 6.25 MG TAB PO SCH ×2 (09:10→17:07)
[2019-05-03] MEDS: AMIODARONE 200 MG TAB PO SCH (09:10)
[2019-05-03] MEDS: levETIRAcetam ORAL SOLN 500 MG/5 ML CUP PO SCH ×2 (10:02→21:58)
--- NOTE | 2019-05-03 11:00 | CT ---
EXAMINATION TYPE: CT abdomen pelvis wo con DATE OF EXAM: 05/03/2019 COMPARISON: 04/30/2019 HISTORY: nausea, vomiting poor historian CT DLP: 318 mGycm Automated exposure control for dose reduction was used. TECHNIQUE: Helical acquisition of images was performed from the lung bases through the pelvis. FINDINGS: There is worsening fluid overload, much advanced from the prior with new partially visualized pleural effusions and moderate interstitial edema on a background of pulmonary fibrosis and emphysema. Heart is enlarged. Marked low density in the cardiac chambers relates to the known anemia. Trace pericardi al effusion is seen. Moderate coronary calcifications. Diffuse anasarca and mesenteric edema, limitin g evaluation. Lack of intravenous and oral contrast also limits evaluation of the abdomen and pelvis in regards to the hollow and solid viscera. The previously seen rim-enhancing right psoas lesion is much more ill-defined without contrast. This measures approximately 1.0 x 1.3 cm and is similar to the prior. Calcifications are noted in the left psoas. Trace abdominal ascites is present in the hepatorenal fossa. The liver is grossly unremarkable other than mild periportal edema and extra hepatic biliary ductal dilatation. Calculus adjacent to the gall bladder appears to be within the duodenum, not seen on the recent prior. Extensive atherosclerosis of the abdominal aorta and its branches. Moderate degree colonic fecal stasis. Diffuse thickening of th e stomach is again noted. Diffuse osseous demineralization and extensive degenerative changes of the spine are seen with redemo nstration of a subacute fracture of L3 and chronic compression deformity of L5. Unenhanced appearance of the kidneys, adrenal glands, gallbladder, and spleen are unremarkable. Chronic compression deform ity of T12 is also seen. IMPRESSION: 1. 1. PROGRESSIVE FLUID OVERLOAD WITH NEW PARTIALLY VISUALIZED PLEURAL EFFUSIONS, MODERATE INTERSTITI AL PULMONARY EDEMA ON A BACKGROUND OF PULMONARY FIBROSIS, TRACE PERICARDIAL EFFUSION, ANASARCA, AND M ESENTERIC EDEMA WITH TRACE AMOUNT OF ASCITES. 2. OVERALL SIMILAR APPEARANCE OF THE RIGHT PSOAS LESION, PROBABLE ABSCESS ALTHOUGH SUBOPTIMALLY EVALU ATED WITHOUT CONTRAST. 3. DIFFUSE THICKENING OF THE STOMACH. ENDOSCOPY COULD BE CONSIDERED ALTHOUGH THIS COULD RELATE TO INC OMPLETE DISTENTION. 4. MARKED LOW-DENSITY OF THE BLOOD POOL WITHIN THE CARDIAC CHAMBERS RELATES TO THE PATIENT'S KNOWN AN EMIA. CARDIOMEGALY IS ALSO SEEN. 5. REDEMONSTRATION OF A SUBACUTE L3 COMPRESSION DEFORMITY AND CHRONIC COMPRESSION DEFORMITIES OF L5 A ND T12.
[2019-05-03 11:22] LABS: HCT 22.2 % (34.0-46.0); HGB 7.1 gm/dL (11.4-16.0); MCH 30.2 pg (25.0-35.0); MCHC 32.2 g/dL (31.0-37.0); MCV 93.7 fL (80.0-100.0); Mean Platelet Volume 5.6; Platelet Count 382 k/uL (150-450); RBC 2.37 m/uL (3.80-5.40); WBC 7.5 k/uL (3.8-10.6)
[2019-05-03] MEDS: LIDOCAINE 5% PATCH TOPICAL SCH (12:08)
--- NOTE | 2019-05-03 14:43 | XR ---
EXAMINATION TYPE: XR chest 1V portable DATE OF EXAM: 05/03/2019 COMPARISON: 05/01/2019 HISTORY: Hypoxia TECHNIQUE: Single frontal view of the chest is obtained. FINDINGS: Right basilar opacity has improved. Diffuse interstitial prominence is unchanged. Left bas ilar airspace disease is now seen near the costophrenic angle. Minimal biapical pleural parenchymal s carring. Retrocardiac opacity likely represents a hernia. Cardia mediastinal silhouette is mildly enl arged. Diffuse osseous demineralization. IMPRESSION: Chronic background interstitial prominence. Shifting atelectasis or confluent edema, imp roved in the right and worsened on left. Overall fluid overload is similar in degree.
[2019-05-03] MEDS ORDERED: FUROSEMIDE 10 MG/ML 2 ML VIAL IV ONE (18:07)
[2019-05-03] MEDS ORDERED: VANCOMYCIN TROUGH DUE 1 EACH MISC MISCELLANE ONE (20:00)
--- NOTE | 2019-05-03 21:08 | P.PN ---
Subjective Progress Note Date: 05/03/19 84-year-old female who is cared for by her family members in the family home has had a progressively declining status but they've had no difficulty managing her in the home setting. She has no difficulties with any skin breakdown and up until very recently she was eating relatively well. [facility] er over the last few days developed nausea and emesis and wasn't feeling well. There is grade difficulties even getting out of her medication down with applesauce. She became weaker and was complaining of increasing amounts of back pain. She was seen by her primary care physician and then sent to the emergency center for further evaluation. She has chronic back pain with an old L3 compression fracture and has been seen by orthopedic surgery in the past. She is not thought to be a good surgical candidate and back bracing was suggested. The patient now presents with a significant GI symptoms and computed tomography scan was performed with evidence of worsening of the L3 compression fracture and evidence of a new fluid collection 1.5 cm in the left paraspinal region. With this the consult is requested. The patient has already been evaluated by general surgery.the patient herself is able to give very little history, the family members were present are very helpful. 05/03/2019 the patient is evaluated. Her children who care for her are in the room. Her mental status is not significantly different than what they would think his baseline. She's been available by orthopedics as well as general surgery. Radiology has evaluated and did not believe she was a candidate for percutaneous drainage of the very small psoas abscess Objective - Vital Signs Vital signs: Vital Signs Temp 98.1 F 05/03/19 19:41 Pulse 58 L 05/03/19 19:41 Resp 18 05/03/19 19:41 BP 136/61 05/03/19 19:41 Pulse Ox 90 L 05/03/19 19:41 Intake & Output 05/03/19 05/03/19 05/04/19 06:59 18:59 06:59 Other: # Voids 3 3 - Exam HEENT: Anicteric conjunctiva are pink and moist nasal mucosa grossly intact without significant lesions, there is no thrush.positive denture Neck: The neck is supple without significant lymphadenopathy or thyromegaly. Lungs: Good bilateral air entry without significant crackles or wheezing. There is no significant bronchial sounds. There is no egophony or dullness. Heart: irregular positive S4 no murmur click or rub Abdomen: scaphoid,Positive bowel sounds soft and nontender without palpable masses or organomegaly. There was no guarding or rebound. Extremities: The upper extremities have excellent pulses they are symmetric, no significant petechiae or telangiectasia. No splinter hemorrhages were noted. The lower extremities are free from significant edema. The peripheral pulses were 2+ and symmetric. Skin: The patient is very thin the vertebrae are easily seen at each level, she has significant osteoporosis with some scoliosis. There are no open ulcerations, but there is distinct tenderness over the lumbar spine. I can palp ate no significant mass there is no warmth or erythema. There is nothing fluctuant. Neuro: Awake alert oriented to person is not able to identify her children. - Labs CBC & Chem 7: 05/03/19 11:02 05/03/19 06:41 Labs: Abnormal Lab Results - Last 24 Hours (Table) 05/03/19 05/03/19 05/03/19 Range/Units 06:41 06:41 11:02 RBC 2.29 L 2.37 L (3.80-5.40) m/uL Hgb 6.9 L* 7.1 L (11.4-16.0) gm/dL Hct 21.3 L 22.2 L (34.0-46.0) % Lymphocytes # 0.8 L (1.0-4.8) k/uL Sodium 132 L (137-145) mmol/L Chloride 96 L (98-107) mmol/L Carbon Dioxide 32 H (22-30) mmol/L Calcium 7.3 L (8.4-10.2) mg/dL AST 49 H (14-36) U/L Total Protein 5.1 L (6.3-8.2) g/dL Albumin 2.2 L (3.5-5.0) g/dL Microbiology - Last 24 Hours (Table) 04/30/19 23:21 Blood Culture - Preliminary Blood No Growth after 48 hours Laboratory Results WBC 7.5 k/uL (3.8-10.6) 05/03/19 11:02 RBC 2.37 m/uL (3.80-5.40) L 05/03/19 11:02 Hgb 7.1 gm/dL (11.4-16.0) L 05/03/19 11:02 Hct 22.2 % (34.0-46.0) L 05/03/19 11:02 MCV 93.7 fL (80.0-100.0) 05/03/19 11:02 MCH 30.2 pg (25.0-35.0) 05/03/19 11:02 MCHC 32.2 g/dL (31.0-37.0) 05/03/19 11:02 RDW 15.0 % (11.5-15.5) 05/03/19 11:02 Plt Count 382 k/uL (150-450) 05/03/19 11:02 Neutrophils % 79 % 05/03/19 06:41 Lymphocytes % 9 % 05/03/19 06:41 Monocytes % 7 % 05/03/19 06:41 Eosinophils % 1 % 05/03/19 06:41 Basophils % 1 % 05/03/19 06:41 Neutrophils # 6.4 k/uL (1.3-7.7) 05/03/19 06:41 Lymphocytes # 0.8 k/uL (1.0-4.8) L 05/03/19 06:41 Monocytes # 0.6 k/uL (0-1.0) 05/03/19 06:41 Eosinophils # 0.1 k/uL (0-0.7) 05/03/19 06:41 Basophils # 0.1 k/uL (0-0.2) 05/03/19 06:41 Hypochromasia Slight 05/02/19 08:45 ESR 35 mm/hr (0-20) H 05/01/19 15:51 PT 11.6 sec (9.0-12.0) 05/01/19 15:51 INR 1.1 (<1.2) 05/01/19 15:51 Sodium 132 mmol/L (137-145) L 05/03/19 06:41 Potassium 3.9 mmol/L (3.5-5.1) 05/03/19 06:41 Chloride 96 mmol/L (98-107) L 05/03/19 06:41 Carbon Dioxide 32 mmol/L (22-30) H 05/03/19 06:41 Anion Gap 4 mmol/L 05/03/19 06:41 BUN 13 mg/dL (7-17) 05/03/19 06:41 Creatinine 0.80 mg/dL (0.52-1.04) 05/03/19 06:41 Est GFR (CKD-EPI)AfAm 78 (>60 ml/min/1.73 sqM) 05/03/19 06:41 Est GFR (CKD-EPI)NonAf 68 (>60 ml/min/1.73 sqM) 05/03/19 06:41 Glucose 77 mg/dL (74-99) 05/03/19 06:41 POC Glucose (mg/dL) 134 mg/dL (75-99) H 05/02/19 11:56 POC Glu Director Of Individual Giving Taylor Riddle 05/02/19 11:56 Plasma Lactic Acid Babak 1.0 mmol/L (0.7-2.0) 04/30/19 19:20 Calcium 7.3 mg/dL (8.4-10.2) L 05/03/19 06:41 Total Bilirubin 0.6 mg/dL (0.2-1.3) 05/03/19 06:41 AST 49 U/L (14-36) H 05/03/19 06:41 ALT 51 U/L (9-52) 05/03/19 06:41 Alkaline Phosphatase 108 U/L (38-126) 05/03/19 06:41 C-Reactive Protein 85.9 mg/L (<10.0) H 05/01/19 15:51 Total Protein 5.1 g/dL (6.3-8.2) L 05/03/19 06:41 Albumin 2.2 g/dL (3.5-5.0) L 05/03/19 06:41 Amylase 61 U/L (30-110) 04/30/19 19:20 Lipase 21 U/L (23-300) L 04/30/19 19:20 Urine Color Yellow 04/30/19 19:20 Urine Appearance Cloudy (Clear) H 04/30/19 19:20 Urine pH 6.0 (5.0-8.0) 04/30/19 19:20 Ur Specific [place] 1.019 (1.001-1.035) 04/30/19 19:20 Urine Protein Trace (Negative) H 04/30/19 19:20 Urine Glucose (UA) Negative (Negative) 04/30/19 19:20 Urine Ketones Trace (Negative) H 04/30/19 19:20 Urine Blood Trace (Negative) H 04/30/19 19:20 Urine Nitrite Negative (Negative) 04/30/19 19:20 Urine Bilirubin Negative (Negative) 04/30/19 19:20 Urine Urobilinogen <2.0 mg/dL (<2.0) 04/30/19 19:20 Ur Leukocyte Esterase Large (Negative) H 04/30/19 19:20 Urine RBC 1 /hpf (0-5) 04/30/19 19:20 Urine WBC 35 /hpf (0-5) H 04/30/19 19:20 Ur Squamous Epith Cells 4 /hpf (0-4) 04/30/19 19:20 Urine Bacteria Occasional /hpf (None) H 04/30/19 19:20 Urine Mucus Rare /hpf (None) H 04/30/19 19:20 Microbiology 04/30/19 23:21 Blood Blood Culture - Preliminary No Growth after 48 hours Assessment and Plan (1) Chronic back pain greater than 3 months duration Current Visit: Yes Status: Acute Code(s): M54.9 - DORSALGIA, UNSPECIFIED; G89.29 - OTHER CHRONIC PAIN SNOMED Code(s): 698747962660 (2) Nausea & vomiting Current Visit: Yes Status: Acute Code(s): R11.2 - NAUSEA WITH VOMITING, UNSPECIFIED SNOMED Code(s): 44042002 (3) Compression fracture of L3 vertebra Current Visit: No Status: Acute Code(s): S32.030A - WEDGE COMPRESSION FRACTURE OF THIRD LUMBAR VERTEBRA, INIT SNOMED Code(s): 678944837 (4) Paraspinal abscess Narrative/Plan: 84-year-old woman who has advanced dementia presents to hospital with nausea emesis and difficulty with increasing dehydration. Family who cares for in the home setting were concerned and she presented to the emergency center. Shortly after arrival she received IV fluids and has had no further bouts of nausea or emesis. She's also not had significant diarrhea. Because of her nausea and emesis and advanced age computed tomography scan of th e abdomen and pelvis was performed without evidence of obstruction, diverticulitis or intra-abdominal abscess. However a paraspinous abscess was noted at the L3 level with worsening of her prior compression fracture. Because she was acutely ill at admission there is concern that this site can be an abscess because we have asked for interventional radiology to perform an aspiration of the site to characterize the fluid to then be able to develop a distinct plan. Been seen by general surgery with no plans for surgical attention to this site. Blood cultures in process. The family is made aware of current plans. 05/03/2019. Little change of the patient's status. She's been evaluated by [facility] surgery as well as orthopedic surgery. Another service believes that she is a surgical candidate. Interventional radiology did not believe the very small fluid collection was not amenable to percutaneous drainage. The patient is a very poor surgical candidate. The current plan will be to monitor blood culture. If this is negative within plan placement of IV access so that she can receive a course of intravenous antibiotic therapy at the [facility] care facility. The family is willing to have her go to rehab where she'll receive some therapy and her antibiotic therapy. Given the small nature of this abscess to be amenable to antibiotic therapy. The family understands that she is not a good surgical candidate. And if she has any worsening of her status would need to go to a tertiary care center for evaluation. Current Visit: Yes Status: Acute Code(s): M46.20 - OSTEOMYELITIS OF VERTEBRA, SITE UNSPECIFIED SNOMED Code(s): 54134053146581949
[2019-05-03] MEDS: VANCOMYCIN 750 MG in SODIUM CHLORIDE 0.9% 250 ML IVPB SCH (21:55)
[2019-05-04] MEDS: PIPERACILLIN-TAZOBACTAM 3.375 GM in SODIUM CHLORIDE 0.9% 100 ML IVPB SCH ×3 (01:01→16:51)
[2019-05-04] MEDS: LACOSAMIDE 50 MG TABLET PO SCH ×2 (05:35→16:51)
[2019-05-04 07:44] LABS: Basophils # (A) 0.1 k/uL (0-0.2); Basophils % (A) 1 %; Eosinophils # (A) 0.1 k/uL (0-0.7); Eosinophils % (A) 1 %; HGB 7.7 gm/dL (11.4-16.0); Lymphocytes # (A) 0.5 k/uL (1.0-4.8); Lymphocytes % (A) 6 %; MCH 29.8 pg (25.0-35.0); Mean Platelet Volume 5.7; Monocytes # (A) 0.6 k/uL (0-1.0); Monocytes % (A) 6 %; Neutrophils # (A) 7.4 k/uL (1.3-7.7); Neutrophils % (A) 84 %; Platelet Count 356 k/uL (150-450); RBC 2.58 m/uL (3.80-5.40); WBC 8.9 k/uL (3.8-10.6)
[2019-05-04 07:47] LABS: Albumin 2.5 g/dL (3.5-5.0); Calcium 7.6 mg/dL (8.4-10.2); Potassium 3.4 mmol/L (3.5-5.1); Total Bilirubin 0.7 mg/dL (0.2-1.3); Total Protein 5.5 g/dL (6.3-8.2)
[2019-05-04] MEDS: PANTOPRAZOLE 40 MG TABLET PO SCH (08:21)
[2019-05-04] MEDS: amLODIPine 2.5 MG TAB PO SCH (08:21)
[2019-05-04] MEDS: CARVEDILOL 6.25 MG TAB PO SCH ×2 (08:21→16:51)
[2019-05-04] MEDS: LACTOBACILLUS ACIDOPH & BULGAR 1 EACH PACKET PO SCH (08:22)
[2019-05-04] MEDS: LISINOPRIL 20 MG TAB PO SCH ×2 (08:22→20:14)
[2019-05-04] MEDS: AMIODARONE 200 MG TAB PO SCH (08:22)
[2019-05-04] MEDS: LIDOCAINE 5% PATCH TOPICAL SCH (08:23)
[2019-05-04] MEDS: levETIRAcetam ORAL SOLN 500 MG/5 ML CUP PO SCH ×2 (08:24→20:14)
[2019-05-04] MEDS: HEPARIN SODIUM,PORCINE 5,000 UNIT/ML 1 ML VIAL SQ SCH ×2 (08:26→20:13)
--- NOTE | 2019-05-04 09:19 | P.PN ---
Subjective Progress Note Date: 05/03/19 Principal diagnosis: This is an 84-year-old female was recently admitted with significant abdominal pain, nausea, also thought to have partial bowel obstruction and is being closely monitored. Patient was also found to have an acute paraspinal abscess and psoas abscess on the right side. Multiple medical consultations are following including infectious disease, orthopedic surgery, and surgery. Patient is maintained on IV antibiotics in the form of Zosyn and Vanco will continue at this time. Per the orthopedic surgery, Dr. Gutierres is recommending conservative line of treatment at this time. Patient's hemoglobin this morning was 6.9 and ordered a repeat came back as 7.1. Patient underwent a CAT scan of the abdomen and pelvis without contrast showing progressive fluid overload with some moderate interstitial pulmonary edema with a trace of pericardial effusion, anasarca, and mesenteric edema with a trace amount of ascites. A chest x-ray was also done showing shifting atelectasis circumflex lymphedema that's improved on the right and worsened on left with overall fluid overload that similar in degree. Patient denies any chest pain, shortness of breath, or palpitations at this time. Patient is afebrile. Patient denies any nausea or vomiting and is tolerating diet. Blood cultures thus far are negative. Guarded prognosis. Will continue to monitor closely. REVIEW OF SYSTEMS: CARDIOVASCULAR: Denies chest pain or palpitations RESPIRATORY: Reports of shortness of breath or cough GI: No nausea, vomiting or diarrhea. : No dysuria or retention. NERVOUS SYSTEM: No numbness or weakness. HEMATOLOGY/ONCOLOGY: Reports history of anemia. ENDOCRINE: Reports history of diabetes Active Medications Acetaminophen (Tylenol Tab) 650 mg PO Q6HR PRN Acetaminophen (Tylenol Tab) 1,000 mg PO Q4H PRN Hydrocodone Bitart/Acetaminophen ([place] 7.5-325) 1 each PO Q6H PRN Amiodarone HCl (Cordarone) 200 mg PO DAILY [facility] Amlodipine Besylate (Norvasc) 2.5 mg PO DAILY [facility] Carvedilol (Coreg) 6.25 mg PO BID-W/MEALS [facility] Heparin Sodium (Porcine) (Heparin) 5,000 unit SQ Q12HR [facility] Piperacillin Sod/Tazobactam (Sod 3.375 gm/ Sodium Chloride) 100 mls @ 25 mls/hr IVPB Q8HR [facility] Vancomycin HCl 750 mg/ Sodium (Chloride) 250 mls @ 125 mls/hr IVPB Q16H [facility] Lacosamide (Vimpat) 50 mg PO BID@0500,1700 [facility] Lactobacillus Acidoph/Bulgaricus (Lactinex) 1 each PO W/BRKFST [facility] Lactulose (Cephulac) 10 gm PO DAILY PRN Levetiracetam (Keppra Oral Soln) 100 mg PO BID [facility] Lidocaine (Lidoderm) 1 patch TOPICAL DAILY [facility] Lisinopril (Zestril) 20 mg PO BID [facility] Naloxone HCl (Narcan) 0.2 mg IV Q2M PRN Nitroglycerin (Nitrostat) 0.4 mg SUBLINGUAL Q5M PRN Pantoprazole Sodium (Protonix) 40 mg PO AC-BRKFST EMIL[facility]NA Objective - Vital Signs Vital signs: Vital Signs Temp 98.3 F 05/03/19 07:00 Pulse 71 05/03/19 07:00 Resp 16 05/03/19 07:00 BP 176/53 05/03/19 07:00 Pulse Ox 91 L 05/03/19 07:00 Intake & Output 05/02/19 05/03/19 05/03/19 18:59 06:59 18:59 Intake Total 658 Output Total 400 Balance 258 Intake: Oral 658 Output: Urine 400 Other: # Voids 1 3 - Exam Gen: This is a 84-year-old female lying in bed in no acute distress with family at the bedside. Vital signs are stable. Temp is 98.3F, pulse is 71, respirations are 16, blood pressure is 176/53, oxygen saturation is 91% on room air. HEENT: Head is atraumatic, normocephalic. Pupils equal, round. Sclerae is anicteric. NECK: Supple. No JVD. No lymphadenopathy. No thyromegaly. LUNGS: Breath sounds are diminished at the bases with a few scattered crackles and rhonchi noted. No intercostal retractions. HEART: S1, S2 are muffled ABDOMEN: Soft. Obese. Bowel sounds are present. No masses. No tenderness. EXTREMITIES: No pedal edema. No calf tenderness. NEUROLOGICAL: Patient is awake, alert and oriented x2. No focal deficits - Labs CBC & Chem 7: 05/04/19 06:56 05/04/19 06:56 Labs: Abnormal Lab Results - Last 24 Hours (Table) 05/03/19 05/03/19 05/03/19 Range/Units 06:41 06:41 11:02 RBC 2.29 L 2.37 L (3.80-5.40) m/uL Hgb 6.9 L* 7.1 L (11.4-16.0) gm/dL Hct 21.3 L 22.2 L (34.0-46.0) % Lymphocytes # 0.8 L (1.0-4.8) k/uL Sodium 132 L (137-145) mmol/L Chloride 96 L (98-107) mmol/L Carbon Dioxide 32 H (22-30) mmol/L Calcium 7.3 L (8.4-10.2) mg/dL AST 49 H (14-36) U/L Total Protein 5.1 L (6.3-8.2) g/dL Albumin 2.2 L (3.5-5.0) g/dL Microbiology - Last 24 Hours (Table) 04/30/19 23:21 Blood Culture - Preliminary Blood No Growth after 48 hours Assessment and Plan Assessment: Abdominal pain, nausea, vomiting, possible partial small bowel obstruction Possible acute paraspinal psoas abscess on the right 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 Multiple medical consultations are following. Will continue to monitor closely. Patient is to continue on IV antibiotics at this time and infectious disease is following closely. Blood cultures thus far are negative and will continue to monitor. Case management and social work are following for possible rehab placement upon discharge and will work with infectious disease for possible IV antibiotic therapy in the outpatient setting. Due to multiple complex medical issues prognosis is extremely guarded. Multiple family members present and discuss with them at length about the current course of treatment and will continue to monitor closely. Further recommendations to follow.
[2019-05-04] MEDS ORDERED: VANCOMYCIN 750 MG in SODIUM CHLORIDE 0.9% 250 ML IVPB SCH (14:00)
[2019-05-04] MEDS: HYDROcodone/APAP 7.5-325MG 1 EACH TAB PO PRN (20:16)
--- NOTE | 2019-05-04 22:35 | P.PN ---
Subjective Progress Note Date: 05/04/19 Principal diagnosis: This is an 84-year-old female was recently admitted with significant abdominal pain, nausea, also thought to have partial bowel obstruction and is being closely monitored. Patient was also found to have an acute paraspinal abscess and psoas abscess on the right side. Multiple medical consultations are following including infectious disease, orthopedic surgery, and surgery. Patient is maintained on IV antibiotics in the form of Zosyn and Vanco will continue at this time. Per the orthopedic surgery, Dr. Gutierres is recommending conservative line of treatment at this time. Patient's hemoglobin this morning was 6.9 and ordered a repeat came back as 7.1. Patient underwent a CAT scan of the abdomen and pelvis without contrast showing progressive fluid overload with some moderate interstitial pulmonary edema with a trace of pericardial effusion, anasarca, and mesenteric edema with a trace amount of ascites. A chest x-ray was also done showing shifting atelectasis circumflex lymphedema that's improved on the right and worsened on left with overall fluid overload that similar in degree. Patient denies any chest pain, shortness of breath, or palpitations at this time. Patient is afebrile. Patient denies any nausea or vomiting and is tolerating diet. Blood cultures thus far are negative. Guarded prognosis. Will continue to monitor closely. 05/04/2019 Patient is lying in bed in no acute distress. No acute overnight issues. No family at the bedside today. Patient is pleasant and responds to commands but is confused. Patient is currently awaiting placement in an ECF for continued IV antibiotic therapy as well as physical therapy for strength and mobility. Blood cultures thus far are negative. Patient denies any chest pain, palpitations, or shortness of breath at this time. Patient is afebrile. Patient denies any nausea or vomiting and is tolerating diet. Patient is lying comfortably on room air in no distress. Per surgery, patient is not a surgical candidate and will treat conservatively at this time. Guarded prognosis. Will continue to monitor closely. Objective - Vital Signs Vital signs: Vital Signs Temp 98.2 F 05/04/19 15:21 Pulse 66 05/04/19 15:21 Resp 18 05/04/19 15:21 BP 168/56 05/04/19 15:21 Pulse Ox 95 05/04/19 15:21 Intake & Output 1105/04/19 05/05/19 06:59 18:59 06:59 Intake Total 420 Output Total 830 Balance -830 420 Intake: Oral 420 Output: Urine 830 Other: Voiding Method Bedpan Bedpan # Voids 2 2 # Bowel Movements 1 - Exam Gen: This is a 84-year-old female lying in bed in no acute distress. Vital signs are stable. Temp is 98.7F, pulse is 62, respirations are 15, blood pressure is 137/45, oxygen saturation is 95% on room air. HEENT: Head is atraumatic, normocephalic. Pupils equal, round. Sclerae is a nicteric. NECK: Supple. No JVD. No lymphadenopathy. No thyromegaly. LUNGS: Breath sounds are diminished at the bases with a few scattered crackles noted. No intercostal retractions. HEART: S1, S2 are muffled ABDOMEN: Soft. Bowel sounds are present. No masses. No tenderness. EXTREMITIES: No pedal edema. No calf tenderness. NEUROLOGICAL: Patient is awake, alert and oriented x2. No focal deficits - Labs CBC & Chem 7: 05/04/19 06:56 05/04/19 06:56 Labs: Abnormal Lab Results - Last 24 Hours (Table) 05/04/19 05/04/19 Range/Units 06:56 06:56 RBC 2.58 L (3.80-5.40) m/uL Hgb 7.7 L (11.4-16.0) gm/dL Hct 24.0 L (34.0-46.0) % Lymphocytes # 0.5 L (1.0-4.8) k/uL Sodium 133 L (137-145) mmol/L Potassium 3.4 L (3.5-5.1) mmol/L Chloride 95 L (98-107) mmol/L Carbon Dioxide 33 H (22-30) mmol/L Calcium 7.6 L (8.4-10.2) mg/dL AST 54 H (14-36) U/L ALT 57 H (9-52) U/L Total Protein 5.5 L (6.3-8.2) g/dL Albumin 2.5 L (3.5-5.0) g/dL Microbiology - Last 24 Hours (Table) 04/30/19 23:21 Blood Culture - Preliminary Blood No Growth after 72 hours Assessment and Plan Assessment: Abdominal pain, nausea, vomiting, possible partial small bowel obstruction Possible acute paraspinal psoas abscess on the right 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 Multiple medical consultations are following. Will continue to monitor closely. Patient is to continue on IV antibiotics at this time and infectious disease is following closely. Blood cultures thus far are negative and will continue to monitor. Case management and social work are following for possible rehab placement upon discharge and will work with infectious disease for possible IV antibiotic therapy in the outpatient setting. Due to multiple complex medical issues prognosis is extremely guarded. Will continue to monitor closely. Further recommendations to follow. Possible discharge in 24-48 hours.
--- NOTE | 2019-05-04 23:47 | P.PN ---
Subjective Progress Note Date: 05/04/19 84-year-old female who is cared for by her family members in the family home has had a progressively declining status but they've had no difficulty managing her in the home setting. She has no difficulties with any skin breakdown and up until very recently she was eating relatively well. [facility] er over the last few days developed nausea and emesis and wasn't feeling well. There is grade difficulties even getting out of her medication down with applesauce. She became weaker and was complaining of increasing amounts of back pain. She was seen by her primary care physician and then sent to the emergency center for further evaluation. She has chronic back pain with an old L3 compression fracture and has been seen by orthopedic surgery in the past. She is not thought to be a good surgical candidate and back bracing was suggested. The patient now presents with a significant GI symptoms and computed tomography scan was performed with evidence of worsening of the L3 compression fracture and evidence of a new fluid collection 1.5 cm in the left paraspinal region. With this the consult is requested. The patient has already been evaluated by general surgery.the patient herself is able to give very little history, the family members were present are very helpful. 05/03/2019 the patient is evaluated. Her children who care for her are in the room. Her mental status is not significantly different than what they would think his baseline. She's been available by orthopedics as well as general surgery. Radiology has evaluated and did not believe she was a candidate for percutaneous drainage of the very small psoas abscess 05/04/2019 the patient is comfortable. Her pain is tolerable only when she is laying still.. Objective - Vital Signs Vital signs: Vital Signs Temp 98.2 F 05/04/19 15:21 Pulse 66 05/04/19 15:21 Resp 18 05/04/19 15:21 BP 168/56 05/04/19 15:21 Pulse Ox 95 05/04/19 15:21 Intake & Output 05/04/19 05/04/19 05/05/19 06:59 18:59 06:59 Intake Total 420 Output Total 830 Balance -830 420 Intake: Oral 420 Output: Urine 830 Other: Voiding Method Bedpan Bedpan # Voids 2 2 # Bowel Movements 1 - Exam HEENT: Anicteric conjunctiva are pink and moist nasal mucosa grossly intact without significant lesions, there is no thrush.positive denture Neck: The neck is supple without significant lymphadenopathy or thyromegaly. Lungs: Good bilateral air entry without significant crackles or wheezing. There is no significant bronchial sounds. There is no egophony or dullness. Heart: irregular positive S4 no murmur click or rub Abdomen: scaphoid,Positive bowel sounds soft and nontender without palpable masses or organomegaly. There was no guarding or rebound. Extremities: The upper extremities have excellent pulses they are symmetric, no significant petechiae or telangiectasia. No splinter hemorrhages were noted. The lower extremities are free from significant edema. The peripheral pulses were 2+ and symmetric. Skin: The patient is very thin the vertebrae are easily seen at each level, she has significant osteoporosis with some scoliosis. There are no open ulceratio ns, but there is distinct tenderness over the lumbar spine. I can palpate no significant mass there is no warmth or erythema. There is nothing fluctuant. Neuro: Awake alert oriented to person is not able to identify her children. - Labs CBC & Chem 7: 05/04/19 06:56 05/04/19 06:56 Labs: Abnormal Lab Results - Last 24 Hours (Table) 05/04/19 05/04/19 Range/Units 06:56 06:56 RBC 2.58 L (3.80-5.40) m/uL Hgb 7.7 L (11.4-16.0) gm/dL Hct 24.0 L (34.0-46.0) % Lymphocytes # 0.5 L (1.0-4.8) k/uL Sodium 133 L (137-145) mmol/L Potassium 3.4 L (3.5-5.1) mmol/L Chloride 95 L (98-107) mmol/L Carbon Dioxide 33 H (22-30) mmol/L Calcium 7.6 L (8.4-10.2) mg/dL AST 54 H (14-36) U/L ALT 57 H (9-52) U/L Total Protein 5.5 L (6.3-8.2) g/dL Albumin 2.5 L (3.5-5.0) g/dL Microbiology - Last 24 Hours (Table) 04/30/19 23:21 Blood Culture - Preliminary Blood No Growth after 72 hours Laboratory Results WBC 8.9 k/uL (3.8-10.6) 05/04/19 06:56 RBC 2.58 m/uL (3.80-5.40) L 05/04/19 06:56 Hgb 7.7 gm/dL (11.4-16.0) L 05/04/19 06:56 Hct 24.0 % (34.0-46.0) L 05/04/19 06:56 MCV 93.0 fL (80.0-100.0) 05/04/19 06:56 MCH 29.8 pg (25.0-35.0) 05/04/19 06:56 MCHC 32.0 g/dL (31.0-37.0) 05/04/19 06:56 RDW 15.0 % (11.5-15.5) 05/04/19 06:56 Plt Count 356 k/uL (150-450) 05/04/19 06:56 Neutrophils % 84 % 05/04/19 06:56 Lymphocytes % 6 % 05/04/19 06:56 Monocytes % 6 % 05/04/19 06:56 Eosinophils % 1 % 05/04/19 06:56 Basophils % 1 % 05/04/19 06:56 Neutrophils # 7.4 k/uL (1.3-7.7) 05/04/19 06:56 Lymphocytes # 0.5 k/uL (1.0-4.8) L 05/04/19 06:56 Monocytes # 0.6 k/uL (0-1.0) 05/04/19 06:56 Eosinophils # 0.1 k/uL (0-0.7) 05/04/19 06:56 Basophils # 0.1 k/uL (0-0.2) 05/04/19 06:56 Hypochromasia Slight 05/02/19 08:45 ESR 35 mm/hr (0-20) H 05/01/19 15:51 PT 11.6 sec (9.0-12.0) 05/01/19 15:51 INR 1.1 (<1.2) 05/01/19 15:51 Sodium 133 mmol/L (137-145) L 05/04/19 06:56 Potassium 3.4 mmol/L (3.5-5.1) L 05/04/19 06:56 Chloride 95 mmol/L (98-107) L 05/04/19 06:56 Carbon Dioxide 33 mmol/L (22-30) H 05/04/19 06:56 Anion Gap 5 mmol/L 05/04/19 06:56 BUN 12 mg/dL (7-17) 05/04/19 06:56 Creatinine 0.83 mg/dL (0.52-1.04) 05/04/19 06:56 Est GFR (CKD-EPI)AfAm 75 (>60 ml/min/1.73 sqM) 05/04/19 06:56 Est GFR (CKD-EPI)NonAf 65 (>60 ml/min/1.73 sqM) 05/04/19 06:56 Glucose 93 mg/dL (74-99) 05/04/19 06:56 POC Glucose (mg/dL) 134 mg/dL (75-99) H 05/02/19 11:56 POC Glu Rn Visiting [facility] 05/02/19 11:56 Plasma Lactic Acid [place] 1.0 mmol/L (0.7-2.0) 04/30/19 19:20 Calcium 7.6 mg/dL (8.4-10.2) L 05/04/19 06:56 Total Bilirubin 0.7 mg/dL (0.2-1.3) 05/04/19 06:56 AST 54 U/L (14-36) H 05/04/19 06:56 ALT 57 U/L (9-52) H 05/04/19 06:56 Alkaline Phosphatase 117 U/L (38-126) 05/04/19 06:56 C-Reactive Protein 85.9 mg/L (<10.0) H 05/01/19 15:51 Total Protein 5.5 g/dL (6.3-8.2) L 05/04/19 06:56 Albumin 2.5 g/dL (3.5-5.0) L 05/04/19 06:56 Amylase 61 U/L (30-110) 04/30/19 19:20 Lipase 21 U/L (23-300) L 04/30/19 19:20 Urine Color Yellow 04/30/19 19:20 Urine Appearance Cloudy (Clear) H 04/30/19 19:20 Urine pH 6.0 (5.0-8.0) 04/30/19 19:20 Ur Specific [place] 1.019 (1.001-1.035) 04/30/19 19:20 Urine Protein Trace (Negative) H 04/30/19 19:20 Urine Glucose (UA) Negative (Negative) 04/30/19 19:20 Urine Ketones Trace (Negative) H 04/30/19 19:20 Urine Blood Trace (Negative) H 04/30/19 19:20 Urine Nitrite Negative (Negative) 04/30/19 19:20 Urine Bilirubin Negative (Negative) 04/30/19 19:20 Urine Urobilinogen <2.0 mg/dL (<2.0) 04/30/19 19:20 Ur Leukocyte Esterase Large (Negative) H 04/30/19 19:20 Urine RBC 1 /hpf (0-5) 04/30/19 19:20 Urine WBC 35 /hpf (0-5) H 04/30/19 19:20 Ur Squamous Epith Cells 4 /hpf (0-4) 04/30/19 19:20 Urine Bacteria Occasional /hpf (None) H 04/30/19 19:20 Urine Mucus Rare /hpf (None) H 04/30/19 19:20 Vancomycin Trough 9.2 ug/mL 05/03/19 20:16 Microbiology 04/30/19 23:21 Blood Blood Culture - Preliminary No Growth after 72 hours Assessment and Plan (1) Chronic back pain greater than 3 months duration Current Visit: Yes Status: Acute Code(s): M54.9 - DORSALGIA, UNSPECIFIED; G89.29 - OTHER CHRONIC PAIN SNOMED Code(s): 438705437895 (2) Nausea & vomiting Current Visit: Yes Status: Acute Code(s): R11.2 - NAUSEA WITH VOMITING, UNSPECIFIED SNOMED Code(s): 46557510 (3) Compression fracture of L3 vertebra Current Visit: No Status: Acute Code(s): S32.030A - WEDGE COMPRESSION FRACTURE OF THIRD LUMBAR VERTEBRA, INIT SNOMED Code(s): 900271024 (4) Paraspinal abscess Narrative/Plan: 84-year-old woman who has advanced dementia presents to hospital with nausea emesis and difficulty with increasing dehydration. Family who cares for in the home setting were concerned and she presented to the emergency center. Shortly after arrival she received IV fluids and has had no further bouts of nausea or emesis. She's also not had significant diarrhea. Because of her nausea and emesis and advanced age computed tomography scan of the abdomen and pelvis was performed without evidence of obstruction, diverticulitis or intra-abdominal abscess. However a paraspinous abscess was noted at the L3 level with worsening of her prior compression fracture. Because she was acutely ill at admission there is concern that this site can be an abscess because we have asked for interventional radiology to perform an aspiration of the site to characterize the fluid to then be able to develop a di stinct plan. Been seen by general surgery with no plans for surgical attention to this site. Blood cultures in process. The family is made aware of current plans. 05/03/2019. Little change of the patient's status. She's been evaluated by general surgery as well as orthopedic surgery. Another service believes that she is a surgical candidate. Interventional radiology did not believe the very small fluid collection was not amenable to percutaneous drainage. The patient is a very poor surgical candidate. The current plan will be to monitor blood culture. If this is negative within plan placement of IV access so that she can receive a course of intravenous antibiotic therapy at the [facility]. The family is willing to have her go to rehab where she'll receive some therapy and her antibiotic therapy. Given the small nature of this abscess to be amenable to antibiotic therapy. The family understands that she is not a good surgical candidate. And if she has any worsening of her status would need to go to a tertiary care center for evaluation. 05/04/2019 the patient continues to have significant pain. As noted she is not a surgical candidate and the abscess was too small for percutaneous drainage per interventional radiology. The plan at this point in time will be to have a midline catheter placed. She will then be treated for a couple of weeks of intravenous antibiotic therapy with Zosyn at the care facility. Hopefully with antibiotics and some physical therapy she will regain her strength and get back to living with her family thereafter. Current Visit: Yes Status: Acute Code(s): M46.20 - OSTEOMYELITIS OF VERTEBRA, SITE UNSPECIFIED SNOMED Code(s): 87074302848932283
[2019-05-05] MEDS: PIPERACILLIN-TAZOBACTAM 3.375 GM in SODIUM CHLORIDE 0.9% 100 ML IVPB SCH ×3 (00:56→16:36)
[2019-05-05] MEDS: LACOSAMIDE 50 MG TABLET PO SCH ×2 (05:52→16:36)
[2019-05-05] MEDS: HYDROcodone/APAP 7.5-325MG 1 EACH TAB PO PRN (05:54)
[2019-05-05] MEDS: HEPARIN SODIUM,PORCINE 5,000 UNIT/ML 1 ML VIAL SQ SCH ×2 (08:08→21:15)
[2019-05-05] MEDS: LIDOCAINE 5% PATCH TOPICAL SCH (08:09)
[2019-05-05] MEDS: CARVEDILOL 6.25 MG TAB PO SCH ×2 (08:09→16:36)
[2019-05-05] MEDS: LACTOBACILLUS ACIDOPH & BULGAR 1 EACH PACKET PO SCH (08:10)
[2019-05-05] MEDS: levETIRAcetam ORAL SOLN 500 MG/5 ML CUP PO SCH ×2 (08:10→21:15)
[2019-05-05] MEDS: amLODIPine 2.5 MG TAB PO SCH (08:10)
[2019-05-05] MEDS: LISINOPRIL 20 MG TAB PO SCH ×2 (08:10→21:15)
[2019-05-05] MEDS: AMIODARONE 200 MG TAB PO SCH (08:10)
[2019-05-05] MEDS: PANTOPRAZOLE 40 MG TABLET PO SCH (08:10)
--- NOTE | 2019-05-05 19:24 | P.PN ---
Subjective Progress Note Date: 05/05/19 Principal diagnosis: This is an 84-year-old female was recently admitted with significant abdominal pain, nausea, also thought to have partial bowel obstruction and is being closely monitored. Patient was also found to have an acute paraspinal abscess and psoas abscess on the right side. Multiple medical consultations are following including infectious disease, orthopedic surgery, and surgery. Patient is maintained on IV antibiotics in the form of Zosyn and Vanco will continue at this time. Per the orthopedic surgery, Dr. Gutierres is recommending conservative line of treatment at this time. Patient's hemoglobin this morning was 6.9 and ordered a repeat came back as 7.1. Patient underwent a CAT scan of the abdomen and pelvis without contrast showing progressive fluid overload with some moderate interstitial pulmonary edema with a trace of pericardial effusion, anasarca, and mesenteric edema with a trace amount of ascites. A chest x-ray was also done showing shifting atelectasis circumflex lymphedema that's improved on the right and worsened on left with overall fluid overload that similar in degree. Patient denies any chest pain, shortness of breath, or palpitations at this time. Patient is afebrile. Patient denies any nausea or vomiting and is tolerating diet. Blood cultures thus far are negative. Guarded prognosis. Will continue to monitor closely. 05/04/2019 Patient is lying in bed in no acute distress. No acute overnight issues. No family at the bedside today. Patient is pleasant and responds to commands but is confused. Patient is currently awaiting placement in an ECF for continued IV antibiotic therapy as well as physical therapy for strength and mobility. Blood cultures thus far are negative. Patient denies any chest pain, palpitations, or shortness of breath at this time. Patient is afebrile. Patient denies any nausea or vomiting and is tolerating diet. Patient is lying comfortably on room air in no distress. Per surgery, patient is not a surgical candidate and will treat conservatively at this time. Guarded prognosis. Will continue to monitor closely. 05/05/2019 Patient is sitting up in the chair in no acute distress. Patient is asleep but arousable. Patient has a food tray in front of her and not eating very well. Patient needs to be assisted. Patient ate 2-3 bites of her meal. Patient is lethargic and groggy. Patient received a midline and is awaiting for final authorization of a rehab facility for continued strength and mobility and continued IV antibiotic therapy. No family is at the bedside. Blood cultures rem ain negative. Patient appears to be dehydrated with dry oral mucus membranes and poor skin turgor. Will start gentle hydration with IV NS and repeat labs in the am. Will continue to monitor closely. Objective - Vital Signs Vital signs: Vital Signs Temp 97.9 F 05/05/19 14:51 Pulse 61 05/05/19 14:51 Resp 16 05/05/19 14:51 BP 132/73 05/05/19 14:51 Pulse Ox 98 05/05/19 14:51 Intake & Output 05/04/19 05/05/19 05/05/19 18:59 06:59 18:59 Intake Total 420 Balance 420 Intake: Oral 420 Other: Voiding Method Bedpan Bedpan Bedpan # Voids 2 1 1 # Bowel Movements 1 - Exam Gen: This is a 84-year-old female sitting up in the chair in no acute distress. Vital signs are stable. Temp is 98.4F, pulse is 60, respirations are 16, blood pressure is 146/77, oxygen saturation is 94% on room air. HEENT: Head is atraumatic, normocephalic. Pupils equal, round. Sclerae is anicteric. mucus membranes are dry. NECK: Supple. No JVD. No lymphadenopathy. No thyromegaly. LUNGS: Breath sounds are diminished at the bases with a few scattered crackles noted. No intercostal retractions. HEART: S1, S2 are muffled ABDOMEN: Soft. Bowel sounds are present. No masses. No tenderness. EXTREMITIES: No pedal edema. No calf tenderness. NEUROLOGICAL: Patient is awake, alert and oriented x1-2. 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 Multiple medical consultations are following. Will continue to mon itor closely. Patient being started on gentle IV hydration for possible dehydration. Will repeat am labs and monitor vital signs closely. Patient is to continue on IV antibiotics at this time and infectious disease is following closely. Blood cultures thus far are negative and will continue to monitor. Case management and social work are following for rehab placement upon discharge and will work with infectious disease for continued IV antibiotic therapy in the outpatient setting.Patient received a midline. Due to multiple complex medical issues prognosis is extremely guarded. Will continue to monitor closely. Further recommendations to follow. Possible discharge in 24-48 hours.
--- NOTE | 2019-05-05 19:59 | PN ---
PROGRESS NOTE DATE OF SERVICE: 05/05/2019 This 84-year-old woman who was admitted with a retroperitoneal abscess is being closely monitored at this time. The patient also had abdominal pain, nausea and vomiting. Patient is on empiric antibiotics. The abscess is small; not big enough for a needle aspiration trial, so the patient is empirically being treated. Patient is not a surgical candidate. Patient also has back pain, partially complying with a brace at this time. PT/OT is evaluating for ECF rehab at this time. Multiple consultants are following the patient. Past medical history reviewed. REVIEW OF SYSTEMS: CARDIOVASCULAR SYSTEM: No angina, palpitations. RESPIRATORY SYSTEM: No cough, hemoptysis. GI: No nausea, vomiting. : No dysuria or retention. NERVOUS SYSTEM: No numbness, weakness. CURRENT MEDICATIONS: 1. Tylenol. 2. [place] 7.5. 3. Cordarone. 4. Norvasc. 5. Coreg. 6. Heparin. 7. Vimpat. 8. Lactinex. 9. Cephulac. 10.Keppra. 11.Lidoderm. 12.Zestril. 13.Narcan. 14.Nitrostat. 15.Protonix. Doses are reviewed. PHYSICAL EXAMINATION: Patient is alert, oriented x3. Pulse is 61. Blood pressure is 130/73, respiration 16, temperature 97.9, pulse ox 98% on room air. HEENT: Conjunctivae normal. NECK: No jugular venous distention. CARDIOVASCULAR SYSTEM: S1, S2 muffled. RESPIRATORY SYSTEM: Breath sounds diminished at the bases. Bilateral scattered rhonchi and crackles. ABDOMEN: Soft, non-tender. No mass palpable. EXAMINATION OF THE BACK: Some tenderness present. No guarding. No rigidity. NERVOUS SYSTEM: No focal deficit. LABS: WBC 8.9, hemoglobin 7.7. Sodium 133, potassium 3.4. Other labs are noted. ASSESSMENT: 1. Abdominal pain, nausea, vomiting; possibly partial small-bowel obstruction. 2. Acute paraspinal abscess as well as right psoas abscess on the right. 3. 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 4. Anemia of chronic disease. 5. Hyponatremia. 6. Increased AST, ALT of undetermined etiology. 7. Possible urinary tract infection, present on admission. 8. Atrial fibrillation. 9. Diabetes mellitus, type 2. 10.Seizure disorder. 11.Gait dysfunction. 12.History of brain aneurysm with seizures. 13.History of T12 fracture. 14.Severe protein-calorie malnutrition with a body mass index of 20.6. 15.FULL CODE. RECOMMENDATIONS AND DISCUSSION: I recommend to continue current medications, continue with the monitoring, symptomatic treatment. Continue with the IV antibiotics. PICC line mid line. ECF rehab. Guarded prognosis because of multiple complex medical issues. Further recommendations to follow. MMNOLBERTO / IJN: [id number] /
[2019-05-05] MEDS: SODIUM CHLORIDE 0.9% 1,000 ML IV SCH (21:16)
[2019-05-06] MEDS: PIPERACILLIN-TAZOBACTAM 3.375 GM in SODIUM CHLORIDE 0.9% 100 ML IVPB SCH ×4 (00:31→23:48)
[2019-05-06] MEDS ORDERED: hydrALAZINE HCL 20 MG/ML 1 ML VIAL IVP STA (01:56)
[2019-05-06] MEDS: LACOSAMIDE 50 MG TABLET PO SCH ×2 (06:04→17:46)
[2019-05-06 07:27] LABS: Basophils # (A) 0.1 k/uL (0-0.2); Basophils % (A) 1 %; Eosinophils # (A) 0.1 k/uL (0-0.7); Eosinophils % (A) 1 %; HCT 24.5 % (34.0-46.0); HGB 7.8 gm/dL (11.4-16.0); Lymphocytes # (A) 0.6 k/uL (1.0-4.8); Lymphocytes % (A) 5 %; MCH 29.3 pg (25.0-35.0); MCHC 31.7 g/dL (31.0-37.0); MCV 92.4 fL (80.0-100.0); Mean Platelet Volume 6.3; Monocytes # (A) 0.6 k/uL (0-1.0); Monocytes % (A) 6 %; Neutrophils # (A) 8.5 k/uL (1.3-7.7); Neutrophils % (A) 84 %; Platelet Count 374 k/uL (150-450); RBC 2.65 m/uL (3.80-5.40); RDW 15.6 % (11.5-15.5); WBC 10.2 k/uL (3.8-10.6)
[2019-05-06 07:41] LABS: African American GFR (CKD) >90 (>60 ml/min/1.73 sqM); Anion Gap 5 mmol/L; Blood Urea Nitrogen 10 mg/dL (7-17); Calcium 8.3 mg/dL (8.4-10.2); Carbon Dioxide 32 mmol/L (22-30); Chloride 94 mmol/L (98-107); Glucose 91 mg/dL (74-99); Non-African American GFR(CKD) 82 (>60 ml/min/1.73 sqM); Potassium 3.8 mmol/L (3.5-5.1); Sodium 131 mmol/L (137-145)
[2019-05-06] MEDS: PANTOPRAZOLE 40 MG TABLET PO SCH (10:06)
[2019-05-06] MEDS: AMIODARONE 200 MG TAB PO SCH (10:06)
[2019-05-06] MEDS: LIDOCAINE 5% PATCH TOPICAL SCH (10:06)
[2019-05-06] MEDS: amLODIPine 2.5 MG TAB PO SCH (10:06)
[2019-05-06] MEDS: LISINOPRIL 20 MG TAB PO SCH ×2 (10:06→21:33)
[2019-05-06] MEDS: CARVEDILOL 6.25 MG TAB PO SCH ×2 (10:06→17:46)
[2019-05-06] MEDS: levETIRAcetam ORAL SOLN 500 MG/5 ML CUP PO SCH ×2 (10:07→21:33)
[2019-05-06] MEDS: HEPARIN SODIUM,PORCINE 5,000 UNIT/ML 1 ML VIAL SQ SCH ×2 (10:08→21:33)
[2019-05-06] MEDS: LACTOBACILLUS ACIDOPH & BULGAR 1 EACH PACKET PO SCH (10:08)
--- NOTE | 2019-05-06 15:07 | P.PN ---
Subjective Progress Note Date: 05/06/19 Principal diagnosis: This is an 84-year-old female was recently admitted with significant abdominal pain, nausea, also thought to have partial bowel obstruction and is being closely monitored. Patient was also found to have an acute paraspinal abscess and psoas abscess on the right side. Multiple medical consultations are following including infectious disease, orthopedic surgery, and surgery. Patient is maintained on IV antibiotics in the form of Zosyn and Vanco will continue at this time. Per the orthopedic surgery, Dr. Gutierres is recommending conservative line of treatment at this time. Patient's hemoglobin this morning was 6.9 and ordered a repeat came back as 7.1. Patient underwent a CAT scan of the abdomen and pelvis without contrast showing progressive fluid overload with some moderate interstitial pulmonary edema with a trace of pericardial effusion, anasarca, and mesenteric edema with a trace amount of ascites. A chest x-ray was also done showing shifting atelectasis circumflex lymphedema that's improved on the right and worsened on left with overall fluid overload that similar in degree. Patient denies any chest pain, shortness of breath, or palpitations at this time. Patient is afebrile. Patient denies any nausea or vomiting and is tolerating diet. Blood cultures thus far are negative. Guarded prognosis. Will continue to monitor closely. 05/04/2019 Patient is lying in bed in no acute distress. No acute overnight issues. No family at the bedside today. Patient is pleasant and responds to commands but is confused. Patient is currently awaiting placement in an ECF for continued IV antibiotic therapy as well as physical therapy for strength and mobility. Blood cultures thus far are negative. Patient denies any chest pain, palpitations, or shortness of breath at this time. Patient is afebrile. Patient denies any nausea or vomiting and is tolerating diet. Patient is lying comfortably on room air in no distress. Per surgery, patient is not a surgical candidate and will treat conservatively at this time. Guarded prognosis. Will continue to monitor closely. 05/05/2019 Patient is sitting up in the chair in no acute distress. Patient is asleep but arousable. Patient has a food tray in front of her and not eating very well. Patient needs to be assisted. Patient ate 2-3 bites of her meal. Patient is lethargic and groggy. Patient received a midline and is awaiting for final authorization of a rehab facility for continued strength and mobility and continued IV antibiotic therapy. No family is at the bedside. Blood cultures rem ain negative. Patient appears to be dehydrated with dry oral mucus membranes and poor skin turgor. Will start gentle hydration with IV NS and repeat labs in the am. Will continue to monitor closely. 05/06/2019 Patient is lying in bed in no acute distress with no overnight issues. Patient's blood pressure was slightly elevated overnight and was given a dose of hydralazine IV push. This morning patient is more awake and alert and responding appropriately to questions and commands. Patient continues to eat poorly but did manage to eat her whole yogurt this morning for breakfast. Patient denies any chest pain, shortness of breath, or palpitations at this time. Patient denies any nausea or vomiting. Patient has been afebrile. Patient is currently on IV antibiotics per infectious disease recommendations and will continue at this time. Patient is not a good surgical candidate and is being followed by Dr. Gomez and will continue with IV antibiotics in the outpatient setting. A midline was placed. Repeat labs this morning showed a potassium of 3.8 and a sodium of 131. Will continue to monitor closely. Objective - Vital Signs Vital signs: Vital Signs Temp 98.2 F 05/06/19 08:25 Pulse 77 05/06/19 08:25 Resp 16 05/06/19 08:25 BP 188/77 05/06/19 08:25 Pulse Ox 94 L 05/06/19 08:25 Intake & Output 05/05/19 05/06/19 05/06/19 18:59 06:59 18:59 Intake Total 350 Output Total 240 Balance -240 350 Intake: Intake, IV Titration 250 Amount Sodium Chloride 0.9% 1, 250 000 ml @ 50 mls/hr IV . Q20H [facility] Rx#:[id number] Oral 100 Output: Urine 240 Other: Voiding Method Bedpan Bedpan Bedpan # Voids 1 4 # Bowel Movements 1 - Exam Gen: This is a 84-year-old female lying in bed in no acute distress. Vital signs are stable. Temp is 98.2F, pulse is 77, respirations are 16, blood pressure is 188/77, oxygen saturation is 94% on room air. HEENT: Head is atraumatic, normocephalic. Pupils equal, round. Sclerae is anicteric. mucus membranes are dry. NECK: Supple. No JVD. No lymphadenopathy. No thyromegaly. LUNGS: Breath sounds are diminished at the bases with a few scattered crackles noted. No intercostal retractions. HEART: S1, S2 are muffled ABDOMEN: Soft. Bowel sounds are present. No masses. No tenderness. EXTREMITIES: No pedal edema. No calf tenderness. NEUROLOGICAL: Patient is awake, alert and oriented x1-2. No focal deficits - Labs CBC & Chem 7: 05/06/19 07:04 05/06/19 07:04 Labs: Abnormal Lab Results - Last 24 Hours (Table) 05/06/19 05/06/19 Range/Units 07:04 07:04 RBC 2.65 L (3.80-5.40) m/uL Hgb 7.8 L (11.4-16.0) gm/dL Hct 24.5 L (34.0-46.0) % RDW 15.6 H (11.5-15.5) % Neutrophils # 8.5 H (1.3-7.7) k/uL Lymphocytes # 0.6 L (1.0-4.8) k/uL Sodium 131 L (137-145) mmol/L Chloride 94 L (98-107) mmol/L Carbon Dioxide 32 H (22-30) mmol/L Calcium 8.3 L (8.4-10.2) mg/dL Microbiology - Last 24 Hours (Table) 04/30/19 23:21 Blood Culture - Preliminary Blood No Growth after 120 hours Assessment and Plan Assessment: Abdominal pain, nausea, vomiting, possible partial small bowel obstruction Possible acute paraspinal psoas abscess on the right 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 Multiple medical consultations are following. Will continue to monitor closely. Family is agreeable to [facility] for continued PT/OT therapy as well as IV antibiotic maintenance. Case management and social work are following closely and arranging for these accommodations at the [facility]. Due to multiple complex medical issues prognosis is extremely guarded. Will continue to monitor closely. Further recommendations to follow. Possible discha rge in 24 hours.
[2019-05-06] MEDS: SODIUM CHLORIDE 0.9% 1,000 ML IV SCH (15:34)
[2019-05-06] MEDS: DOCUSATE 100 MG CAP PO SCH (21:33)
[2019-05-07] MEDS: LACOSAMIDE 50 MG TABLET PO SCH (04:26)
[2019-05-07] MEDS: CARVEDILOL 6.25 MG TAB PO SCH (07:17)
[2019-05-07] MEDS: LACTOBACILLUS ACIDOPH & BULGAR 1 EACH PACKET PO SCH (10:07)
[2019-05-07] MEDS: SODIUM CHLORIDE 0.9% 1,000 ML IV SCH (10:07)
[2019-05-07] MEDS: AMIODARONE 200 MG TAB PO SCH (10:08)
[2019-05-07] MEDS: DOCUSATE 100 MG CAP PO SCH (10:08)
[2019-05-07] MEDS: PIPERACILLIN-TAZOBACTAM 3.375 GM in SODIUM CHLORIDE 0.9% 100 ML IVPB SCH (10:08)
[2019-05-07] MEDS: amLODIPine 2.5 MG TAB PO SCH (10:08)
[2019-05-07] MEDS: HEPARIN SODIUM,PORCINE 5,000 UNIT/ML 1 ML VIAL SQ SCH (10:08)
[2019-05-07] MEDS: PANTOPRAZOLE 40 MG TABLET PO SCH (10:24)
[2019-05-07] MEDS: LISINOPRIL 20 MG TAB PO SCH (10:24)
[2019-05-07 10:32] VITALS: BMI 20.5
[2019-05-07] MEDS: levETIRAcetam ORAL SOLN 500 MG/5 ML CUP PO SCH (10:54)
[2019-05-07] MEDS: LIDOCAINE 5% PATCH TOPICAL SCH (10:56)
[2019-05-07 11:45] LABS: Basophils % (A) 0 %; Eosinophils # (A) 0.1 k/uL (0-0.7); Eosinophils % (A) 1 %; HCT 22.4 % (34.0-46.0); HGB 7.2 gm/dL (11.4-16.0); Lymphocytes # (A) 0.4 k/uL (1.0-4.8); Lymphocytes % (A) 5 %; MCH 30.1 pg (25.0-35.0); MCHC 31.9 g/dL (31.0-37.0); MCV 94.2 fL (80.0-100.0); Mean Platelet Volume 5.8; Monocytes # (A) 0.4 k/uL (0-1.0); Monocytes % (A) 5 %; Neutrophils # (A) 7.1 k/uL (1.3-7.7); Neutrophils % (A) 86 %; Platelet Count 334 k/uL (150-450); RBC 2.38 m/uL (3.80-5.40); RDW 15.8 % (11.5-15.5); WBC 8.2 k/uL (3.8-10.6)
--- NOTE | 2019-05-07 12:50 | P.DS ---
Providers Date of admission: 05/02/19 09:09 Expected date of discharge: 05/07/19 Attending physician: Emilie De La Torre Consults: 04/30/19 23:25 Consult Physician Routine Consulting Provider: Rock Gomez Consult Reason/Comments: Psoas abscess Do you want consulting provider notified?: Yes Consult Physician Routine Consulting Provider: Bing Stein Consult Reason/Comments: Psoas abscess Do you want consulting provider notified?: Yes 05/01/19 15:01 Consult Physician Routine Consulting Provider: Kalli Gutierres Consult Reason/Comments: djd, psoas/ paraspinal absecss Do you want consulting provider notified?: Yes [facility] Course: Final diagnosis Abdominal pain, nausea, vomiting, possible partial small bowel obstruction Possible acute paraspinal psoas abscess on the right 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 Per infectious disease recommendations IV antibiotics have been arranged for the outpatient setting. Total time taken is 35 minutes. History of present illness This is an 84-year-old female that was recently admitted with a significant abdominal pain, nausea, also thought to have partial bowel obstruction and was being closely monitored. Patient was found to have acute paraspinal abscess and psoas abscess on the right side and infectious disease is following closely. Patient will continue with IV antibiotic therapy in the outpatient setting as the patient is not a good surgical candidate at this time. This was discussed with the family at length and are agreeable to this treatment plan at this time. During hospitalization patient had an CAT scan of the abdomen and pelvis showing some fluid overload with some mesenteric edema and a trace amount of ascites. Patient was being followed by multiple medical consultations. Patient's blood pressure during hospitalization was slightly elevated and will continue on oral anti-hypertensive medications in the outpatient setting. Patient will follow-up with her primary care provider Dr. Huntley, Dr. Gomez, and physician press assistant and feeder Tono Wylie with orthopedics in the outpatient setting as scheduled. Currently patient's condition is stable and is ready for discharge. Patient will need repeat labs in 2-3 days to monitor hemoglobin and electrolytes. Recent hemoglobin today was 7.2. Extremely guarded prognosis. On exam vital signs are stable. Temp is 97.2F, pulse is 75, respirations are 16, blood pressure is 155/65, oxygen saturation is 94% on room air. Cardio S1 and S2 are muffled. Respiratory system shows diminished breath sounds at the bases with no wheezing noted. Abdomen is soft, thin, nontender. Nervous system shows no focal deficits with moderate diffuse weakness. Please refer to medication reconciliation sheet for a list of medications. Patient Condition at Discharge: Fair Plan - Discharge Summary Discharge Rx Participant: Yes New Discharge Prescriptions: New Piperacillin-Tazobactam [Zosyn] 3.375 gm IVPB Q6HR #56 vial Amiodarone [Cordarone] 200 mg PO DAILY tab Continue levETIRAcetam [Keppra Oral Solution] 100 mg PO BID Carvedilol [Coreg] 6.25 mg PO BID Pantoprazole [Protonix] 40 mg PO DAILY Lacosamide [Vimpat] 50 mg PO Q12H Cholecalciferol [Vitamin D3 (25 Mcg = 1000 Iu)] 1,000 unit PO DAILY Lisinopril [Zestril] 20 mg PO BID amLODIPine [Norvasc] 2.5 mg PO DAILY Apixaban [Eliquis] 2.5 mg PO BID Atorvastatin [Lipitor] 20 mg PO DAILY Lactobacillus Acidophilus [Acidophilus] 1 tab PO DAILY Nitroglycerin Sl Tabs [Nitrostat] 0.4 mg SUBLINGUAL Q5M PRN PRN Reason: Chest Pain Lidocaine 5% Patch [Lidoderm 5% Patch] 1 patch TOPICAL DAILY #10 patch metFORMIN HCL [Glucophage] 500 mg PO DAILY #0 Acetaminophen [Tylenol Arthritis] 1,300 mg PO Q4H PRN PRN Reason: Pain Or Fever > 100.5 Famotidine [Pepcid] 20 mg PO BID Lactulose [Cephulac] 10 gm PO DAILY PRN PRN Reason: Constipation Polyethylene Glycol 3350 [Miralax] 17 gm PO DAILY HYDROcodone/APAP 7.5-325MG [[place] 7.5-325] 1 tab PO Q6H PRN #2 tab PRN Reason: Pain Discontinued Amiodarone [Cordarone] 200 mg PO BID Methyl Salicylate/Menthol [Salonpas Patch] 1 patch TOPICAL Q12H Discharge Medication List Carvedilol [Coreg] 6.25 mg PO BID 10/05/18 [History] Cholecalciferol [Vitamin D3 (25 Mcg = 1000 Iu)] 1,000 unit PO DAILY 10/05/18 [History] Lacosamide [Vimpat] 50 mg PO Q12H 10/05/18 [History] Pantoprazole [Protonix] 40 mg PO DAILY 10/05/18 [History] levETIRAcetam [Keppra Oral Solution] 100 mg PO BID 10/05/18 [History] Lisinopril [Zestril] 20 mg PO BID 03/02/19 [History] Apixaban [Eliquis] 2.5 mg PO BID 04/01/19 [History] Atorvastatin [Lipitor] 20 mg PO DAILY 04/01/19 [History] Lactobacillus Acidophilus [Acidophilus] 1 tab PO DAILY 04/01/19 [History] Nitroglycerin Sl Tabs [Nitrostat] 0.4 mg SUBLINGUAL Q5M PRN 04/01/19 [History] amLODIPine [Norvasc] 2.5 mg PO DAILY 04/01/19 [History] Lidocaine 5% Patch [Lidoderm 5% Patch] 1 patch TOPICAL DAILY #10 patch 04/02/19 [Rx] metFORMIN HCL [Glucophage] 500 mg PO DAILY #0 04/02/19 [Rx] Acetaminophen [Tylenol Arthritis] 1,300 mg PO Q4H PRN 04/30/19 [History] Famotidine [Pepcid] 20 mg PO BID 04/30/19 [History] Lactulose [Cephulac] 10 gm PO DAILY PRN 04/30/19 [History] Polyethylene Glycol 3350 [Miralax] 17 gm PO DAILY 04/30/19 [History] Piperacillin-Tazobactam [Zosyn] 3.375 gm IVPB Q6HR #56 vial 05/06/19 [Rx] Amiodarone [Cordarone] 200 mg PO DAILY tab 05/07/19 [Rx] HYDROcodone/APAP 7.5-325MG [[place] 7.5-325] 1 tab PO Q6H PRN #2 tab 05/07/19 [Rx] Follow up Appointment(s)/Referral(s): Rock Gomez MD [STAFF PHYSICIAN] - 3 Weeks Trevin Wylie PAC [PHYSICIAN GROUP DIRECTOR] - 05/18/19 2:30 pm (Patient may follow-up with Trevin Wylie PA-C or Dr. Cesar Gutierres at [facility] as previously scheduled following discharge. ) Adam Huntley DO [Primary Care Provider] - 1-2 days Ambulatory/Diagnostic Orders: Basic Metabolic Panel [LAB.AMB] Location: None Selected Complete Blood Count w/diff [LAB.AMB] Location: None Selected Activity/Diet/Wound Care/Special Instructions: 1. Patient may wear Exos LSO brace for comfort and support while sitting upright at greater than 45, while working with therapy, and while ambulating; patient does not have to wear the brace while lying in bed or bathing 2. Patient should avoid excessive bending, twisting, and lifting; no lifting greater than 10 pounds Activity as tolerated Continue with antibiotic therapy per infectious disease Repeat labs in 2-3 days Continue current diet and encourage small snacks Follow-up with primary care provider upon discharge Discharge Disposition: TRANSFER TO SNF/ECF
[2019-05-07 14:56] VITALS: BP 155/63; PULSE 63; RESP 17; TEMP 97.8
== END 2019-05-07 15:45 | DRG 371 ==
LOC: EC 18:20 → 4SSUR 23:24 → OBSVTOIN 05-02 09:09
PROVIDERS: ADMIT Hospitalist; ATTEND Hospitalist
PROC: 05HD33Z Insertion of Infusion Device into Right Cephalic Vein, Percutaneous Approach (ICD-10-PCS; principal; 2019-05-05 07:30)
DX: K68.12 Psoas muscle abscess (principal); E43 Unspecified severe protein-calorie malnutrition; E87.1 Hypo-osmolality and hyponatremia; J81.1 Chronic pulmonary edema; J98.11 Atelectasis; M48.54XA Collapsed vertebra, not elsewhere classified, thoracic region, initial encounter for fracture; M48.56XA Collapsed vertebra, not elsewhere classified, lumbar region, initial encounter for fracture; M51.06 Intervertebral disc disorders with myelopathy, lumbar region; N39.0 Urinary tract infection, site not specified; Z68.20 Body mass index [BMI] 20.0-20.9, adult; D63.8 Anemia in other chronic diseases classified elsewhere; E86.0 Dehydration; E87.70 Fluid overload, unspecified; F03.90 Unspecified dementia, unspecified severity, without behavioral disturbance, psychotic disturbance, mood disturbance, and anxiety; G40.909 Epilepsy, unspecified, not intractable, without status epilepticus; G89.29 Other chronic pain; I10 Essential (primary) hypertension; I48.91 Unspecified atrial fibrillation; M40.204 Unspecified kyphosis, thoracic region; M46.96 Unspecified inflammatory spondylopathy, lumbar region; M47.9 Spondylosis, unspecified; M51.16 Intervertebral disc disorders with radiculopathy, lumbar region; Z79.01 Long term (current) use of anticoagulants; Z79.84 Long term (current) use of oral hypoglycemic drugs; Z79.899 Other long term (current) drug therapy; Z82.49 Family history of ischemic heart disease and other diseases of the circulatory system
CPT/HCPCS: 36410; 36415; 71045; 74176; 74177; 76937; 80048; 80053; 80202; 81001; 82150; 83605; 83690; 85025; 85027; 85610; 85652; 86140; 87040; 93005; 96365; 96375; 99285

== ENCOUNTER → 2019-04-30 | Outpatient (CLI) | payer MEDICARE ==
--- NOTE | 2019-05-02 18:58 | XR ---
EXAMINATION TYPE: XR abdomen 1V DATE OF EXAM: 04/30/2019 Comparison: 04/07/2019 Clinical History: 84-year-old female R109,R110,R197 ABD PAIN,DIARRHEA,NAUSEA Findings: Moderate stool burden with gassy abdomen. No dilated small bowel loops seen. No evidence for free int raperitoneal air. Ovoid density in the right mid abdomen likely a stool ball. Degenerative levoconvex curvature of the lumbar spine. Atherosclerotic calcifications left upper quadrant. L3 vertebral compression collapse progressed from prior. Impression: 1. Gassy abdomen with moderate stool. Overall nonobstructive bowel gas pattern. No free air seen. 2. L3 vertebral compression collapse progressed from prior exam.
== END | disposition home or self-care (01) ==
LOC: RADXRYALE 16:10
PROVIDERS: ATTEND Physician Assistant Medical
DX: R14.0 Abdominal distension (gaseous) (principal); R19.5 Other fecal abnormalities; R11.0 Nausea; R19.7 Diarrhea, unspecified
CPT/HCPCS: 74018

== ENCOUNTER 2019-05-27 13:00 | Emergency (ER) | payer MEDICARE, BC ==
[2019-05-27] MEDS ORDERED: SODIUM CHLORIDE 0.9% 500 ML 500 ML IV STA (13:38)
--- NOTE | 2019-05-27 14:11 | ED ---
General Adult HPI - General Chief complaint: Urogenital Stated complaint: UROGENITAL Time Seen by Provider: 05/27/19 13:05 Source: patient, family, EMS Mode of arrival: EMS Limitations: no limitations - History of Present Illness Initial comments: Patient presents to the ED by ambulance from her senior living for evaluation with her daughter and son-in-law at bedside. Patient states that she has had watery diarrhea since this morning, and she states that the senior living staff reported to her that she had stool coming out of her vagina. Patient admits to having chronic lumbar back pain, which is unchanged. Patient denies any other site of pain. Patient denies fever or chills, headache, focal neuro deficit, chest pain, dyspnea, cough or cold symptoms, abdominal pain, rectal pain, nausea or vomiting, bloody or melanotic stool, dysuria or urinary symptoms, urinary retention or incontinence, leg pain/weakness/numbness, or any other symptoms or complaints. Patient's daughter states that the patient recently completed a course of antibiotics. - Related Data Home Medications Medication Instructions Recorded Confirmed Carvedilol [Coreg] 6.25 mg PO BID 10/05/18 05/27/19 Cholecalciferol [Vitamin D3 (25 1,000 unit PO DAILY@0600 10/05/18 05/27/19 Mcg = 1000 Iu)] Lacosamide [Vimpat] 50 mg PO Q12H 10/05/18 05/27/19 Pantoprazole [Protonix] 40 mg PO DAILY@0600 10/05/18 05/27/19 levETIRAcetam [Keppra Oral 100 mg PO BID 10/05/18 05/27/19 Solution] Lisinopril [Zestril] 20 mg PO BID 03/02/19 05/27/19 Apixaban [Eliquis] 2.5 mg PO BID 04/01/19 05/27/19 Atorvastatin [Lipitor] 20 mg PO HS@199904/01/19 05/27/19 Lactobacillus Acidophilus 1 tab PO DAILY@1400 04/01/19 05/27/19 [Acidophilus] Nitroglycerin Sl Tabs [Nitrostat] 0.4 mg SUBLINGUAL Q5M PRN 04/01/19 05/27/19 amLODIPine [Norvasc] 2.5 mg PO DAILY@1400 04/01/19 05/27/19 Acetaminophen [Tylenol Arthritis] 650 mg PO Q8H PRN 04/30/19 05/27/19 Famotidine [Pepcid] 20 mg PO BID 04/30/19 05/27/19 Lactulose [Cephulac] 10 gm PO DAILY PRN 04/30/19 05/27/19 Polyethylene Glycol 3350 [Miralax] 17 gm PO DAILY@0600 04/30/19 05/27/19 Amiodarone [Cordarone] 200 mg PO DAILY@0600 05/27/19 05/27/19 Ferrous Sulfate [Iron] 325 mg PO BID 05/27/19 05/27/19 Menthol [Icy Hot] 1 patch TRANSDERM BID 05/27/19 05/27/19 metFORMIN HCL [Glucophage] 500 mg PO DAILY@0600 05/27/19 05/27/19 Previous Rx's Medication Instructions Recorded HYDROcodone/APAP 7.5-325MG [[place] 1 tab PO Q6H PRN #2 tab 05/07/19 7.5-325] Allergies Allergy/AdvReac Type Severity Reaction Status Date / Time phenytoin [From Dilantin] Allergy Anaphylaxis Verified 05/27/19 14:58 ondansetron [From Zofran] AdvReac Unknown Verified 05/27/19 14:58 Review of Systems ROS Statement: Those systems with pertinent positive or pertinent negative responses have been documented in the HPI. ROS Other: All systems not noted in ROS Statement are negative. 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 Past Anesthesia/Blood Transfusion Reactions: No Reported Reaction Past Psychological History: No Psychological Hx Reported Smoking Status: Never smoker Past Alcohol Use History: None Reported Past Drug Use History: None Reported - Past Family History Daughter(s) Family Medical History: Osteoarthritis (OA) Additional Family Medical History / Comment(s): arthritis Father Family Medical History: Myocardial Infarction (ND) Additional Family Medical History / Comment(s): Father of a ND at the age of 51 yrs. Mother Family Medical History: Respiratory Disorder Additional Family Medical History / Comment(s): Mother of TB at the age of 34 yrs. General Exam Limitations: no limitations General appearance: alert, in no apparent distress Head exam: Present: atraumatic, normocephalic Eye exam: Present: normal appearance, EOMI ENT exam: Present: mucous membranes moist Neck exam: Present: other (Trachea is in midline). Absent: tenderness Respiratory exam: Present: normal lung sounds bilaterally. Absent: respiratory distress, wheezes, rales, rhonchi Cardiovascular Exam: Present: regular rate, normal rhythm, normal heart sounds, other (Radial pulses bilaterally) GI/Abdominal exam: Present: soft, hyperactive bowel sounds. Absent: distended, tenderness, guarding External exam: Present: normal external exam, other (ED RN Anastacia Garcia was present during an assisted with pelvic examination) Speculum exam: Present: other (A small amount of watery stool is noted in the patient's vaginal vault; no definite fistula tract is seen). Absent: vaginal bleeding Extremities exam: Present: full ROM. Absent: tenderness, pedal edema, calf tenderness Back exam: Present: normal inspection. Absent: tenderness, CVA tenderness (R), CVA tenderness (L) Neurological exam: Present: alert, oriented X3. Absent: motor sensory deficit Psychiatric exam: Present: normal affect, normal mood Skin exam: Present: warm, dry, intact, normal color Course Vital Signs 05/27/19 05/27/19 05/27/19 13:02 14:12 16:28 Temperature 97.5 F L Pulse Rate 57 L 53 L 71 Respiratory 16 16 18 Rate Blood Pressure 161/56 134/51 151/54 O2 Sat by Pulse 95 97 Oximetry Medical Decision Making - Medical Decision Making Patient is afebrile and without leukocytosis. Patient's abdomen is soft and nontender on exam. Patient's CT abdomen/pelvis with IV contrast does not provide an explanation for vaginal stool. Pelvic examination does not reveal a definite fistula tract. Patient has been unable to provide a stool specimen while in the ED. Patient and family are aware of the patient's test results, and they all feel comfortable with the patient being discharged back to her senior living at this time. They were counseled about diarrhea and good hygiene practices. Patient was instructed to drink plenty of water/fluids to stay hydrated. Patient and family were clearly explained return and follow-up instructions. - Lab Data Result diagrams: 05/27/19 14:00 05/27/19 14:00 Lab Results 05/27/19 05/27/19 05/27/19 Range/Units 14:00 14:00 14:00 WBC 8.0 (3.8-10.6) k/uL RBC 2.90 L (3.80-5.40) m/uL Hgb 9.0 L (11.4-16.0) gm/dL Hct 27.9 L (34.0-46.0) % MCV 96.2 (80.0-100.0) fL MCH 30.9 (25.0-35.0) pg MCHC 32.1 (31.0-37.0) g/dL RDW 16.7 H (11.5-15.5) % Plt Count 316 (150-450) k/uL Neutrophils % 77 % Lymphocytes % 10 % Monocytes % 9 % Eosinophils % 2 % Basophils % 0 % Neutrophils # 6.1 (1.3-7.7) k/uL Lymphocytes # 0.8 L (1.0-4.8) k/uL Monocytes # 0.7 (0-1.0) k/uL Eosinophils # 0.1 (0-0.7) k/uL Basophils # 0.0 (0-0.2) k/uL Anisocytosis Slight PT 11.9 (9.0-12.0) sec INR 1.1 (<1.2) APTT 26.4 (22.0-30.0) sec Sodium 132 L (137-145) mmol/L Potassium 3.7 (3.5-5.1) mmol/L Chloride 92 L (98-107) mmol/L Carbon Dioxide 36 H (22-30) mmol/L Anion Gap 4 mmol/L BUN 21 H (7-17) mg/dL Creatinine 0.88 (0.52-1.04) mg/dL Est GFR (CKD-EPI)AfAm 70 (>60 ml/min/1.73 sqM) Est GFR (CKD-EPI)NonAf 61 (>60 ml/min/1.73 sqM) Glucose 131 H (74-99) mg/dL Calcium 8.6 (8.4-10.2) mg/dL Total Bilirubin 0.5 (0.2-1.3) mg/dL AST 81 H (14-36) U/L ALT 64 H (9-52) U/L Alkaline Phosphatase 168 H (38-126) U/L Total Protein 6.5 (6.3-8.2) g/dL Albumin 3.1 L (3.5-5.0) g/dL Lipase 37 (23-300) U/L - Radiology Data Radiology results: report reviewed (CT abdomen/pelvis with IV contrast: No bowel obstruction, mild to moderate diffuse colonic fecal stasis, uterus is surgically absent, no cause of vaginal stool was clearly seen) Disposition Clinical Impression: Diarrhea Disposition: HOME SELF-CARE Condition: Stable Instructions (If sedation given, give patient instructions): Acute Diarrhea (ED) Additional Instructions: Return to the ER immediately should you develop increased or persistent diarrhea, bloody diarrhea, abdominal pain, a fever, feeling dizzy or faint, shortness of breath, or new or worsening symptoms. Follow up closely with your primary care provider. Is patient prescribed a controlled substance at d/c from ED?: No Referrals: Ferny Hawthorne DO [Primary Care Provider] - 1-2 days Time of Disposition: 17:29
[2019-05-27 14:12] LABS: Anisocytosis Slight; Basophils % (A) 0 %; Eosinophils # (A) 0.1 k/uL (0-0.7); Eosinophils % (A) 2 %; HCT 27.9 % (34.0-46.0); Lymphocytes # (A) 0.8 k/uL (1.0-4.8); Lymphocytes % (A) 10 %; MCH 30.9 pg (25.0-35.0); MCHC 32.1 g/dL (31.0-37.0); MCV 96.2 fL (80.0-100.0); Monocytes # (A) 0.7 k/uL (0-1.0); Monocytes % (A) 9 %; Neutrophils # (A) 6.1 k/uL (1.3-7.7); Neutrophils % (A) 77 %; Platelet Count 316 k/uL (150-450); RDW 16.7 % (11.5-15.5)
[2019-05-27 14:20] LABS: INR 1.1 (<1.2); Partial Thromboplastin Time 26.4 sec (22.0-30.0); Prothrombin Time 11.9 sec (9.0-12.0)
[2019-05-27 14:28] LABS: Albumin 3.1 g/dL (3.5-5.0); Calcium 8.6 mg/dL (8.4-10.2); Potassium 3.7 mmol/L (3.5-5.1); Total Bilirubin 0.5 mg/dL (0.2-1.3); Total Protein 6.5 g/dL (6.3-8.2)
--- NOTE | 2019-05-27 15:25 | CT ---
EXAMINATION TYPE: CT abdomen pelvis w con DATE OF EXAM: 05/27/2019 HISTORY: Diarrhea and reported vaginal stool. CT DLP: 479.2mGycm Automated Exposure Control for Dose Reduction was Utilized. CONTRAST: CT scan of the abdomen and pelvis is performed without oral but with IV Contrast, patient injected wi th 90 mL of Isovue 300. COMPARISON: CT 24 days ago. FINDINGS: LUNG BASES: Parenchymal fibrotic changes with honeycombing bilaterally more prominent in the peripher y is redemonstrated. Cardiomegaly with biatrial dilatation again seen. Negative Coronary artery calci fication also redemonstrated. LIVER/GB: Small dependent gallstones and gallbladder are thought present. PANCREAS: Generalized atrophy and ductal dilatation thought present. SPLEEN: Prominent calcification along course of tortuous splenic artery. ADRENALS: No significant abnormality is seen. KIDNEYS: Symmetric cortical medullary uptake and excretion without hydronephrosis. BOWEL: Or dilation bowel suboptimal due to lack of enteric contrast and patient having little intra-a bdominal fat. Stomach is poorly distended and are suboptimally evaluated. No suspicious small or larg e bowel dilatation. Some prominence of fecal material throughout the colon including low lying cecum into the right anterior pelvis.. UTERUS/ADNEXA: Uterus surgically absent or markedly atrophic. LYMPH NODES: No greater than 1cm abdominal or pelvic lymph nodes are appreciated. OSSEOUS STRUCTURES: Osseous structures are demineralized. Underlying levoconvex scoliosis centered at L3 level. Redemonstration of moderate to severe subacute comminuted fracture L3 level. Redemonstrati on of severe chronic compression fracture T12 level and moderate chronic compression fracture L5 leve l. Prominent facet arthropathy mid to lower lumbar spine. Moderate narrowing in both hip joints. OTHER: Fairly moderate calcified plaque of the aorta extending into branch vessels. Slight ectasia ax ial image 34 without greater than 3 cm dilatation. Previously visualized right psoas enhancing lesion not clearly seen. Slight asymmetric enlargement ri ght iliopsoas versus left iliopsoas noted. Persistent mild to moderate diffuse soft tissue anasarca. IMPRESSION: Suboptimal evaluation of bowel. No bowel obstruction. [id number] diffuse colonic fe kieran stasis. Uterus surgically absent. No cause of vaginal stool clearly seen.
[2019-05-27 16:31] VITALS: RESP 18
[2019-05-27 19:11] VITALS: BP 131/81; PULSE 70; TEMP 98
== END 2019-05-27 19:06 | disposition home or self-care (01) ==
LOC: EC 13:00
DX: R19.7 Diarrhea, unspecified (principal); G89.29 Other chronic pain; M54.5 Low back pain; I48.91 Unspecified atrial fibrillation; E11.9 Type 2 diabetes mellitus without complications; G40.909 Epilepsy, unspecified, not intractable, without status epilepticus; Z79.01 Long term (current) use of anticoagulants; Z79.84 Long term (current) use of oral hypoglycemic drugs; Z79.899 Other long term (current) drug therapy; Z88.8 Allergy status to other drugs, medicaments and biological substances
CPT/HCPCS: 99285; 36415; 80053; 83690; 85025; 85610; 85730; 74177; Q9967